=== PATIENT | female | born 1945 | race Caucasian/White ===

== ENCOUNTER 2019-10-05 14:15 | Outpatient (CLI) | payer MEDICARE, SELFPAY ==
[2019-10-05 15:08] LABS: Alanine Aminotransferase 24 U/L (0-33); Albumin Level 4.4 g/dL (3.5-5.2); Alkaline Phosphatase 57 IU/L (35-105); Anion Gap 15.7 (5-19); Aspartate Amino Transferase 29 U/L (0-32); Blood Urea Nitrogen 19 mg/dL (8-23); Calcium 10.3 mg/dL (8.5-10.5); Carbon Dioxide 25 mmol/L (22-29); Chloride 100 mmol/L (98-107); Globulin 3.5 g/dL (1.3-4.6); Glucose 296 mg/dL (65-115); Potassium 4.7 mmol/L (3.5-5.1); Sodium 136 mmol/L (136-145); Total Bilirubin 0.3 mg/dL (0.15-1.2); Total Protein 7.9 g/dL (6.6-8.7)
[2019-10-05 15:31] LABS: Basophils # 0.1 10^3/uL (0.0-0.1); Basophils % 0.7 %; Eosinophils # 0.2 10^3/uL (0.0-0.8); Eosinophils % 1.7 %; Hematocrit 41.9 % (37.0-47.0); Hemoglobin 13.9 g/dL (11.5-15.3); Lymphocytes # 2.5 10^3/uL (0.8-4.8); Lymphocytes % 28.5 %; Mean Corpuscular HGB Conc 33.2 g/dL (30.0-36.0); Mean Corpuscular Volume 96.3 fL (81-99); Mean Platelet Volume 11.2 fL (7.4-10.4); Monocytes # 0.4 10^3/uL (0.2-0.9); Monocytes % 4.9 %; Neutrophils # 5.6 10^3/uL (1.8-7.7); Nucleated Red Blood Cells % 0 %; Platelet Count 204 10^3/cmm (130-400); Red Blood Count 4.35 10^6/uL (4.1-5.3); Red Cell Distribution Width 13.1 % (12.1-15.1); White Blood Count 8.7 10^3/uL (4.0-10.0)
[2019-10-05 18:28] LABS: Estmated Average Glucose 258; Hemoglobin A1C 10.6 % (4.0-6.0)
== END 2019-10-05 14:16 | disposition home or self-care (01) ==
LOC: LAB 14:24
PROVIDERS: Family Provider Internal Medicine; PCP Internal Medicine; Visit Provider Internal Medicine
DX: I10 Essential (primary) hypertension (principal); E11.9 Type 2 diabetes mellitus without complications
CPT/HCPCS: 36415; 80053; 83036; 85025

== ENCOUNTER → 2020-03-18 13:40 | Outpatient (BNVA) | payer MEDICARE, SELFPAY | PROVIDERS: Family Provider Internal Medicine; PCP Internal Medicine; Visit Provider Nurse Practitioner | DX: S99.929A Unspecified injury of unspecified foot, initial encounter (principal); X58.XXXA Exposure to other specified factors, initial encounter | CPT/HCPCS: 73610; 73630 ==

== ENCOUNTER 2020-05-19 13:31 | Outpatient (CLI) | payer MEDICARE, MEDICAID, SELFPAY ==
--- NOTE | 2020-05-19 13:35 | USCV_ITS ---
Dana Bowmannda Age: 75 Gender: F : 1945 Exam Date: 05/19/2020 13:31 Ordering Phys: Belkys Morales MD Technologist: Exam Location: [facility] [place]_ Indication: DECREASED DORSALIS PEDIS PULSE RIGHT LEFT Brachial 143.00 mmHg Brachial 138.00 mmHg Pressure (mmHg) Waveform Pressure (mmHg) Waveform 161.00 Above Knee 159.00 Below Knee 159.00 DONOR SERVICES TEAM LEADER 166.00 DPA 1.16 Ankle/Brachial Index 123.00 Pre-Exercise Toe Pressure 0.86 Pre-Exercise Toe/Brachial Index FINDINGS Normal PEG and TBI on the right side PVR waveforms showing blunting of the dicrotic notch CONCLUSIONS Features of arterial sclerosis with no significant arterial obstruction on the right side Dr Lexie Reyes MD FAC (Electronically Signed) Final Date: 20 May 2020 08:53 S
--- NOTE | 2020-05-19 13:44 | US_ITS ---
WS: [id number] ULTRASOUND RENAL TECHNIQUE: Ultrasound examination of both kidneys. CLINICAL INFORMATION: CKD III COMPARISON: None. FINDINGS: RIGHT: Right kidney is normal in size and appearance. Echogenicity: Normal. Cortical thickness: 1.3 cm; Normal. Hydronephrosis: None. Perinephric fluid: None. Right kidney measures: 10.2 cm x 4.7 cm x 3.9 cm. LEFT: Left kidney is normal in size and appearance. Echogenicity: Normal. Cortical thickness: 1.4 cm; Normal. Hydronephrosis: None. Perinephric fluid: None. Left kidney measures: 9.4 cm x 4.1 cm x 4.5 cm. Normal visualized aorta. US/US renal BI* [id number] IMPRESSION: Normal renal ultrasound
== END 2020-05-19 13:32 | disposition home or self-care (01) ==
LOC: US 13:33
PROVIDERS: PCP Internal Medicine; Visit Provider Internal Medicine
DX: R09.89 Other specified symptoms and signs involving the circulatory and respiratory systems (principal); N18.3 Chronic kidney disease, stage 3 (moderate)
CPT/HCPCS: 76770; 93922

== ENCOUNTER 2020-08-06 12:37 | Emergency (ER) | payer MEDICARE, MEDICAID, SELFPAY ==
[2020-08-06 12:40] VITALS: BP 158/84; PULSE 82; RESP 18; TEMP 36.8; O2SAT 94; BMI 33.9
--- NOTE | 2020-08-06 12:45 | XR_ITS ---
WS: [id number] XR knee LT 3V* [id number] REASON FOR EXAM: fall, pain FINDINGS: Total left knee arthroplasty. Arthroplasty components are in proper position and alignment. No findings of loosening or fracture identified. XR/XR knee LT 3V* [id number] IMPRESSION: Left knee arthroplasty with no acute abnormality identified.
--- NOTE | 2020-08-06 12:47 | XR_ITS ---
WS: [id number] XR tibia fibula LT 2V [id number] REASON FOR EXAM: fall, pain, swelling FINDINGS: The left tibia and fibula are intact. No fracture or focal bony lesion. No soft tissue abnormality. XR/XR tibia fibula LT 2V [id number] IMPRESSION: No fracture of the left tibia or fibula.
--- NOTE | 2020-08-06 12:48 | ED_ITS ---
HPI - Extremity Problem General: Chief complaint: Extremity Injury, Lower Stated complaint: fall, left knee pain Time Seen by Provider: 08/06/20 12:45 History of Present Illness: HPI Narrative: Patient complains about the left knee lower leg pain after falling 2 days ago going up 3 steps. Says she just tripped. Said she is able to walk without difficulty. She said her leg just throbs. Has history of knee replacement. MD Complaint: extremity pain and extremity swelling Onset (ago): day(s) Pain Consistency: constant Location: left and lower extremity Severity scale (1-10): 3 Quality: aching Radiation: none Relieving factors: immobilization Associated symptoms: Reports no associated symptoms; Deny chest pain, fever(s) or rash Review of Systems Const: Denies: fever(s), chills or body aches Eyes: Denies: change in vision or blurry vision ENMT: Denies: throat pain or nasal congestion Card: Denies: chest pain or dyspnea on exertion Resp: Denies: dyspnea, productive cough or non-productive cough GI: Denies: abdominal pain, nausea or vomiting Musc: Reports: extremity pain (Area below left knee) and extremity swelling Skin/Breast: Denies: rash Neuro: Denies: headache(s) Psych: Denies: anxiety or depression Ander/Lymph: Denies: easy bruising PFSH ED PFSH: Social History Smoking and tobacco status: never smoked Physical Exam Const: COMMON NORMALS: no acute distress and patient oriented x3 Extremity: LEFT LOWER EXTREMITY: Yes lower leg (Tenderness to mid upper montes area mild swelling noted knee appears fine no ) Neuro: COMMON NORMALS: patient oriented x3 Psych: COMMON NORMALS: mental status grossly normal Course Vital Signs: Vital signs: Vital Signs Temperature 98.2 F 08/06/20 12:40 Pulse Rate 82 08/06/20 12:40 Respiratory Rate 18 08/06/20 12:40 Blood Pressure 158/84 08/06/20 12:40 Pulse Oximetry 94 08/06/20 12:40 Discharge Plan Discharge Prescriptions: No Action aspirin [Adult Aspirin Regimen] 81 mg tablet,delayed release (DR/EC) 81 mg PO DAILY RF: 0 escitalopram oxalate [Lexapro] 10 mg tablet 10 mg PO DAILY RF: 0 lisinopril 20 mg tablet 20 mg PO DAILY RF: 0 trazodone 150 mg tablet 150 mg PO DAILY RF: 0 simvastatin [Zocor] 80 mg tablet 80 mg PO DAILY RF: 0 Coding Level of Care Code ED Topographical Surveyor for Brody Donovan
[2020-08-06 13:18] VITALS: RESP 18
== END 2020-08-06 13:18 | disposition home or self-care (01) ==
PROVIDERS: Emergency Provider Nurse Practitioner Family; PCP Internal Medicine
DX: M25.562 Pain in left knee (principal); Z79.82 Long term (current) use of aspirin
CPT/HCPCS: 12345; 73562; 73590; 99281; 99282

== ENCOUNTER 2020-10-24 13:05 | Outpatient (CLI) | payer MEDICARE, MEDICAID, SELFPAY ==
--- NOTE | 2020-10-24 13:15 | MM_ITS ---
WS: [id number] BILATERAL DIGITAL SCREENING MAMMOGRAPHY WITH CAD CLINICAL INFORMATION: SCREENING HISTORY: Screening mammogram. No current complaints. COMPARISON: TECHNIQUE: Bilateral CC and MLO views. FINDINGS: Scattered fibroglandular densities bilaterally. No suspicious focal mass, asymmetry, calcifications, or architectural distortion. No evidence of malignancy. A few incidental intramammary lymph nodes. MM/[place] [id number] IMPRESSION: BI-RADS: 2-Benign FOLLOW UP: 1 Year Follow-up Recommend return to annual screening mammography.
== END 2020-10-24 13:06 | disposition home or self-care (01) ==
LOC: RADSHAW 13:08
PROVIDERS: PCP Internal Medicine; Visit Provider Internal Medicine
DX: Z12.31 Encounter for screening mammogram for malignant neoplasm of breast (principal)
CPT/HCPCS: 77067

== ENCOUNTER 2021-01-07 11:54 | Outpatient (CLI) | payer MEDICARE, MEDICAID, SELFPAY ==
--- NOTE | 2021-01-07 12:14 | XR_ITS ---
WS: [id number] Chest 2 views, 01/07/2021 Clinical Data: COUGH Comparison: PA and lateral chest, 09/04/2017. Findings: No nodules, masses or effusions are seen. The heart is normal. The pulmonary vascularity is not increased. No pneumonia or pneumothorax is seen. The aortic arch and descending aorta show tortu osity. XR/XR chest 2V* [id number] Impression: Atherosclerosis.
== END 2021-01-07 11:55 | disposition home or self-care (01) ==
PROVIDERS: PCP Internal Medicine; Visit Provider Internal Medicine
DX: R05 Cough (principal); I70.90 Unspecified atherosclerosis
CPT/HCPCS: 71046

== ENCOUNTER 2021-05-26 09:43 | Outpatient (CLI) | payer MEDICARE, MEDICAID, SELFPAY ==
--- NOTE | 2021-05-26 09:57 | XR_ITS ---
WS: [id number] Exam: XR hip RT 2-3V wo/w pel* [id number] Date/Time of Exam: 05/26/2021 10:03 AM Reason For Exam: R HIP PAIN/DDD, LUMBOSACRAL SPINE W/RADICULOPATHY No fracture or dislocation. Hypertrophic bone formation along the superior lateral acetabular rim jeremy t might predispose the patient to femoral acetabular impingement. Soft tissue calcification along the greater trochanter. XR/XR hip RT 2-3V wo/w pel* [id number] IMPRESSION: 1. No fracture or dislocation. 2. Hypertrophic bone formation along the superior lateral acetabulum that might predispose the patient to femoral acetabular impingement. 3. Soft tissue calcification along the greater trochanter that might indicate c alcific bursitis.
== END 2021-05-26 09:44 | disposition home or self-care (01) ==
LOC: RAD 09:54
PROVIDERS: PCP Internal Medicine; Visit Provider Internal Medicine
DX: M25.551 Pain in right hip (principal); M25.50 Pain in unspecified joint; Z68.33 Body mass index [BMI] 33.0-33.9, adult; M51.17 Intervertebral disc disorders with radiculopathy, lumbosacral region
CPT/HCPCS: 73502

== ENCOUNTER → 2021-06-03 12:41 | Outpatient (BNVA) | payer MEDICARE, MEDICAID, SELFPAY | PROVIDERS: PCP Internal Medicine; Referring Provider Nurse Practitioner Family; Visit Provider Specialist | DX: M25.551 Pain in right hip (principal); M16.11 Unilateral primary osteoarthritis, right hip | CPT/HCPCS: 73502 ==

== ENCOUNTER 2021-06-05 19:50 | Emergency (ER) | payer MEDICARE, MEDICAID, SELFPAY ==
[2021-06-05 20:00] VITALS: BP 185/70; PULSE 78; RESP 18; TEMP 36.7; O2SAT 97
[2021-06-05 20:23] VITALS: BP 148/90; PULSE 78; RESP 20; TEMP 36.7; O2SAT 99
[2021-06-05] MEDS: famotidine 20 mg Tablet PO (20:23)
[2021-06-05] MEDS: lidocaine 2% viscous 15 ML, aluminum-mag hydrox-simethicon 30 ML, sucralfate oral liq 1 GM PO (20:23)
--- NOTE | 2021-06-05 20:24 | ED_ITS ---
HPI - General Adult General: Chief complaint: Allergic Reaction Stated complaint: Swallowed Bee stung her in Throat\Swelling SOB Time Seen by Provider: 06/05/21 19:58 History of Present Illness: HPI narrative: Patient is a 77-year-old female with no significant allergies presents the emergency room after reporting she was stung in her mouth by a bee. Patient was drinking water when this happened and quickly threw up to be since then, patient had a right-sided throat irritation and has not been able to tolerate p.o. Patient denies any drooling, throat swelling, wheezing, difficulty breathing, or any other issues. Patient presents emergency room for evaluation of pain. No visible rashes, diarrhea, abdominal complaints nausea vomiting. Onset: 20 minutes ago Duration:20 minutes Location:home Severity: mild/moderate Review of Systems Narrative: Constitutional: No fever, no chills. HEENT: No vision changes, +stung by a bee in mouth CV: No chest pain, no palpitations PULM: no cough, no dyspnea. GI: No abdominal pain, no N/V/D. : No dysuria MSKEL: No muscle pain SKIN: No new rashes, no lesions. NEURO: No headache, no focal weakness. HEME: No visible bruises PSYCH: Normal mood PFSH ED PFSH: Social History Smoking and tobacco status: never smoked Female Reproductive History: Date of last menstrual period: 11/20/20 Physical Exam Narrative: EXAM NARRATIVE: Head: Atraumatic Eyes: PERRL, conjunctiva without injection ENT: Mucous membrane moist Gen: ?No acute distress ?Breathing comfortably, no respiratory distress, no stridor Voice: ?Normal quality and projection? OC/OP: ?Oral cavity without masses or lesions seen on lips, gingiva, buccal mucosa, floor of mouth, tongue, palate, or base of tongue; Oropharynx clear, no masses, no lesions, uvula midline Neck: ?No lymphadenopathy, no thyromegaly, trachea midline, palpable landmarks LUNGS: LCTAB, no crackles/rhonchi CV: RRR ABDOMEN: Soft, nontender in all quadrants EXTREMITY: Normal ROM SKIN: No rash or erythema NEURO: Awake and alert, no focal motor deficits PSYCH: Normal mood and affect Course Vital Signs: Vital signs: Vital Signs Temperature 98.1 F 06/05/21 20:23 Pulse Rate 78 06/05/21 20:23 Respiratory Rate 20 H 06/05/21 20:23 Blood Pressure 148/90 06/05/21 20:23 Pulse Oximetry 99 06/05/21 20:23 MDM - General Adult MDM Narrative: Medical decision making narrative: 76F presenting to ER for evaluation of throat pain after being stung by the bee. Patient says that she was able to regurgitate the bee. She does not have any allergies to any medicine. On exam, patient has intact oral airway. No signs of airway compromise. Hemodynamically stable. Patient was observed in the emergency room for 1 hour. Patient received Maalox, light viscous lidocaine, and Pepcid. There is no signs of worsening or any airway compromise. Disposition: Discharge. Patient counseled regarding diagnostic impression, treatment plan. Patient given ED strict return precautions to return for continuation, worsening, or development of new symptoms. Instructed to f/u w/ PCP regarding symptoms today. Patient verbalized understanding. Discharge Plan Discharge Patient Disposition: Home Clinical Impression: Accidental bee sting Condition: Stable Prescriptions: New Pepcid 20 mg tablet 20 mg PO BID PRN (Reason: pain) 7 Days Qty: 14 RF: 0 No Action aspirin [Adult Aspirin Regimen] 81 mg tablet,delayed release (DR/EC) 81 mg PO DAILY RF: 0 escitalopram oxalate [Lexapro] 10 mg tablet 10 mg PO DAILY RF: 0 lisinopril 20 mg tablet 20 mg PO DAILY RF: 0 trazodone 150 mg tablet 150 mg PO DAILY RF: 0 simvastatin [Zocor] 80 mg tablet 80 mg PO DAILY RF: 0 Voltaren 1 % gel 4 g topical QID Qty: 100 RF: 0 Discharge Orders: Discharge ED (Routine); Ordered 06/05/21 Ordered By: Mitzi Guy Referrals: Belkys Morales MD [Primary Care Provider] - Discharge Diet: Advance as tolerated Discharge Activity: Resume usual activity Patient Instructions: Insect Bite or Sting (ED) Activity Restrictions/Additional Instructions: Come back to the emergency room you have any difficulty swallowing, drooling, voice change, throat swelling, or any new or concerning complaints. Coding Level of Care Code ED Rope Twisting Machine Operator for Susannag Zion
== END 2021-06-05 21:21 | disposition home or self-care (01) ==
PROVIDERS: Emergency Provider Emergency Medicine; PCP Internal Medicine
DX: T63.441A Toxic effect of venom of bees, accidental (unintentional), initial encounter (principal); Z79.82 Long term (current) use of aspirin
CPT/HCPCS: 99283

== ENCOUNTER → 2021-06-15 09:04 | Outpatient (BNVA) | payer MEDICARE, MEDICAID, SELFPAY | PROVIDERS: PCP Internal Medicine; Referring Provider Specialist; Visit Provider Anesthesiology Pain Medicine | DX: G89.29 Other chronic pain (principal); M25.551 Pain in right hip; M47.816 Spondylosis without myelopathy or radiculopathy, lumbar region; M53.3 Sacrococcygeal disorders, not elsewhere classified; S33.140A Subluxation of L4/L5 lumbar vertebra, initial encounter; X58.XXXA Exposure to other specified factors, initial encounter | CPT/HCPCS: 72110; 99204 ==

== ENCOUNTER 2021-06-15 10:53 | Outpatient (CLI) | payer MEDICARE, MEDICAID, SELFPAY ==
--- NOTE | 2021-06-15 11:02 | XR_ITS ---
WS: [id number] Lumbar spine, 5 views including both obliques, 06/15/2021. Clinical Data: M47.816 - Spondylosis without myelopathy or radiculopathy... Comparison: Lateral lumbar spine, 07/07/2015. Findings: No compression fractures are seen. There is degenerative disc narrowing at L2-L3. There is a 0.7 cm s ubluxation of L4 on L5. The oblique films show no spondylolysis. The transverse processes and SI join ts are normal. There are clips in the right upper quadrant from a cholecystectomy. XR/XR lumbar spine min 4V [id number] Impression: 1. Degenerative disc narrowing at L2-L3. 2. 0.7 cm subluxation of L4 on L5.
== END 2021-06-15 10:54 | disposition home or self-care (01) ==
LOC: RAD 10:59
PROVIDERS: PCP Internal Medicine; Visit Provider Anesthesiology Pain Medicine
DX: M47.816 Spondylosis without myelopathy or radiculopathy, lumbar region (principal); S33.140A Subluxation of L4/L5 lumbar vertebra, initial encounter; X58.XXXA Exposure to other specified factors, initial encounter
CPT/HCPCS: 72110

== ENCOUNTER 2021-07-22 04:24 | Emergency (ER) | payer MEDICARE, MEDICAID, SELFPAY ==
[2021-07-22 04:28] VITALS: BP 173/87; PULSE 71; RESP 20; TEMP 37.2; O2SAT 98; BMI 41.0
--- NOTE | 2021-07-22 04:47 | ED_ITS ---
HPI - Back Pain/Injury General: Chief Complaint: Back Pain/Injury Stated Complaint: back pain Time Seen by Provider: 07/22/21 04:35 Source: patient Mode of arrival: ambulatory Limitations: no limitations History of Present Illness: HPI Narrative: 76-year-old female who states she has chronic back pain takes hydrocodone muscle relaxants for her back pain. She states that over the last day she felt like she has been overdone it she states that she has been up all day cooking preparing turkeys mowed the yard and states that tonight she started having increasing back pain states she took an extra hydrocodone was not concerned she taken too many. States that she is having some difficulty walking due to weakness. She states her pain currently is improved is a 3 out of 10 which is her typical patient was able to ambulate to the bed denies any bowel or bladder incontinence. Associated symptoms: Deny abdominal pain, chills, dysuria, fever(s), nausea or vomiting Review of Systems Const: Denies: fever(s), chills, body aches or change in appetite Eyes: Denies: blurry vision or eye discomfort ENMT: Denies: throat pain or dental pain Card: Denies: chest pain Resp: Denies: dyspnea GI: Denies: abdominal pain, nausea, vomiting or diarrhea : Denies: dysuria Musc: Reports: back pain Skin/Breast: Denies: rash Neuro: Denies: headache(s) Psych: Denies: depression Ander/Lymph: Denies: easy bruising All/Imm: Denies: urticaria PFSH ED PFSH: Family History (Updated 06/15/21 @ 09:33 by Velma Roach LPN) Other Cancer Diabetes Hyperlipidemia Female Reproductive History: Date of last menstrual period: 11/20/20 Physical Exam Const: COMMON NORMALS: no acute distress, patient oriented x3 and healthy appearing HENMT: COMMON NORMALS: normocephalic and atraumatic HEAD & SCALP: normocephalic and atraumatic Eye: COMMON NORMALS: Equal, round and reactive pupils present and EOMs intact bilaterally PUPIL: Yes Equal, round and reactive pupils present Neck/C-Spine: COMMON NORMALS: full ROM and supple Chest: COMMONS NORMALS: normal inspection of the chest and normal palpation of entire chest wall Resp: COMMON NORMALS: normal respiratory effort, No retractions, No use of accessory muscles and clear to auscultation bilaterally AUSCULTATION: clear to auscultation bilaterally Cardio: COMMON NORMALS: regular rate, regular rhythm and No murmurs present (Cardio) RATE: regular rate RHYTHM: regular rhythm GI: COMMON NORMALS: Normal to inspection, nondistended, normoactive bowel sounds present, Soft to palpation, non-tender and no masses PALPATION: Yes Soft to palpation Back/Pelvis: OTHER: Slight paraspinal tenderness to lumbar spine no midline tenderness no saddle anesthesia 5 out of 5 strength bilateral extremities Extremity: COMMON NORMALS: normal to inspection and full ROM Neuro: COMMON NORMALS: patient oriented x3, moves all extremities and no focal motor deficits Psych: COMMON NORMALS: mental status grossly normal, Normal thought process present and cooperative THOUGHT PROCESS: Normal thought process present Skin: COMMON NORMALS: no rashes or lesions noted and no wounds GENERAL SKIN EXAM: no rashes or lesions noted Course Vital Signs: Vital signs: Vital Signs Temperature 99.0 F 07/22/21 04:28 Pulse Rate 61 07/22/21 05:08 Respiratory Rate 18 07/22/21 05:08 Blood Pressure 143/101 07/22/21 05:08 Pulse Oximetry 95 07/22/21 05:08 MDM - Back Pain/Injury MDM Narrative: Medical decision making narrative: Patient presents with back pain is chronic in nature with acute exacerbation due to activity she is improved here she is stable for discharge she is to follow-up PCP and return if worsening. Discharge Plan Discharge Patient Disposition: Home Clinical Impression: Low back pain Qualifiers: Chronicity: chronic Back pain laterality: bilateral Sciatica presence: without sciatica Qualified Code(s): M54.50 - Low back pain, unspecified Condition: Stable Prescriptions: No Action aspirin [Adult Aspirin Regimen] 81 mg tablet,delayed release (DR/EC) 81 mg PO DAILY RF: 0 escitalopram oxalate [Lexapro] 10 mg tablet 10 mg PO DAILY RF: 0 lisinopril 20 mg tablet 20 mg PO DAILY RF: 0 trazodone 150 mg tablet 150 mg PO DAILY RF: 0 simvastatin [Zocor] 80 mg tablet 80 mg PO DAILY RF: 0 methylprednisolone 4 mg tablets,dose pack See Rx Instructions PO PER PKG DIR Qty: 21 RF: 0 Voltaren 1 % gel 4 g topical QID Qty: 100 RF: 0 Discharge Orders: Discharge ED (Routine); Ordered 07/22/21 Ordered By: Alfie Diez Referrals: Belkys Morales MD [Primary Care Provider] - 1-3 days Discharge Diet: Advance as tolerated Discharge Activity: Resume usual activity Patient Instructions: Back Pain (ED) Coding Level of Care Code ED Tool Salvage Worker for Chg Fwd Exam Comprehensive
[2021-07-22 05:08] VITALS: BP 143/101; PULSE 61; RESP 18; O2SAT 95
[2021-07-22] MEDS: ketorolac 30 mg/mL INJ IM (05:10)
[2021-07-22] MEDS: dexamethasone 10 mg/mL INJ IM (05:11)
== END 2021-07-22 05:23 | disposition home or self-care (01) ==
PROVIDERS: Emergency Provider Emergency Medicine; PCP Internal Medicine
DX: M54.50 Low back pain, unspecified (principal); Z79.82 Long term (current) use of aspirin; Z79.891 Long term (current) use of opiate analgesic; I10 Essential (primary) hypertension
CPT/HCPCS: 96372; 99283; J1100; J1885

== ENCOUNTER 2021-11-05 11:48 | Emergency (ER) | payer MEDICARE, MEDICAID, SELFPAY ==
--- NOTE | 2021-11-05 11:56 | XR_ITS ---
WS: [id number] Portable AP upright chest, 11/05/2021 Clinical Data: dyspnea Comparison: PA and lateral chest, 01/07/2021. Findings: No nodules, masses or effusions are seen. The heart is normal. The pulmonary vascularity is not increased. No pneumonia or pneumothorax is seen. The aortic arch and descending thoracic aorta s how mild tortuosity. XR/XR chest 1V portable [id number] Impression: Atherosclerosis.
[2021-11-05 12:37] VITALS: BP 117/69; PULSE 73; RESP 20; TEMP 36.8; O2SAT 91; BMI 30.1
[2021-11-05 12:58] LABS: Basophils % 0.6 %; Eosinophils # 0.1 10^3/uL (0.0-0.8); Eosinophils % 1.7 %; Hematocrit 42.5 % (37.0-47.0); Hemoglobin 13.8 g/dL (11.5-15.3); Lymphocytes % 29.5 %; Mean Corpuscular HGB Conc 32.5 g/dL (30.0-36.0); Mean Corpuscular Hemoglobin 30.3 pg (28.0-34.0); Mean Corpuscular Volume 93.4 fl (81-99); Mean Platelet Volume 11.3 fL (7.4-10.4); Monocytes # 0.4 10^3/uL (0.2-0.9); Neutrophils # 4.26 10^3/uL (1.8-7.7); Neutrophils % 61.9 %; Nucleated Red Blood Cells % 0 %; Platelet Count 161 10^3/cmm (130-400); Red Blood Count 4.55 10^6/uL (4.1-5.3); Red Cell Distribution Width 13.6 % (12.1-15.1); White Blood Count 6.9 10^3/uL (4.0-10.0)
[2021-11-05 13:16] LABS: Anion Gap 18.8 (5-19); Blood Urea Nitrogen 35 mg/dL (8-23); C Reactive Protein 6.4 mg/L (0.0-4.9); Calcium 9.7 mg/dL (8.5-10.5); Carbon Dioxide 24 mmol/L (22-29); Chloride 100 mmol/L (98-107); Glucose 309 mg/dL (65-115); Osmolality Calculated 306 mOsm/kg (285-295); Potassium 4.8 mmol/L (3.5-5.1); Sodium 138 mmol/L (136-145)
[2021-11-05 13:23] LABS: Procalcitonin 0.08 ng/mL (0-0.5)
--- NOTE | 2021-11-05 13:24 | W.ED.WEAKNES ---
HPI - Weakness General: Chief complaint: Weakness Stated complaint: thinks she has pneumonia Time Seen by Provider: 11/05/21 13:07 History of Present Illness: Patient presents with congestion been increased over the last month. Said she has lost overnight back her throat and she is having a cough that up and thought she might have pneumonia. Blood sugars normally staying to the high 200 range for her. Does see primary care provider concerning that. Associated symptoms: Denies chest pain, chills, fever(s), headache(s), nausea or vomiting Review of Systems Narrative: Feels weak at times. Said this all started when she fell and struck her chest a month ago and then she started having what she thought was bronchitis/pneumonia type symptoms. Const: Denies: fever(s), chills or body aches Eyes: Denies: eye discomfort ENMT: Reports: other (Possible sinus drainage); Denies: throat pain Card: Denies: chest pain Resp: Reports: productive cough; Denies: dyspnea GI: Denies: abdominal pain, nausea or vomiting Skin/Breast: Denies: rash Neuro: Denies: headache(s) Psych: Denies: depression or suicidal ideation [facility] ED PFSH: Family History (Updated 06/15/21 @ 09:33 by Velma Roach LPN) Other Cancer Diabetes Hyperlipidemia Female Reproductive History: Date of last menstrual period: 11/20/20 Physical Exam Const: COMMON NORMALS: no acute distress, patient oriented x3 and alert HENMT: COMMON NORMALS: normocephalic and external ears normal HEAD & SCALP: normocephalic FACE & SINUS: sinus tenderness maxillary (Left side) EXTERNAL EAR: Yes external ears normal Eye: COMMON NORMALS: EOMs intact bilaterally Neck/C-Spine: COMMON NORMALS: no JVD Resp: COMMON NORMALS: normal respiratory effort and No use of accessory muscles Cardio: COMMON NORMALS: no JVD GI: INSPECTION: Yes normal to inspection Extremity: COMMON NORMALS: normal to inspection and full ROM Neuro: COMMON NORMALS: patient oriented x3 SENSORIUM/ORIENTATION: Yes alert Psych: COMMON NORMALS: mental status grossly normal Skin: COMMON NORMALS: no rashes or lesions noted GENERAL SKIN EXAM: no rashes or lesions noted Course Vital Signs: Vital signs: Vital Signs Temperature 98.3 F 11/05/21 12:37 Pulse Rate 73 11/05/21 12:37 Respiratory Rate 20 H 11/05/21 12:37 Blood Pressure 117/69 11/05/21 12:37 Pulse Oximetry 91 11/05/21 12:37 MDM - Weakness Medical Decision Making Most likely sinus drainage. Patient said she fell a month ago striking her left chest and started developing symptoms of drainage and cough after that thought she might have pneumonia. Laboratory studies were consistent with past and no signs of acute infection chest x-ray was negative. Left maxillary sinus was tender. Patient instructed take antibiotics follow-up primary care provider. Lab Data : 11/05/21 12:50 11/05/21 12:50 Radiology Impressions Chest X-Ray 11/05/21 11:56 Impression: Atherosclerosis. Laboratory Results WBC 6.9 10^3/uL (4.0-10.0) 11/05/21 12:50 RBC 4.55 10^6/uL (4.1-5.3) 11/05/21 12:50 Hgb 13.8 g/dL (11.5-15.3) 11/05/21 12:50 Hct 42.5 % (37.0-47.0) 11/05/21 12:50 MCV 93.4 fl (81-99) 11/05/21 12:50 MCH 30.3 pg (28.0-34.0) 11/05/21 12:50 MCHC 32.5 g/dL (30.0-36.0) 11/05/21 12:50 RDW 13.6 % (12.1-15.1) 11/05/21 12:50 Plt Count 161 10^3/cmm (130-400) 11/05/21 12:50 MPV 11.3 fL (7.4-10.4) H 11/05/21 12:50 Neut % (Auto) 61.9 % 11/05/21 12:50 Lymph % (Auto) 29.5 % 11/05/21 12:50 [place] % (Auto) 6.0 % 11/05/21 12:50 Eos % (Auto) 1.7 % 11/05/21 12:50 Baso % (Auto) 0.6 % 11/05/21 12:50 Neut # (Auto) 4.26 10^3/uL (1.8-7.7) 11/05/21 12:50 Lymph # (Auto) 2.0 10^3/uL (0.8-4.8) 11/05/21 12:50 [place] # (Auto) 0.4 10^3/uL (0.2-0.9) 11/05/21 12:50 Eos # (Auto) 0.1 10^3/uL (0.0-0.8) 11/05/21 12:50 Baso # (Auto) 0.0 10^3/uL (0.0-0.1) 11/05/21 12:50 Nucleated RBC % (auto) 0 % 11/05/21 12:50 Nucleated RBCs # 0.0 /100WBC 11/05/21 12:50 Sodium 138 mmol/L (136-145) 11/05/21 12:50 Potassium 4.8 mmol/L (3.5-5.1) 11/05/21 12:50 Chloride 100 mmol/L (98-107) 11/05/21 12:50 Carbon Dioxide 24 mmol/L (22-29) 11/05/21 12:50 Anion Gap 18.8 (5-19) 11/05/21 12:50 BUN 35 mg/dL (8-23) H 11/05/21 12:50 Creatinine 1.7 mg/dL (0.5-0.9) H 11/05/21 12:50 GFR Calculation Not Reportable 11/05/21 12:50 Glucose 309 mg/dL (65-115) H 11/05/21 12:50 Calculated Osmolality 306 mOsm/kg (285-295) H 11/05/21 12:50 Calcium 9.7 mg/dL (8.5-10.5) 11/05/21 12:50 C-Reactive Protein 6.4 mg/L (0.0-4.9) H 11/05/21 12:50 Procalcitonin 0.08 ng/mL (0-0.5) 11/05/21 12:50 Discharge Plan Discharge Patient Disposition: Home Clinical Impression: Sinus problem Condition: Stable Prescriptions: New Bactrim DS 800-160 mg tablet 1 tab PO BID 7 Days Qty: 14 0RF No Action aspirin [Adult Aspirin Regimen] 81 mg tablet,delayed release (DR/EC) 81 mg PO DAILY 0RF escitalopram oxalate [Lexapro] 10 mg tablet 10 mg PO DAILY 0RF lisinopril 20 mg tablet 20 mg PO DAILY 0RF trazodone 150 mg tablet 150 mg PO DAILY 0RF simvastatin [Zocor] 80 mg tablet 80 mg PO DAILY 0RF methylprednisolone 4 mg tablets,dose pack See Rx Instructions PO PER PKG DIR Qty: 21 0RF Rx Instructions: PO PER PKG DIR Voltaren 1 % gel 4 g topical QID Qty: 100 0RF Rx Instructions: apply to single knee, ankle, foot; for foot includes sole/toes/top of foot Discharge Orders: Discharge ED (Routine); Ordered 11/05/21 Ordered By: Yakov Fry Referrals: Belkys Morales MD [Primary Care Provider] - Discharge Diet: Usual diet Discharge Activity: Increase activity as tolerated Activity Restrictions/Additional Instructions: Follow-up with medical provider as directed. Take medications as prescribed. Return to the ER or your medical provider if condition worsens. Please read and understand discharge instructions. If any questions ask please. Coding Level of Care Code ED Back Digger Operator for Chg Fwd Exam Comprehensive
== END 2021-11-05 13:42 | disposition home or self-care (01) ==
PROVIDERS: Emergency Medicine; Emergency Provider Nurse Practitioner Family; PCP Internal Medicine
DX: J34.9 Unspecified disorder of nose and nasal sinuses (principal); Z79.82 Long term (current) use of aspirin
CPT/HCPCS: 71045; 80048; 84145; 85025; 86140; 99282

== ENCOUNTER 2022-01-20 16:26 | Emergency (ER) | payer MEDICARE, MEDICAID, SELFPAY ==
[2022-01-20 16:59] VITALS: BP 134/81; PULSE 80; RESP 18; TEMP 36.4; O2SAT 99; BMI 34.2
[2022-01-20 17:02] LABS: Glucose Point of Care 293 mg/dL (70-110)
[2022-01-20 18:04] VITALS: BP 167/71; PULSE 77; RESP 18; O2SAT 94
--- NOTE | 2022-01-20 18:04 | W.ED.FEMALGU ---
HPI - Female Genitourinary General: Chief complaint: Urogenital-Female Stated complaint: Says she has a uti, and blood surgar high Time Seen by Provider: 01/20/22 18:02 History of Present Illness: 76-year-old female comes in today with complaints of dysuria. Patient reports urinary frequency. Patient also reports some diarrhea stools. Patient does have diabetes mellitus when which she takes Tresiba and NovoLog for. Patient reports an increase in her blood glucose with some levels going as high as 500. On arrival to the ER patient's blood glucose was 290. Review of the record for previous labs most blood glucose have been in the upper 200s and lower 300s. Patient appears nontoxic. Patient appears in no pain. Date of Last Menstrual Period: 11/20/20 Review of Systems General: Reports: 10 or more systems reviewed and unremarkable except in HPI and below Const: Denies: fever(s) Eyes: Denies: change in vision Card: Denies: chest pain Resp: Denies: dyspnea GI: Reports: diarrhea : Reports: difficulty voiding and urinary frequency Skin/Breast: Denies: rash PFSH ED PFSH: Family History (Updated 06/15/21 @ 09:33 by Velma Roach LPN) Other Cancer Diabetes Hyperlipidemia Female Reproductive History: Date of last menstrual period: 11/20/20 Physical Exam Const: COMMON NORMALS: alert HENMT: COMMON NORMALS: normocephalic HEAD & SCALP: normocephalic Neck/C-Spine: COMMON NORMALS: full ROM and no lymphadenopathy Resp: COMMON NORMALS: normal respiratory effort and clear to auscultation bilaterally AUSCULTATION: clear to auscultation bilaterally Cardio: COMMON NORMALS: regular rate and regular rhythm RATE: regular rate RHYTHM: regular rhythm GI: COMMON NORMALS: Soft to palpation AUSCULTATION: Yes normoactive bowel sounds PALPATION: Yes Soft to palpation : COMMON NORMALS: Yes no CVA tenderness BLADDER/KIDNEY EXAM: Yes no CVA tenderness Back/Pelvis: COMMON NORMALS: no CVA tenderness Extremity: COMMON NORMALS: no pedal edema Neuro: SENSORIUM/ORIENTATION: Yes alert Skin: COMMON NORMALS: no rashes or lesions noted GENERAL SKIN EXAM: no rashes or lesions noted Course Vital Signs: Vital signs: Vital Signs Temperature 97.5 F L 01/20/22 16:59 Pulse Rate 77 05/25/22 18:04 Respiratory Rate 18 01/20/22 18:04 Blood Pressure 167/71 01/20/22 18:04 Pulse Oximetry 94 01/20/22 18:04 MDM - Female Medical Decision Making Patient comes in today with complaints of discomfort with urination and urinary frequency. Patient also reports some diarrhea and elevation in blood sugar. On exam patient is alert and cooperative. Lungs are clear to auscultation. Abdomen soft nontender. No CVA tenderness. Vital signs are normal. Differential diagnosis includes uncontrolled diabetes, urinary tract infection, gastroenteritis. Laboratory values noted nitrates on the urine with white blood cells, CBC is normal, CMP notes a blood glucose of 276, creatinine 1.3 anion gap 23. No signs of significant acidosis. Patient was given 1 g of Rocephin for a urinary tract infection. Patient be kept on Macrobid for 5 more days. Patient was given some Pyridium 200 for 6 doses for further urinary difficulty. Also discussed with patient need for follow-up with primary care for adjustment of medication for better control of diabetes as this may contribute to her urinary frequency. Patient reported understanding of care plan need for follow-up or return to the ER for worsening symptoms. Lab Data : 01/20/22 18:25 01/20/22 18: Laboratory Results WBC 8.2 10^3/uL (4.0-10.0) 01/20/22 18: RBC 4.38 10^6/uL (4.1-5.3) 01/20/22 18: Hgb 13.9 g/dL (11.5-15.3) 01/20/22 18: Hct 42.5 % (37.0-47.0) 01/20/22 18: MCV 97.0 fl (81-99) 01/20/22 18: MCH 31.7 pg (28.0-34.0) 01/20/22 18: MCHC 32.7 g/dL (30.0-36.0) 01/20/22 18: RDW 13.4 % (12.1-15.1) 01/20/22 18: Plt Count 165 10^3/cmm (130-400) 01/20/22 18: MPV 11.0 fL (7.4-10.4) H 01/20/22 18:25 Neut % (Auto) 56.9 % 01/20/22 18:25 Lymph % (Auto) 36.1 % 01/20/22 18:25 [place] % (Auto) 5.7 % 01/20/22 18:25 Eos % (Auto) 0.7 % 01/20/22 18:25 Baso % (Auto) 0.4 % 01/20/22 18:25 Neut # (Auto) 4.65 10^3/uL (1.8-7.7) 01/20/22 18:25 Lymph # (Auto) 3.0 10^3/uL (0.8-4.8) 01/20/22 18:25 [place] # (Auto) 0.5 10^3/uL (0.2-0.9) 01/20/22 18:25 Eos # (Auto) 0.1 10^3/uL (0.0-0.8) 01/20/22 18:25 Baso # (Auto) 0.0 10^3/uL (0.0-0.1) 01/20/22 18:25 Nucleated RBC % (auto) 0 % 01/20/22 18: Nucleated RBCs # 0.0 /100WBC 01/20/22 18:25 Sodium 137 mmol/L (136-145) 01/20/22 18:25 Potassium 4.3 mmol/L (3.5-5.1) 01/20/22 18:25 Chloride 100 mmol/L (98-107) 01/20/22 18:25 Carbon Dioxide 23 mmol/L (22-29) 01/20/22 18:25 Anion Gap 18.3 (5-19) 01/20/22 18:25 BUN 31 mg/dL (8-23) H 01/20/22 18:25 Creatinine 1.3 mg/dL (0.5-0.9) H 01/20/22 18:25 GFR Calculation Not Reportable 01/20/22 18:25 Glucose 276 mg/dL (65-115) H 01/20/22 18:25 POC Glucose 293 mg/dL (70-110) H 01/20/22 16:59 Calculated Osmolality 300 mOsm/kg (285-295) H 01/20/22 18:25 Calcium 9.6 mg/dL (8.5-10.5) 01/20/22 18: Total Bilirubin 0.3 mg/dL (0.15-1.2) 01/20/22 18:25 AST 17 U/L (0-32) 01/20/22 18:25 ALT 20 U/L (0-33) 01/20/22 18:25 Alkaline Phosphatase 55 IU/L (35-105) 01/20/22 18:25 Total Protein 7.1 g/dL (6.6-8.7) 01/20/22 18: Albumin 4.1 g/dL (3.5-5.2) 01/20/22 18: Globulin 3.0 g/dL (1.3-4.6) 01/20/22 18: Urine Color [place] (Yellow) 01/20/22 Unknown Urine Appearance Clear (CLEAR) 01/20/22 Unknown Urine pH 5 (5-7) 01/20/22 Unknown Ur Specific [place] 1.010 (1.005-1.030) 01/20/22 Unknown Urine Protein Trace (Negative) 01/20/22 Unknown Urine Glucose (UA) 4+ (Normal) H 01/20/22 Unknown Urine Ketones Negative (Negative) 01/20/22 Unknown Urine Blood Neg (Negative) 01/20/22 Unknown Urine Nitrate Positive (Negative) H 01/20/22 Unknown Urine Bilirubin 1+ (Negative) H 01/20/22 Unknown Urine Urobilinogen 4 mg/dL (Negative) H 01/20/22 Unknown Ur Leukocyte Esterase Trace (Negative) H 01/20/22 Unknown Urine RBC 0-4 /hpf (0-2) H 01/20/22 Unknown Urine WBC 5-10 /hpf (0-5) H 01/20/22 Unknown Ur Squamous Epith Cells 0-4 /hpf (0-5) H 01/20/22 Unknown Amorphous Sediment Not Reportable 01/20/22 Unknown Urine Bacteria Trace /hpf (NONE) 01/20/22 Unknown Discharge Plan Discharge Patient Disposition: Home Clinical Impression: Urinary tract infection Qualifiers: Urinary tract infection type: acute cystitis Hematuria presence: without hematuria Qualified Code(s): N30.00 - Acute cystitis without hematuria Condition: Stable Prescriptions: New nitrofurantoin monohyd/m-cryst [Macrobid] 100 mg capsule 100 mg PO BID 5 Days Qty: 10 0RF Rx Instructions: must administer with a meal/food phenazopyridine 200 mg tablet 200 mg PO Q8H Qty: 6 0RF No Action aspirin [Adult Aspirin Regimen] 81 mg tablet,delayed release (DR/EC) 81 mg PO DAILY 0RF escitalopram oxalate [Lexapro] 10 mg tablet 10 mg PO DAILY 0RF lisinopril 20 mg tablet 20 mg PO DAILY 0RF trazodone 150 mg tablet 150 mg PO DAILY 0RF simvastatin [Zocor] 80 mg tablet 80 mg PO DAILY 0RF methylprednisolone 4 mg tablets,dose pack See Rx Instructions PO PER PKG DIR Qty: 21 0RF Rx Instructions: PO PER PKG DIR Voltaren 1 % gel 4 g topical QID Qty: 100 0RF Rx Instructions: apply to single knee, ankle, foot; for foot includes sole/toes/top of foot Discharge Orders: Discharge ED (Routine); Ordered 01/20/22 Ordered By: Elia Noel Referrals: Belkys Morales MD [Primary Care Provider] - Discharge Diet: Usual diet Discharge Activity: Increase activity as tolerated Patient Instructions: Urinary Tract Infection in Older Adults (ED) Activity Restrictions/Additional Instructions: Continue with routine care. Drink plenty of water. Follow-up with primary care in 3 days for recheck. Return to ER for worsening symptoms such as high fever, nausea vomiting, or new concerns. Coding Level of Care Code ED Workers Compensation Legal Secretary for [employer] Fwd Exam Comprehensive
[2022-01-20 18:23] LABS: Add Urine Microscopic? YES; Bilirubin Urine 1+ (Negative); Blood Urine Neg (Negative); Glucose Urine UA 4+ (Normal); Ketones Urine Negative (Negative); Leukocyte Esterase Urine Trace (Negative); Nitrate Urine Positive (Negative); Protein Urine Trace (Negative); Urine Appearance Clear (CLEAR); Urine Color Orange (Yellow); Urobilinogen Urine 4 mg/dL (Negative); pH Urine 5 (5-7)
[2022-01-20 18:24] LABS: Add Urine Culture? No; Bacteria Urine TRACE /hpf; RBC Urine 0-4 /hpf (0-2); Squamous Epithelial Cell Urine 0-4 /hpf (0-5)
[2022-01-20 18:45] LABS: Basophils % 0.4 %; Eosinophils # 0.1 10^3/uL (0.0-0.8); Eosinophils % 0.7 %; Hematocrit 42.5 % (37.0-47.0); Hemoglobin 13.9 g/dL (11.5-15.3); Lymphocytes % 36.1 %; Mean Corpuscular HGB Conc 32.7 g/dL (30.0-36.0); Mean Corpuscular Hemoglobin 31.7 pg (28.0-34.0); Monocytes # 0.5 10^3/uL (0.2-0.9); Monocytes % 5.7 %; Neutrophils # 4.65 10^3/uL (1.8-7.7); Neutrophils % 56.9 %; Nucleated Red Blood Cells % 0 %; Platelet Count 165 10^3/cmm (130-400); Red Blood Count 4.38 10^6/uL (4.1-5.3); Red Cell Distribution Width 13.4 % (12.1-15.1); White Blood Count 8.2 10^3/uL (4.0-10.0)
[2022-01-20 18:56] LABS: Alanine Aminotransferase 20 U/L (0-33); Albumin Level 4.1 g/dL (3.5-5.2); Alkaline Phosphatase 55 IU/L (35-105); Anion Gap 18.3 (5-19); Aspartate Amino Transferase 17 U/L (0-32); Blood Urea Nitrogen 31 mg/dL (8-23); Calcium 9.6 mg/dL (8.5-10.5); Carbon Dioxide 23 mmol/L (22-29); Chloride 100 mmol/L (98-107); Glucose 276 mg/dL (65-115); Osmolality Calculated 300 mOsm/kg (285-295); Potassium 4.3 mmol/L (3.5-5.1); Sodium 137 mmol/L (136-145); Total Bilirubin 0.3 mg/dL (0.15-1.2); Total Protein 7.1 g/dL (6.6-8.7)
[2022-01-20 19:00] VITALS: BP 142/63; PULSE 73; RESP 18; O2SAT 93
[2022-01-20] MEDS: cefTRIAXone 1,000 MG in lidocaine 1% 2.1 ML 2.1 MG IM (19:10)
[2022-01-20 19:30] VITALS: BP 149/77; PULSE 75; RESP 18; O2SAT 95
[2022-01-20 19:45] VITALS: BP 146/75; PULSE 77; RESP 18; O2SAT 95
== END 2022-01-20 19:45 | disposition home or self-care (01) ==
PROVIDERS: Emergency Provider Nurse Practitioner Family; PCP Internal Medicine
DX: N30.00 Acute cystitis without hematuria (principal)
CPT/HCPCS: 36416; 80053; 81001; 82962; 85025; 96372; 99283; J0696

== ENCOUNTER 2022-01-23 13:08 | Emergency (ER) | payer MEDICARE, MEDICAID, SELFPAY ==
[2022-01-23 13:40] VITALS: BP 123/76; PULSE 82; RESP 15; TEMP 37.1; O2SAT 95; BMI 34.5
--- NOTE | 2022-01-23 14:32 | ED_ITS ---
HPI - Extremity Problem General: Chief complaint: Extremity Problem,Nontraumatic Stated complaint: right leg pain/shaking Time Seen by Provider: 01/23/22 14:22 History of Present Illness: Patient is a 76-year-old female comes to the ED with right hip pain. This is a chronic issue and has been going on now for several months. Patient was told she has a bone spur right hip that could cause some worsening symptoms. She denies any recent fall or trauma to cause her hip pain. Today she woke up and was having severe right hip pain whenever she bears weight and that it is hard for her to walk on it. She describes pain is starting in her right lateral hip and then radiates into her right groin. she has not taken anything for pain today. She uses a walker to assist her with ambulation. Denies any other symptoms such as numbness or tingling or weakness to lower extremity. Associated symptoms: Deny chest pain, fever(s) or rash Review of Systems Const: Denies: fever(s), chills or fatigue Eyes: Denies: change in vision or eye discomfort ENMT: Denies: throat pain, odynophagia, nasal discharge or nasal congestion Card: Denies: chest pain, palpitations, edema, swelling of feet/ankles, dyspnea on exertion or orthopnea Resp: Denies: dyspnea, productive cough or non-productive cough GI: Denies: abdominal pain, nausea, vomiting, diarrhea, constipation or hematochezia : Denies: flank pain, dysuria or hematuria Musc: Reports: extremity pain (Right hip pain); Denies: neck pain, back pain or extremity swelling Skin/Breast: Denies: rash or new lesions Neuro: Denies: headache(s), numbness in extremities or weakness in extremities PFS ED PFSH: Medical History Diabetes Sacroiliac joint dysfunction of right side Surgical History History of ankle surgery Family History Other Cancer Diabetes Hyperlipidemia Female Reproductive History: Date of last menstrual period: 11/20/20 Physical Exam Const: COMMON NORMALS: no acute distress, patient oriented x3 and alert GENERAL APPEARANCE: cooperative and comfortable HENMT: COMMON NORMALS: normocephalic HEAD & SCALP: normocephalic MOUTH: Normal oral and palatal mucosa present THROAT: posterior oropharynx normal and uvula midline Neck/C-Spine: COMMON NORMALS: supple GENERAL: Yes normal visual inspection Resp: COMMON NORMALS: normal respiratory effort, No retractions, No use of accessory muscles and clear to auscultation bilaterally AUSCULTATION: clear to auscultation bilaterally Cardio: COMMON NORMALS: regular rate, regular rhythm, S1 normal heart sound present, S2 normal heart sound present, No gallops present (Cardio), No clicks present (Cardio), No murmurs present (Cardio) and Peripheral pulses 2+ throughout RATE: regular rate RHYTHM: regular rhythm HEART SOUNDS: S1 n ormal heart sound present and S2 normal heart sound present PERIPHERAL PULSES: Peripheral pulses 2+ throughout GI: COMMON NORMALS: Normal to inspection, nondistended, normoactive bowel sounds present, Soft to palpation, non-tender and no masses PALPATION: Yes Soft to palpation : COMMON NORMALS: Yes no CVA tenderness BLADDER/KIDNEY EXAM: Yes no CVA tenderness Back/Pelvis: COMMON NORMALS: no CVA tenderness Extremity: COMMON NORMALS: normal to inspection Neuro: COMMON NORMALS: patient oriented x3 and moves all extremities SENSORIUM/ORIENTATION: Yes alert Skin: GENERAL SKIN EXAM: dry skin Course Vital Signs: Vital signs: Vital Signs Temperature 98.7 F 01/23/22 13:40 Pulse Rate 82 01/23/22 13:40 Respiratory Rate 15 01/23/22 13:40 Blood Pressure 123/76 01/23/22 13:40 Pulse Oximetry 95 01/23/22 13:40 MDM - Extremity (Nontraumatic) Medical Decision Making Patient is a 76-year-old female comes to the ED with right hip pain. This is a chronic issue and has been going on now for several months. I was reviewing some of her past right hip x-rays that were done on May 26, 2021 and on June 03, 2021. The report notes the patient has some hypertrophic bone formation along the superior lateral acetabulum that might predispose patient to femoral acetabular impingement. X-ray of right hip showed Hypertrophic bone formation along the superior lateral acetabulum that might predispose the patient to femoral acetabular impingement. Placed an order with case management for patient be referred to Ortho for further evaluation of right hip pain which could likely be from this femoral acetabular impingement. She is stable for discharge home and not having any other symptoms besides the pain. Patient was discharged home with some Celebrex for pain and told to follow-up with her PCP in the next week for reevaluation. I told her that director of casework department will contact her in the next several days to set up an appointment with Ortho. Return ED precautions given. Patient is to agree with plan Medical Records I was reviewing some of her past right hip x-rays that were done on May 26, 2021 and on June 03, 2021. The report notes the patient has some hypertrophic bone formation along the superior lateral acetabulum that might predispose patient to femoral acetabular impingement. [address] [address] XRay Report Signed Patient: Terri Bowman Unit #: [id number] : 1945 Age/Sex: 76 / F ADM Date: 05/26/21 Loc: [facility] Room/Bed: Attending Dr: Belkys Morales MD Ordering Provider/Ordering MD: Belkys Morales MD Date of Service: 05/26/21 Procedure(s): XR hip RT 2-3V wo/w pel* [id number] Accession Number(s): [id number] Report Number: [id number] WS: [id number] Exam: XR hip RT 2-3V wo/w pel* [id number] Date/Time of Exam: 05/26/2021 10:03 AM Reason For Exam: R HIP PAIN/DDD, LUMBOSACRAL SPINE W/RADICULOPATHY No fracture or dislocation. Hypertrophic bone formation along the superior lateral acetabular rim that might predispose the patient to femoral acetabular impingement. Soft tissue calcification along the greater trochanter. XR/XR hip RT 2-3V wo/w pel* [id number] IMPRESSION: 1. No fracture or dislocation. 2. Hypertrophic bone formation along the superior lateral acetabulum that might predispose the patient to femoral acetabular impingement. 3. Soft tissue calcification along the greater trochanter that might indicate c alcific bursitis. ? Dictated By: Eric Singletary DO Signed By: Eric Singletary DO Signed Date/Time: 05/26/21 1034 DD/ 1032 Lab Data Radiology Impressions Hip/Pelvis X-Ray 01/23/22 14:42 IMPRESSION: No acute findings. However please see discussion above. Discharge Plan Discharge Patient Disposition: Home Clinical Impression: Right hip pain Condition: Stable Prescriptions: New Celebrex 100 mg capsule 100 mg PO BID PRN (Reason: pain) Qty: 30 0RF No Action aspirin [Adult Aspirin Regimen] 81 mg tablet,delayed release (DR/EC) 81 mg PO DAILY 0RF escitalopram oxalate [Lexapro] 10 mg tablet 10 mg PO DAILY 0RF lisinopril 20 mg tablet 20 mg PO DAILY 0RF trazodone 150 mg tablet 150 mg PO DAILY 0RF simvastatin [Zocor] 80 mg tablet 80 mg PO DAILY 0RF methylprednisolone 4 mg tablets,dose pack See Rx Instructions PO PER PKG DIR Qty: 21 0RF Rx Instructions: PO PER PKG DIR Voltaren 1 % gel 4 g topical QID Qty: 100 0RF Rx Instructions: apply to single knee, ankle, foot; for foot includes sole/toes/top of foot Macrobid 100 mg capsule 100 mg PO BID 5 Days Qty: 10 0RF Rx Instructions: must administer with a meal/food phenazopyridine 200 mg tablet 200 mg PO Q8H Qty: 6 0RF Discharge Orders: Discharge ED (Routine); Ordered 01/23/22 Ordered By: Nj Morris Referrals: Belkys Morales MD [Primary Care Provider] - Discharge Diet: Regular Discharge Activity: Increase activity as tolerated Patient Instructions: Hip Pain (ED) Activity Restrictions/Additional Instructions: Follow-up with medical provider as directed. Case management should be contacted in the next several days set up an appointment with Ortho for further evaluation of right hip pain. Take medications as prescribed. Use walker to help with ambulation. Return to the ER or your medical provider if condition worsens. Please read and understand discharge instructions. Thank you for choosing [facility] for your healthcare needs today. Please realize this is an emergency room and that we are providing you with a medical screening exam and this may not be complete and all inclusive of all the testing and or work up that you may need to determine your ailment or severity of your illness. It is very important that you follow up as instructed or that you return to the Emergency Department should you have concerns or if your condition changes or worsens in any way. Coding Level of Care Code ED Veneer Puller for Chg Fwd Exam Comprehensive
--- NOTE | 2022-01-23 14:42 | XRR_ITS ---
PROCEDURE INFORMATION: Exam: XR Right Hip Exam date and time: 01/23/2022 2:52 PM Age: 76 years old Clinical indication: Hip pain; Right hip; Additional info: Right hip pain TECHNIQUE: Imaging protocol: XR Right hip. Views: 1 view hip with pelvis when performed. COMPARISON: CR XR hip RT 2-3V wo/w pel* [id number] 06/03/2021 12:48 PM FINDINGS: Bones/joints: No acute fracture dislocation. Well maintained joint spaces on this nonweightbearing exam. Stable mild chronic productive changes at the trochanteric and symphysis pubis regions and mild acetabular spurring. There is benign and chronic appearing cortical thickening of the partially visualized femoral shaft. This appears similar to the contralateral side on the prior exam. If there is a clinical concern for stress/insufficiency fracture related to by biphosphonate therapy or other occult osseous injury, follow-up exam or MRI correlation may also be considered. Soft tissues: Unremarkable. Other findings: Two views submitted. XR/XR hip RT 2-3V wo/w pel* [id number] IMPRESSION: No acute findings. However please see discussion above.
[2022-01-23] MEDS: ketorolac 60 mg/2 mL INJ IM (15:07)
--- NOTE | 2022-01-24 08:44 | DCPLANNER ---
Addendum entered by Bridget Crespo 02/15/22 07:37: Patient had a follow up appointment scheduled with ortho - patient did attend appointment. Addendum entered by Bridget Crespo 02/02/22 15:56: Patient has a follow up appointment scheduled for Tuesday, February 10, 2022 at 2:[address] Jackson at ortho. Clinic will call patient with appointment information. Original Note: healthcare project manager had message to schedule a follow up appointment for patient with ortho. healthcare project manager sent patients information to the front office staff at ortho. Patients information will be printed and reviewed. Clinic will call patient with appointment information.
== END 2022-01-23 15:58 | disposition home or self-care (01) ==
PROVIDERS: Emergency Provider Physician Assistant; PCP Internal Medicine
DX: M25.551 Pain in right hip (principal); M89.38 Hypertrophy of bone, other site
CPT/HCPCS: 73502; 96372; 99283; J1885

== ENCOUNTER → 2022-02-10 14:39 | Outpatient (BNVA) | payer MEDICARE, MEDICAID, SELFPAY | PROVIDERS: PCP Internal Medicine; Referring Provider Physician Assistant; Visit Provider Specialist | DX: M25.552 Pain in left hip (principal); M53.3 Sacrococcygeal disorders, not elsewhere classified | CPT/HCPCS: 73502; 99213 ==

== ENCOUNTER 2022-03-20 11:41 | Emergency (ER) | payer MEDICARE, MEDICAID, SELFPAY ==
[2022-03-20 13:07] VITALS: BP 126/80; PULSE 67; RESP 16; TEMP 36.7; O2SAT 95; BMI 33.9
--- NOTE | 2022-03-20 23:14 | W.ED.GENADLT ---
HPI - General Adult General: Chief complaint: General Medical Stated complaint: mouth pain Time Seen by Provider: 03/20/22 13:20 History of Present Illness: 77 yo female patient presents to ER with dental pain to right lower jaw. Pt states she woke up this am with side of face swollen. Pt states she has a dentist appt this week but feels like she needs antibiotics. Pt denies any difficulty swallowing.. Pt denies any fever or neck pain. Associated symptoms: Deny chest pain, confusion, diaphoresis, dyspnea, headache(s), malaise, nausea, rash, palpitations, syncope or vomiting Review of Systems Const: Denies: fever(s), chills, body aches, change in appetite, change in weight, fatigue, malaise or diaphoresis Eyes: Denies: change in vision, blurry vision, blind spots, photophobia, eye discomfort, eye discharge, eye redness, floaters or seeing flashes ENMT: Denies: throat pain, uvular edema, enlarged tonsils, odynophagia, hoarseness, swelling of lips/tongue, oral sores, bleeding gums, dry mouth, ear or mastoid pain, ear discharge, change in hearing, tinnitus, disequilibrium, nasal discharge, nasal congestion, post nasal drip or sinus pain Card: Denies: chest pain, palpitations, irregular heart rhythm, edema, swelling of feet/ankles, lightheadedness, syncope, pre-syncope, dyspnea on exertion, orthopnea, leg pain with exertion or acrocyanosis Resp: Denies: dyspnea, productive cough, non-productive cough, wheezing, stridor, pain on inspiration, change in phlegm color, hemoptysis or chest congestion GI: Denies: abdominal pain, nausea, vomiting, hematemesis, dysphagia, diarrhea, constipation, GI cramping, change in bowel habits or rectal pain : Denies: flank pain, difficulty voiding, dysuria, urinary frequency, urinary urgency, urinary hesitancy or hematuria Musc: Denies: neck pain, back pain, extremity pain, extremity swelling, joint pain, joint swelling, joint redness, joint warmth or deformity Skin/Breast: Denies: rash, pruritus, erythema, sores, new lesions, changes in skin color or dry skin Neuro: Denies: headache(s), numbness in extremities, weakness in extremities, sensory changes, lack of coordination, difficulty walking, frequent falls, dizziness, vertigo, confusion, behavioral changes, Slurred speech present, difficulty communicating thoughts or seizure-like activity Psych: Denies: anxiety, depression, suicidal ideation or homicidal ideation Endo: Denies: polyuria, polydipsia, tired all the time, cold intolerance, excessive sweating, flushing, hot flashes or heat intolerance Ander/Lymph: Denies: easy bruising, easy bleeding, petechiae, purpura, enlarged lymph nodes or tender lymph nodes All/Imm: Denies: urticaria, throat swelling, tongue swelling, facial swelling, acute wheezing or itchy eyes PFSH ED PFSH: Medical History Diabetes Sacroiliac joint dysfunction of right side Surgical History History of ankle surgery Family History Other Cancer Diabetes Hyperlipidemia Social History Smoking and tobacco status: never smoked Female Reproductive History: Date of last menstrual period: 11/20/20 Physical Exam Const: COMMON NORMALS: no acute distress, average body habitus, patient oriented x3, no limitations, healthy appearing, alert and well nourished HENMT: COMMON NORMALS: normocephalic, atraumatic, Normal nasal mucous membranes and turbinates present, moist oral mucous membranes and oropharynx normal; dentition not normal (Patient with pain to right lower back molar that has ovious dental carries ) HEAD & SCALP: normocephalic and atraumatic NOSE: Normal nasal mucous membranes and turbinates present THROAT: no uvular edema Neck/C-Spine: COMMON NORMALS: no JVD Resp: COMMON NORMALS: normal respiratory effort, No retractions, No use of accessory muscles, clear to auscultation bilaterally and percussion normal AUSCULTATION: clear to auscultation bilaterally PERCUSSION: percussion normal Cardio: COMMON NORMALS: no JVD, regular rate, regular rhythm, S1 normal heart sound present, S2 normal heart sound present, No gallops present (Cardio), No clicks present (Cardio), No murmurs present (Cardio), No rub (Cardio) and Peripheral pulses 2+ throughout RATE: regular rate RHYTHM: regular rhythm HEART SOUNDS: S1 normal heart sound present and S2 normal heart sound present PERIPHERAL PULSES: Peripheral pulses 2+ throughout Neuro: COMMON NORMALS: patient oriented x3 SENSORIUM/ORIENTATION: Yes alert Psych: COMMON NORMALS: mental status grossly normal, Normal thought process present, cooperative, normal affect, speech normal, activity/motor behavior normal, denies hallucinations, denies homicidal ideation and denies suicidal ideation SPEECH: Yes normal speech THOUGHT PROCESS: Normal thought process present Skin: COMMON NORMALS: no rashes or lesions noted, no wounds, turgor normal, no jaundice, no petechiae and no mottling GENERAL SKIN EXAM: no rashes or lesions noted and turgor normal Course Vital Signs: Vital signs: Vital Signs Temperature 98.1 F 03/20/22 13:07 Pulse Rate 67 03/20/22 13:07 Respiratory Rate 16 03/20/22 13:07 Blood Pressure 126/80 03/20/22 13:07 Pulse Oximetry 95 03/20/22 13:07 [facility] - General Adult Medical Decision Making Patient is well appearing non toxic and in no acute distress. 77 yo female patient presents to ER with dental pain to right lower jaw. Pt states she woke up this am with side of face swollen. Pt states she has a dentist appt this week but feels like she needs antibiotics. Pt denies any difficulty swallowing.. Pt denies any fever or neck pain. Patient with obvious dental carries to right back lower molar. There is no evidence of drainable abscess. there is mild swelling to the right lower jaw. I will start patient on antibiotics and have her keep her dentist appt as scheduled. there is no evidence if ludwigs angina there is no difficulty swallowing Discharge Plan Discharge Patient Disposition: Home Clinical Impression: Dental infection Condition: Stable Prescriptions: New Cleocin HCl 300 mg capsule 300 mg PO Q8H 7 Days Qty: 21 0RF No Action aspirin [Adult Aspirin Regimen] 81 mg tablet,delayed release (DR/EC) 81 mg PO DAILY 0RF escitalopram oxalate [Lexapro] 10 mg tablet 10 mg PO DAILY 0RF lisinopril 20 mg tablet 20 mg PO DAILY 0RF trazodone 150 mg tablet 150 mg PO DAILY 0RF simvastatin [Zocor] 80 mg tablet 80 mg PO DAILY 0RF celecoxib [Celebrex] 200 mg capsule 200 mg PO DAILY 0RF methylprednisolone 4 mg tablets,dose pack See Rx Instructions PO PER PKG DIR Qty: 21 0RF Rx Instructions: PO PER PKG DIR Voltaren 1 % gel 4 g topical QID Qty: 100 0RF Rx Instructions: apply to single knee, ankle, foot; for foot includes sole/toes/top of foot phenazopyridine 200 mg tablet 200 mg PO Q8H Qty: 6 0RF Celebrex 100 mg capsule 100 mg PO BID PRN (Reason: pain) Qty: 30 0RF Discharge Orders: Discharge ED (Routine); Ordered 03/20/22 Ordered By: Rosa Hinojosa Referrals: Belkys Morales MD [Primary Care Provider] - Discharge Diet: Advance as tolerated Discharge Activity: Increase activity as tolerated Patient Instructions: Opioid Safety Activity Restrictions/Additional Instructions: Please take medications as prescribed Rinse mouth with listerine Please keep dental appt as scheduled this week Return to ER with any worsening of pain or symptoms Coding Level of Care Code ED [employer] for Brody Donovan
== END 2022-03-20 14:45 | disposition home or self-care (01) ==
PROVIDERS: Emergency Provider Registered Nurse; PCP Internal Medicine
DX: K04.7 Periapical abscess without sinus (principal); Z79.82 Long term (current) use of aspirin; E11.9 Type 2 diabetes mellitus without complications
CPT/HCPCS: 99283

== ENCOUNTER 2022-03-26 13:31 | Outpatient (CLI) | payer MEDICARE, MEDICAID, SELFPAY ==
[2022-03-26 14:47] LABS: Basophils % 0.5 %; Eosinophils # 0.1 10^3/uL (0.0-0.8); Eosinophils % 1.1 %; Hematocrit 39.3 % (37.0-47.0); Hemoglobin 13.3 g/dL (11.5-15.3); Lymphocytes # 2.5 10^3/uL (0.8-4.8); Lymphocytes % 37.8 %; Mean Corpuscular HGB Conc 33.8 g/dL (30.0-36.0); Mean Corpuscular Hemoglobin 31.1 pg (28.0-34.0); Mean Platelet Volume 11.4 fL (7.4-10.4); Monocytes # 0.4 10^3/uL (0.2-0.9); Monocytes % 5.5 %; Neutrophils # 3.61 10^3/uL (1.8-7.7); Neutrophils % 54.6 %; Nucleated Red Blood Cells % 0 %; Platelet Count 177 10^3/cmm (130-400); Red Blood Count 4.27 10^6/uL (4.1-5.3); Red Cell Distribution Width 13.2 % (12.1-15.1); White Blood Count 6.6 10^3/uL (4.0-10.0)
[2022-03-26 15:14] LABS: Calcium 9.2 mg/dL (8.5-10.5)
[2022-03-26 15:19] LABS: Parathyroid Hormone 67.8 pg/mL (15-65)
[2022-03-26 15:26] LABS: Creatinine Urine, Random 58 mg/dL (28-217); Microalbum Creatinine Ratio Ur 17 mg/dL (0-20); Microalbumin Random Urine 1 ug/dL (0-20)
[2022-03-26 15:26] LABS: Albumin Level 3.8 g/dL (3.5-5.2); Anion Gap 15.2 (5-19); Blood Urea Nitrogen 24 mg/dL (8-23); Carbon Dioxide 24 mmol/L (22-29); Chloride 103 mmol/L (98-107); Glucose 215 mg/dL (65-115); Phosphorus 3.8 mg/dL (2.5-4.5); Potassium 4.2 mmol/L (3.5-5.1); Sodium 138 mmol/L (136-145)
== END 2022-03-26 13:32 | disposition home or self-care (01) ==
PROVIDERS: PCP Internal Medicine; Visit Provider Internal Medicine Nephrology
DX: N18.4 Chronic kidney disease, stage 4 (severe) (principal)
CPT/HCPCS: 36415; 80069; 82044; 82310; 83970; 85025

== ENCOUNTER 2022-08-11 17:11 | Emergency (ER) | payer MEDICARE, MEDICAID, SELFPAY ==
[2022-08-11 17:30] VITALS: BP 149/80; PULSE 80; RESP 16; TEMP 36.7; O2SAT 95; BMI 34.2
--- NOTE | 2022-08-11 17:58 | W.ED.FALL ---
HPI - Fall General: Chief Complaint: Fall Stated Complaint: fall, dizzy, right hip pain Time Seen by Provider: 08/11/22 17:58 History of Present Illness: Ms. Bowman is a 77-year-old lady with history of chronic right SI joint dysfunction presenting to the emergency department with fall and dizziness. Onset of dizziness was gradual 3 to 4 days ago, she endorses spinning sensation especially with position changes. This became severe to the point that she fell backwards earlier today. Landed primarily on the back right side exacerbating her hip pain which is now moderate to severe in intensity and worse with ambulation. She tried home pain medications without significant relief. Also endorses upper and lower back pain. No other specific changes in health, exacerbating, or alleviating factors identified. Onset (ago): day(s) Fall from: standing Fall witnessed: no Place fall occurred: home Loss of consciousness: None Prolonged down time: no Symptoms prior to fall: none Context: tripped/slipped Location of injury: back and pelvis Severity: severe Quality: stabbing and aching Associated symptoms-after fall: Reports no associated symptoms Review of Systems General: Reports: 10 or more systems reviewed and unremarkable except in HPI and below PFSH ED PFSH: Medical History Diabetes Sacroiliac joint dysfunction of right side Surgical History History of ankle surgery Family History Other Cancer Diabetes Hyperlipidemia Social History Smoking and tobacco status: never smoked Female Reproductive History: Date of last menstrual period: 11/20/20 Physical Exam Const: COMMON NORMALS: alert GENERAL APPEARANCE: cooperative and well developed HENMT: COMMON NORMALS: normocephalic and atraumatic HEAD & SCALP: normocephalic and atraumatic THROAT: posterior oropharynx normal OTHER: No mena signs or raccoon eyes. No hemotympanum. No otorrhea or rhinorrhea. Jaw alignment normal. Dentition baseline. No obvious bony step-offs. No septal hematoma. No evidence of ocular entrapment. Eye: COMMON NORMALS: conjunctivae normal CONJUNCTIVA: Yes conjunctivae normal SCLERA: sclerae normal Neck/C-Spine: COMMON NORMALS: supple GENERAL: Yes trachea midline Resp: COMMON NORMALS: clear to auscultation bilaterally EFFORT & INSPECTION: Yes able to speak in complete sentences AUSCULTATION: clear to auscultation bilaterally Cardio: COMMON NORMALS: regular rate and regular rhythm RATE: regular rate RHYTHM: regular rhythm GI: COMMON NORMALS: Soft to palpation PALPATION: Yes Soft to palpation, No Tenderness to palpation present (GI), No Guarding due to palpation present (GI) and No Rigid due to palpation PERCUSSION: normal to percussion Back/Pelvis: THORACIC SPINE/UPPER BACK: Yes thoracic spinal tenderness and Yes paraspinal muscle tenderness LUMBAR SPINE/LOWER BACK: Yes lumbar spinal tenderness and Yes paraspinal muscle tenderness Extremity: GENERAL: Yes normal exam except as noted and No edema Neuro: COMMON NORMALS: moves all extremities SENSORIUM/ORIENTATION: Yes alert and No Orientation impaired Psych: COMMON NORMALS: mental status grossly normal and Normal thought process present THOUGHT PROCESS: Normal thought process present Course Vital Signs: Vital signs: Vital Signs Temperature 98.1 F 08/11/22 17:30 Pulse Rate 70 08/11/22 19:14 Respiratory Rate 14 08/11/22 19:14 Blood Pressure 131/76 08/11/22 19:14 Pulse Oximetry 93 08/11/22 19:14 Oxygen Delivery Me thod 08/11/22 19:14 MDM - Fall Medical Decision Making 77-year-old lady with history of back pain presenting with exacerbation of back pain after fall and generalized symptoms. Exam as above, no focal neurologic deficits. EKG shows sinus rhythm, no STEMI. Labs with no significant hematologic or metabolic abnormalities, baseline CKD. Head and cervical spine negative for acute traumatic injury. CT T and L-spine with no acute fracture. Hip x-ray negative for acute fracture. Incidental findings including degenerative disc changes discussed with patient. Patient proved with steroids, analgesia, antivertigo medication and able to ambulate. Most likely etiology of patient symptoms is exacerbation of underlying degenerative changes secondary to fall with soft tissue injury. The results of ED evaluation were discussed with the patient including prescriptions and/or symptomatic cares (if applicable) including appropriate and responsible use, followup plan, and return precautions. The patient verbalized understanding and felt safe for discharge. Medical Records I reviewed the patient's medical records. Lab Data I reviewed the patient's lab results. 08/11/22 19:11 08/11/22 19:11 Radiology Impressions Cervical Spine CT 08/11/22 18:05 IMPRESSION: No acute findings. Head CT 08/11/22 18:05 IMPRESSION: 1. Negative for intracranial hemorrhage or mass effect. 2. Mild diffuse white matter disease likely reflecting chronic microvascular ischemic changes. 3. Paranasal sinus opacifications. Hip/Pelvis X-Ray 08/11/22 18:05 IMPRESSION: 1. Negative for fracture or dislocation. 2. Mild osteoarthritis of the hips bilaterally. 3. Moderate sacroiliac joint osteoarthritis bilaterally. Lumbar Spine CT 08/11/22 18:05 IMPRESSION: 1. Negative for fracture or dislocation. 2. L2-L3 broad-based disc bulge with mild bilateral foraminal narrowing. 3. L3-L4 broad-based disc bulge with mild spinal canal and bilateral foraminal narrowing. 4. L4-L5 broad-based disc bulge with grade 1 anterolisthesis of L4 relative to L5 of 4.9 mm resulting in moderate spinal canal and bilateral foraminal narrowing. Thoracic Spine CT 08/11/22 18:05 IMPRESSION: Negative for fracture or dislocation. Laboratory Results WBC 6.4 10^3/uL (4.0-10.0) 08/11/22 19:11 RBC 4.29 10^6/uL (4.1-5.3) 08/11/22 19:11 Hgb 13.3 g/dL (11.5-15.3) 08/11/22 19:11 Hct 41.5 % (37.0-47.0) 08/11/22 19:11 MCV 96.7 fl (81-99) 08/11/22 19:11 MCH 31.0 pg (28.0-34.0) 08/11/22 19:11 MCHC 32.0 g/dL (30.0-36.0) 08/11/22 19:11 RDW 13.2 % (12.1-15.1) 08/11/22 19:11 Plt Count 155 10^3/cmm (130-400) 08/11/22 19:11 MPV 11.7 fL (7.4-10.4) H 08/11/22 19:11 Neut % (Auto) 59.0 % 08/11/22 19:11 Lymph % (Auto) 32.4 % 08/11/22 19:11 [place] % (Auto) 4.7 % 08/11/22 19:11 Eos % (Auto) 3.1 % 08/11/22 19:11 Baso % (Auto) 0.6 % 08/11/22 19:11 Neut # (Auto) 3.77 10^3/uL (1.8-7.7) 08/11/22 19:11 Lymph # (Auto) 2.1 10^3/uL (0.8-4.8) 08/11/22 19:11 [place] # (Auto) 0.3 10^3/uL (0.2-0.9) 08/11/22 19:11 Eos # (Auto) 0.2 10^3/uL (0.0-0.8) 08/11/22 19:11 Baso # (Auto) 0.0 10^3/uL (0.0-0.1) 08/11/22 19:11 Nucleated RBC % (auto) 0 % 08/11/22 19:11 Nucleated RBCs # 0.0 /100WBC 08/11/22 19:11 Sodium 137 mmol/L (136-145) 08/11/22 19:11 Potassium 4.0 mmol/L (3.5-5.1) 08/11/22 19:11 Chloride 101 mmol/L (98-107) 08/11/22 19:11 Carbon Dioxide 27 mmol/L (22-29) 08/11/22 19:11 Anion Gap 13.0 (5-19) 08/11/22 19:11 BUN 24 mg/dL (8-23) H 08/11/22 19:11 Creatinine 1.7 mg/dL (0.5-0.9) H 08/11/22 19:11 GFR Calculation Not Reportable 08/11/22 19:11 Glucose 289 mg/dL (65-115) H 08/11/22 19:11 Calculated Osmolality 299 mOsm/kg (285-295) H 08/11/22 19:11 Calcium 9.0 mg/dL (8.5-10.5) 08/11/22 19:11 Total Bilirubin 0.2 mg/dL (0.15-1.2) 08/11/22 19:11 AST 22 U/L (0-32) 08/11/22 19:11 ALT 21 U/L (0-33) 08/11/22 19:11 Alkaline Phosphatase 62 U/L (35-105) 08/11/22 19:11 Total Protein 7.0 g/dL (6.6-8.7) 08/11/22 19:11 Albumin 3.7 g/dL (3.5-5.2) 08/11/22 19:11 Globulin 3.3 g/dL (1.3-4.6) 08/11/22 19:11 Discharge Plan Discharge Patient Disposition: Home Clinical Impression: Fall, Hip pain, Degenerative disc disease Condition: Stable Prescriptions: New hydrocodone-acetaminophen 7.5-325 mg tablet 1 tab PO Q4H PRN (Reason: pain) Qty: 14 0RF No Action aspirin [Adult Aspirin Regimen] 81 mg tablet,delayed release (DR/EC) 81 mg PO DAILY escitalopram oxalate [Lexapro] 10 mg tablet 10 mg PO DAILY lisinopril 20 mg tablet 20 mg PO DAILY trazodone 150 mg tablet 150 mg PO DAILY simvastatin [Zocor] 80 mg tablet 80 mg PO DAILY celecoxib [Celebrex] 200 mg capsule 200 mg PO DAILY methylprednisolone 4 mg tablets,dose pack See Rx Instructions PO PER PKG DIR Qty: 21 0RF Rx Instructions: PO PER PKG DIR Voltaren 1 % gel 4 g topical QID Qty: 100 0RF Rx Instructions: apply to single knee, ankle, foot; for foot includes sole/toes/top of foot phenazopyridine 200 mg tablet 200 mg PO Q8H Qty: 6 0RF Celebrex 100 mg capsule 100 mg PO BID PRN (Reason: pain) Qty: 30 0RF Discharge Orders: Discharge ED (Routine); Ordered 08/11/22 Ordered By: Chris Schrader Referrals: Belkys Morales MD [Primary Care Provider] - Discharge Diet: Usual diet Discharge Activity: Increase activity as tolerated Patient Instructions: Fall Prevention for Older Adults (ED), Contusion in Adults (ED), Dizziness (ED), Opioid Safety, Pain Management Activity Restrictions/Additional Instructions: Thank you for visiting the emergency department. You were seen and evaluated for dizziness with fall and hip pain. The exact cause of your symptoms is unclear. As discussed you do have multiple degenerative changes in your spine however no acute injury was identified on imaging. Please follow-up with your primary care provider. I will message case management for follow-up with orthopedics. Return to the emergency department for anything that you are concerned about and feel needs emergency department evaluation. Coding Level of Care Code ED [employer] Service Analyst for Brody Donovan
--- NOTE | 2022-08-11 18:05 | CTR_ITS ---
PROCEDURE INFORMATION: Exam: CT Lumbar Spine Without Contrast Exam date and time: 08/11/2022 6:38 PM Age: 77 years old Clinical indication: Injury or trauma; Fall; Blunt trauma (contusions or hematomas); Additional info: Fall, back pain TECHNIQUE: Imaging protocol: Computed tomography of the lumbar spine without contrast. Radiation optimization: All CT scans at this facility use at least one of these dose optimization techniques: automated exposure control; mA and/or kV adjustment per patient size (includes targeted exams where dose is matched to clinical indication); or iterative reconstruction. COMPARISON: MR lumbar spine wo con* [id number] 07/05/2018 12:13 PM RADIATION DOSE METRICS: Total DLP (mGy-cm): 1191.52 FINDINGS: Bones/joints: Negative for fracture or dislocation. L1-L2: No significant disc protrusion. No severe spinal canal stenosis. No significant neural foraminal narrowing. L2-L3: L2-L3 broad-based disc bulge with mild bilateral foraminal narrowing. L3-L4: L3-L4 broad-based disc bulge with mild spinal canal and bilateral foraminal narrowing. L4-L5: L4-L5 broad-based disc bulge with grade 1 anterolisthesis of L4 relative to L5 of 4.9 mm resulting in moderate spinal canal and bilateral foraminal narrowing. L5-S1: No significant disc protrusion. No severe spinal canal stenosis. No significant neural foraminal narrowing. Soft tissues: Unremarkable. CT/CT lumbar spine wo con* [id number] IMPRESSION: 1. Negative for fracture or dislocation. 2. L2-L3 broad-based disc bulge with mild bilateral foraminal narrowing. 3. L3-L4 broad-based disc bulge with mild spinal canal and bilateral foraminal narrowing. 4. L4-L5 broad-based disc bulge with grade 1 anterolisthesis of L4 relative to L5 of 4.9 mm resulting in moderate spinal canal and bilateral foraminal narrowing.
--- NOTE | 2022-08-11 18:05 | XRR_ITS ---
PROCEDURE INFORMATION: Exam: XR Right Hip Exam date and time: 08/11/2022 6:16 PM Age: 77 years old Clinical indication: Hip pain; Right hip; Additional info: Fall, pain TECHNIQUE: Imaging protocol: Radiologic exam of the Right hip. Views: 1 view hip with pelvis when performed. 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 Soft tissues: Unremarkable. XR/XR hip RT 2-3V wo/w pel* [id number] IMPRESSION: 1. Negative for fracture or dislocation. 2. Mild osteoarthritis of the hips bilaterally. 3. Moderate sacroiliac joint osteoarthritis bilaterally.
--- NOTE | 2022-08-11 18:05 | CTR_ITS ---
PROCEDURE INFORMATION: Exam: CT Head Without Contrast Exam date and time: 08/11/2022 6:26 PM Age: 77 years old Clinical indication: Dizziness and weakness, extremity; Additional info: Dizzy, fall TECHNIQUE: Imaging protocol: Computed tomography of the head without contrast. Radiation optimization: All CT scans at this facility use at least one of these dose optimization techniques: automated exposure control; mA and/or kV adjustment per patient size (includes targeted exams where dose is matched to clinical indication); or iterative reconstruction. COMPARISON: CT head wo con* [id number] 10/11/2015 1:00 PM RADIATION DOSE METRICS: Total DLP (mGy-cm): 1102.48 FINDINGS: Brain: Mild diffuse white matter disease likely reflecting chronic microvascular ischemic changes. Cerebral ventricles: No ventriculomegaly. Paranasal sinuses: Paranasal sinus opacifications. Mastoid air cells: Visualized mastoid air cells are well aerated. Bones/joints: Unremarkable. No acute fracture. Soft tissues: Unremarkable. CT/CT head wo con* [id number] IMPRESSION: 1. Negative for intracranial hemorrhage or mass effect. 2. Mild diffuse white matter disease likely reflecting chronic microvascular ischemic changes. 3. Paranasal sinus opacifications.
--- NOTE | 2022-08-11 18:05 | CTR_ITS ---
PROCEDURE INFORMATION: Exam: CT Thoracic Spine Without Contrast Exam date and time: 08/11/2022 6:34 PM Age: 77 years old Clinical indication: Injury or trauma; Fall; Blunt trauma (contusions or hematomas); Additional info: Fall, back pain TECHNIQUE: Imaging protocol: Computed tomography of the thoracic spine without contrast. Radiation optimization: All CT scans at this facility use at least one of these dose optimization techniques: automated exposure control; mA and/or kV adjustment per patient size (includes targeted exams where dose is matched to clinical indication); or iterative reconstruction. COMPARISON: CT cervical spin wo con* [id number] 08/11/2022 6:29 PM RADIATION DOSE METRICS: Total DLP (mGy-cm): 1402.91 FINDINGS: Bones/joints: No acute fracture. Normal alignment. T1-T2: No significant disc protrusion. No severe spinal canal stenosis. No significant neural foraminal narrowing. T2-T3: No significant disc protrusion. No severe spinal canal stenosis. No significant neural foraminal narrowing. T3-T4: No significant disc protrusion. No severe spinal canal stenosis. No significant neural foraminal narrowing. T4-T5: No significant disc protrusion. No severe spinal canal stenosis. No significant neural foraminal narrowing. T5-T6: No significant disc protrusion. No severe spinal canal stenosis. No significant neural foraminal narrowing. T6-T7: No significant disc protrusion. No severe spinal canal stenosis. No significant neural foraminal narrowing. T7-T8: No significant disc protrusion. No severe spinal canal stenosis. No significant neural foraminal narrowing. T8-T9: No significant disc protrusion. No severe spinal canal stenosis. No significant neural foraminal narrowing. T9-T10: No significant disc protrusion. No severe spinal canal stenosis. No significant neural foraminal narrowing. T10-T11: No significant disc protrusion. No severe spinal canal stenosis. No significant neural foraminal narrowing. T11-T12: No significant disc protrusion. No severe spinal canal stenosis. No significant neural foraminal narrowing. T12-L1: No significant disc protrusion. No severe spinal canal stenosis. No significant neural foraminal narrowing. Lungs: Minimal patchy atelectasis. CT/CT thoracic spin wo con* [id number] IMPRESSION: Negative for fracture or dislocation.
--- NOTE | 2022-08-11 18:05 | CTR_ITS ---
PROCEDURE INFORMATION: Exam: CT Cervical Spine Without Contrast Exam date and time: 08/11/2022 6:29 PM Age: 77 years old Clinical indication: Injury or trauma; Fall; Blunt trauma; Additional info: Dizzy, fall TECHNIQUE: Imaging protocol: Computed tomography of the cervical spine without contrast. Radiation optimization: All CT scans at this facility use at least one of these dose optimization techniques: automated exposure control; mA and/or kV adjustment per patient size (includes targeted exams where dose is matched to clinical indication); or iterative reconstruction. COMPARISON: CT head wo con* [id number] 08/11/2022 6:26 PM RADIATION DOSE METRICS: Total DLP (mGy-cm): 325.37 FINDINGS: Bones/joints: No acute fracture. Normal alignment. C2-C3: No significant disc protrusion. No severe spinal canal stenosis. No significant neural foraminal narrowing. C3-C4: No significant disc protrusion. No severe spinal canal stenosis. No significant neural foraminal narrowing. C4-C5: No significant disc protrusion. No severe spinal canal stenosis. No significant neural foraminal narrowing. C5-C6: No significant disc protrusion. No severe spinal canal stenosis. No significant neural foraminal narrowing. C6-C7: No significant disc protrusion. No severe spinal canal stenosis. No significant neural foraminal narrowing. C7-T1: No significant disc protrusion. No severe spinal canal stenosis. No significant neural foraminal narrowing. Lungs: Lung apices are normal. Soft tissues: Unremarkable. CT/CT cervical spin wo con* [id number] IMPRESSION: No acute findings.
--- NOTE | 2022-08-11 18:07 | ECG_ITS ---
[facility] Test Date: 2022-08-11 Pat Name: Terri Bowman Department: Room: Gender: Female [employer] Mechanic: : 1945 Requested By: Chris Schrader Order Number: [id number] Maureen MD: Brian Shepherd M.D. Measurements Intervals [place] Rate: 70 P: 75 HI: 204 QRS: 86 QRSD: 90 T: 42 QT: 394 QTc: 428 Interpretive Statements SINUS RHYTHM No previous ECG available for comparison Electronically Signed On 08-13-2022 13:55:42 LIDDER by Brian Shepherd M.D. [id number]
[2022-08-11 18:53] VITALS: RESP 14
[2022-08-11] MEDS: morphine 4 mg/mL SDV 1 mL IM (18:53)
[2022-08-11 19:14] VITALS: BP 131/76; PULSE 70; RESP 14; O2SAT 93
[2022-08-11] MEDS: meclizine 25 mg tablet PO (19:30)
[2022-08-11 19:38] LABS: Basophils % 0.6 %; Eosinophils # 0.2 10^3/uL (0.0-0.8); Eosinophils % 3.1 %; Hematocrit 41.5 % (37.0-47.0); Hemoglobin 13.3 g/dL (11.5-15.3); Lymphocytes # 2.1 10^3/uL (0.8-4.8); Lymphocytes % 32.4 %; Mean Corpuscular Volume 96.7 fl (81-99); Mean Platelet Volume 11.7 fL (7.4-10.4); Monocytes # 0.3 10^3/uL (0.2-0.9); Monocytes % 4.7 %; Neutrophils # 3.77 10^3/uL (1.8-7.7); Nucleated Red Blood Cells % 0 %; Platelet Count 155 10^3/cmm (130-400); Red Blood Count 4.29 10^6/uL (4.1-5.3); Red Cell Distribution Width 13.2 % (12.1-15.1); White Blood Count 6.4 10^3/uL (4.0-10.0)
[2022-08-11 19:56] LABS: Alanine Aminotransferase 21 U/L (0-33); Albumin Level 3.7 g/dL (3.5-5.2); Alkaline Phosphatase 62 U/L (35-105); Aspartate Amino Transferase 22 U/L (0-32); Blood Urea Nitrogen 24 mg/dL (8-23); Carbon Dioxide 27 mmol/L (22-29); Chloride 101 mmol/L (98-107); Globulin 3.3 g/dL (1.3-4.6); Glucose 289 mg/dL (65-115); Osmolality Calculated 299 mOsm/kg (285-295); Sodium 137 mmol/L (136-145); Total Bilirubin 0.2 mg/dL (0.15-1.2)
[2022-08-11] MEDS: dexamethasone 10 mg/mL INJ IM (20:03)
== END 2022-08-11 20:21 | disposition home or self-care (01) ==
PROVIDERS: Emergency Provider Emergency Medicine; PCP Internal Medicine
DX: M51.36 Other intervertebral disc degeneration, lumbar region (principal); M25.552 Pain in left hip; M25.551 Pain in right hip; Z79.82 Long term (current) use of aspirin; E11.9 Type 2 diabetes mellitus without complications
CPT/HCPCS: 70450; 72125; 72128; 72131; 73502; 80053; 85025; 93005; 96372; 99285; J1100; J2270; J8597

== ENCOUNTER 2023-02-22 00:18 | Observation (INO) | payer MEDICARE, MEDICAID, SELFPAY ==
[2023-02-22] VITALS (18 sets, daily range): BP systolic 110–157; BP diastolic 66–95; PULSE 62–82; RESP 15–18; TEMP 36.3–36.8; O2SAT 90–96; BMI 33.9
--- NOTE | 2023-02-22 00:26 | W.ED.NAVMDI ---
HPI - Nausea/Vomiting/Diarrhea General: Chief complaint: Nausea/Vomiting/Diarrhea Stated complaint: n/v Time Seen by Provider: 02/22/23 00:26 History of Present Illness: Ms. Bowman is a 78-year-old lady with history of diabetes presenting to the emergency department for nausea, vomiting, generalized illness. She notes some diarrhea and intermittent abdominal pain yesterday however today started this morning had multiple episodes of nonbilious nonbloody emesis associated with headache, subjective fevers and chills, shortness of breath, aches, abdominal pain, generalized malaise. She has noted her blood sugar to be elevated. Intensity symptoms moderate. Course has persisted. No other specific changes in health, exacerbating, or alleviating factors identified. Onset (ago): day(s) Description of vomiting: watery Description of diarrhea: watery Associated nausea: Yes Associated abdominal pain: Yes Location of pain: Periumbilical Severity: moderate Exacerbating factors: vomiting and movement Associated symtoms: Reports fatigue, fevers/chills, headache(s), malaise, myalgias, nausea and short of breath Review of Systems General: Reports: 10 or more systems reviewed and unremarkable except in HPI and below Const: Reports: fatigue and malaise GI: Reports: nausea Neuro: Reports: headache(s) PFSH ED PFSH: Medical History Diabetes Sacroiliac joint dysfunction of right side Surgical History History of ankle surgery Family History Other Cancer Diabetes Hyperlipidemia Social History Smoking and tobacco status: never smoked Physical Exam Const: COMMON NORMALS: alert GENERAL APPEARANCE: cooperative, well developed and ill appearing HENMT: COMMON NORMALS: normocephalic and atraumatic HEAD & SCALP: normocephalic and atraumatic THROAT: posterior oropharynx normal Eye: COMMON NORMALS: conjunctivae normal CONJUNCTIVA: Yes conjunctivae normal SCLERA: sclerae normal Neck/C-Spine: COMMON NORMALS: supple and no meningeal signs GENERAL: Yes trachea midline Resp: COMMON NORMALS: clear to auscultation bilaterally EFFORT & INSPECTION: Yes able to speak in complete sentences AUSCULTATION: clear to auscultation bilaterally Cardio: COMMON NORMALS: regular rate and regular rhythm RATE: regular rate RHYTHM: regular rhythm GI: COMMON NORMALS: Soft to palpation PALPATION: Yes Soft to palpation, Yes Tenderness to palpation present (GI), No Guarding due to palpation present (GI) and No Rigid due to palpation Extremity: GENERAL: Yes normal exam except as noted and No edema Neuro: COMMON NORMALS: moves all extremities SENSORIUM/ORIENTATION: Yes alert and No Orientation impaired MENINGEAL SIGNS: Yes no meningeal signs Psych: COMMON NORMALS: mental status grossly normal and Normal thought process present THOUGHT PROCESS: Normal thought process present Course Vital Signs: Vital signs: Vital Signs Temperature 97.9 F 02/22/23 12:29 Pulse Rate 67 02/22/23 12:29 Respiratory Rate 16 02/22/23 12:29 Blood Pressure 110/67 02/22/23 12:29 Pulse Oximetry 90 02/22/23 12:29 Oxygen Delivery Me thod Room Air 02/22/23 11:07 Oxygen Flow Rate 1 02/22/23 08:19 MDM - Nausea/Vomiting/Diarrhea Medical Decision Making 78-year-old lady presenting with generalized illness that began on 02/15 6 in the morning. She has nausea, vomiting, abdominal pain, diarrhea as well as headache. Patient is somewhat ill-appearing though nontoxic. No meningismus or focal neurologic deficits. EKG demonstrates sinus rhythm with first-degree AV block, normal axis and other intervals, no STEMI Labs notable for no leukocytosis, normal hemoglobin and platelet count. Metabolic panel with normal electrolytes, mildly elevated BUN and creatinine. Glucose is elevated without evidence of DKA. Urinalysis without UTI. Viral panel pending. Chest x-ray with minimal lower lobe opacities, nonspecific, no lobar consolidation or pneumothorax. CT head negative for acute intracranial pathology. CT abdomen pelvis with possible gastritis though no other clear etiology of symptoms. Patient treated with multiple rounds of medication including analgesia and antiemetic as well as IV fluids. Mild transient improvement in symptoms and able to tolerate p.o. fluids however subsequently requiring oxygen which is new for her. Need for oxygen redemonstrated on ambulation trial. Etiology is unclear. I feel patient is not likely to have had cardiac event or pulmonary embolism. She will be admitted for observation. The results of ED evaluation were discussed with the patient including plan for admission due to requirement for level of care not available if discharged to prevent significant worsening/deterioration. Patient agreeable with plan. Discussed with hospitalist service who was agreeable to admit patient. Medical Records I reviewed the patient's medical records. Lab Data I reviewed the patient's lab results. 02/22/23 00:35 02/22/23 05:55 Radiology Impressions Chest X-Ray 02/22/23 00:35 IMPRESSION: Minimal left basilar atelectasis/interstitial opacities. Early pneumonia cannot be excluded. Recommend follow-up. Abdomen/Pelvis CT 02/22/23 01:23 IMPRESSION: 1. No acute abnormality seen on the abdomen and pelvis CT. 2. Stomach not well distended with relative gastric fold prominence. Assessment is limited. Underlying mild gastritis cannot be excluded. Small hiatal hernia. Head CT 02/22/23 01:33 IMPRESSION: No acute intracranial abnormality. Laboratory Results WBC 7.6 10^3/uL (4.0-10.0) 02/22/23 00:35 RBC 4.71 10^6/uL (4.1-5.3) 02/22/23 00:35 Hgb 14.6 g/dL (11.5-15.3) 02/22/23 00:35 Hct 44.8 % (37.0-47.0) 02/22/23 00:35 MCV 95.1 fl (81-99) 02/22/23 00:35 MCH 31.0 pg (28.0-34.0) 02/22/23 00:35 MCHC 32.6 g/dL (30.0-36.0) 02/22/23 00:35 RDW 13.0 % (12.1-15.1) 02/22/23 00:35 Plt Count 183 10^3/cmm (130-400) 02/22/23 00:35 MPV 11.3 fL (7.4-10.4) H 02/22/23 00:35 Neut % (Auto) 77.3 % 02/22/23 00:35 Lymph % (Auto) 17.4 % 02/22/23 00:35 [place] % (Auto) 4.1 % 02/22/23 00:35 Eos % (Auto) 0.5 % 02/22/23 00:35 Baso % (Auto) 0.4 % 02/22/23 00:35 Neut # (Auto) 5.86 10^3/uL (1.8-7.7) 02/22/23 00:35 Lymph # (Auto) 1.3 10^3/uL (0.8-4.8) 02/22/23 00:35 [place] # (Auto) 0.3 10^3/uL (0.2-0.9) 02/22/23 00:35 Eos # (Auto) 0.0 10^3/uL (0.0-0.8) 02/22/23 00:35 Baso # (Auto) 0.0 10^3/uL (0.0-0.1) 02/22/23 00:35 Nucleated RBC % (auto) 0 % 02/22/23 00:35 Nucleated RBCs # 0.0 /100WBC 02/22/23 00:35 Sodium 141 mmol/L (136-145) 02/22/23 00:35 Potassium 4.2 mmol/L (3.5-5.1) 02/22/23 00:35 Chloride 101 mmol/L (98-107) 02/22/23 00:35 Carbon Dioxide 27 mmol/L (22-29) 02/22/23 00:35 Anion Gap 17.2 (5-19) 02/22/23 00:35 BUN 27 mg/dL (8-23) H 02/22/23 00:35 Creatinine 1.3 mg/dL (0.5-0.9) H 02/22/23 00:35 GFR Calculation Not Reportable 02/22/23 00:35 Glucose 230 mg/dL (65-115) H 02/22/23 00:35 POC Glucose 253 mg/dL (70-110) H 02/22/23 00:30 Calculated Osmolality 304 mOsm/kg (285-295) H 02/22/23 00:35 Lactic Acid 1.4 mmol/L (0.5-2.2) 02/22/23 00:35 Calcium 9.5 mg/dL (8.5-10.5) 02/22/23 00:35 Total Bilirubin 0.2 mg/dL (0.15-1.2) 02/22/23 00:35 AST 19 U/L (0-32) 02/22/23 00:35 ALT 18 U/L (0-33) 02/22/23 00:35 Alkaline Phosphatase 59 U/L (35-105) 02/22/23 00:35 C-Reactive Protein 8.5 mg/L (0.0-4.9) H 02/22/23 00:35 NT-Pro-B Natriuret Pep 176 pg/mL (0-450) 02/22/23 00:35 Total Protein 7.5 g/dL (6.6-8.7) 02/22/23 00:35 Albumin 4.1 g/dL (3.5-5.2) 02/22/23 00:35 Globulin 3.4 g/dL (1.3-4.6) 02/22/23 00:35 Procalcitonin 0.08 ng/mL (0-0.5) 02/22/23 00:35 Urine Color Light yellow (Yellow) 02/22/23 01:01 Urine Appearance Clear (CLEAR) 02/22/23 01:01 Urine pH 6 (5-7) 02/22/23 01:01 Ur Specific [place] 1.015 (1.005-1.030) 02/22/23 01:01 Urine Protein Neg (Negative) 02/22/23 01:01 Urine Glucose (UA) 4+ (Normal) H 02/22/23 01:01 Urine Ketones Negative (Negative) 02/22/23 01:01 Urine Blood Neg (Negative) 02/22/23 01:01 Urine Nitrate Negative (Negative) 02/22/23 01:01 Urine Bilirubin Neg (Negative) 02/22/23 01:01 Urine Urobilinogen Neg mg/dL (Negative) 02/22/23 01:01 Ur Leukocyte Esterase Negative (Negative) 02/22/23 01:01 Serum Ketones Negative (Negative) 02/22/23 00:35 Lyme Ab (Western Blot) <0.90 index 02/22/23 00:35 E. chaffeensis IgG Ab <1:64 02/22/23 00:35 E. chaffeensis IgM Ab <1:20 02/22/23 00:35 E. chaffeensis Interp See note 02/22/23 00:35 E. chaffeensis Comment Not Reportable 02/22/23 00:35 Rickettsia IgG Ab Not detected 02/22/23 00:35 Rickettsia IgM Ab Not detected 02/22/23 00:35 SARS-CoV-2 Ag (Rapid) negative (Negative) 02/22/23 00:45 Discharge Plan Discharge Patient Disposition: Placed in Observation Admit Provider: Tommie Gore Clinical Impression: Nausea, vomiting, and diarrhea, Headache, Malaise and fatigue, Abdominal pain, Hypoxia Discharge Diet: Cardiac Discharge Activity: Increase activity as tolerated Coding Level of Care Code ED Service Establishment Attendant for Brody Donovan
--- NOTE | 2023-02-22 00:35 | XRR_ITS ---
PROCEDURE INFORMATION: Exam: XR Chest Exam date and time: 02/22/2023 1:00 AM Age: 78 years old Clinical indication: Fever and shortness of breath; Additional info: SOB, fever TECHNIQUE: Imaging protocol: Radiologic exam of the chest. Views: 1 view. COMPARISON: CR XR chest 1V portable [id number] 11/05/2021 12:24 PM FINDINGS: Lungs: Normal lung volumes. Minimal left basilar atelectasis/interstitial opacities are seen. Early pneumonia cannot be excluded. Recommend follow-up. Unchanged minimal linear scarring in the lung bases. Pleural spaces: No pleural effusion. No pneumothorax. Heart/Mediastinum: Normal heart size. There is a mildly tortuous thoracic aorta. Midline trachea. Bones/joints: No acute osseous abnormalities seen. Soft tissues: Multiple external leads are seen overlying the chest, limiting assessment. XR/XR chest 1V portable [id number] IMPRESSION: Minimal left basilar atelectasis/interstitial opacities. Early pneumonia cannot be excluded. Recommend follow-up.
[2023-02-22 00:36] LABS: Glucose Point of Care 253 mg/dL (70-110)
--- NOTE | 2023-02-22 00:37 | ECG_ITS ---
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 Measurements Intervals [place] Rate: 76 P: 61 [place]: 213 QRS: 59 QRSD: 94 T: 44 QT: 403 QTc: 454 Interpretive Statements SINUS RHYTHM WITH FIRST DEGREE AV BLOCK Compared to ECG 08/11/2022 18:59:57 First degree AV block now present Electronically Signed On 02-24-2023 9:53:26 CDT by Lexie Reyes M.D. [email or web address] [email or web address] anderson [email or web address]/store/[id number]
[2023-02-22 00:42] LABS: Basophils % 0.4 %; Eosinophils % 0.5 %; Hematocrit 44.8 % (37.0-47.0); Hemoglobin 14.6 g/dL (11.5-15.3); Lymphocytes # 1.3 10^3/uL (0.8-4.8); Lymphocytes % 17.4 %; Mean Corpuscular HGB Conc 32.6 g/dL (30.0-36.0); Mean Corpuscular Volume 95.1 fl (81-99); Mean Platelet Volume 11.3 fL (7.4-10.4); Monocytes # 0.3 10^3/uL (0.2-0.9); Monocytes % 4.1 %; Neutrophils # 5.86 10^3/uL (1.8-7.7); Neutrophils % 77.3 %; Nucleated Red Blood Cells % 0 %; Platelet Count 183 10^3/cmm (130-400); Red Blood Count 4.71 10^6/uL (4.1-5.3); White Blood Count 7.6 10^3/uL (4.0-10.0)
[2023-02-22] MEDS: sodium chloride 0.9% 1,000 ML 999 ML IV (00:43)
[2023-02-22] MEDS: morphine 4 mg/mL SDV 1 mL IVP ×2 (00:43→04:19)
[2023-02-22] MEDS: ondansetron 2 mg/ML SDV 2 mL 4 MG IVP (00:44)
[2023-02-22 00:49] LABS: Ketone (Acetest) Serum Negative (Negative)
[2023-02-22 00:57] LABS: Lactic Sepsis W/Reflex 1.4 mmol/L (0.5-2.2)
[2023-02-22 01:05] LABS: Add Urine Microscopic? NO; Charge for UA Resulting for Rev
[2023-02-22 01:06] LABS: Bilirubin Urine Neg (Negative); Blood Urine Neg (Negative); Glucose Urine UA 4+ (Normal); Ketones Urine Negative (Negative); Leukocyte Esterase Urine Negative (Negative); Nitrate Urine Negative (Negative); Protein Urine Neg (Negative); Specific Gravity, Urine 1.015 (1.005-1.030); Urine Appearance Clear (CLEAR); Urine Color Light yellow (Yellow); Urobilinogen Urine Neg (Negative); pH Urine 6 (5-7)
[2023-02-22 01:07] LABS: NT Pro B Type Natriuretic Pept 176 pg/mL (0-450); Procalcitonin 0.08 ng/mL (0-0.5)
[2023-02-22 01:12] LABS: SARS Covid-2 Antigen negative (Negative)
[2023-02-22 01:19] LABS: Alanine Aminotransferase 18 U/L (0-33); Albumin Level 4.1 g/dL (3.5-5.2); Alkaline Phosphatase 59 U/L (35-105); Anion Gap 17.2 (5-19); Aspartate Amino Transferase 19 U/L (0-32); Blood Urea Nitrogen 27 mg/dL (8-23); C Reactive Protein 8.5 mg/L (0.0-4.9); Calcium 9.5 mg/dL (8.5-10.5); Carbon Dioxide 27 mmol/L (22-29); Chloride 101 mmol/L (98-107); Globulin 3.4 g/dL (1.3-4.6); Glucose 230 mg/dL (65-115); Osmolality Calculated 304 mOsm/kg (285-295); Potassium 4.2 mmol/L (3.5-5.1); Sodium 141 mmol/L (136-145); Total Bilirubin 0.2 mg/dL (0.15-1.2); Total Protein 7.5 g/dL (6.6-8.7)
--- NOTE | 2023-02-22 01:23 | CTR_ITS ---
PROCEDURE INFORMATION: Exam: CT Abdomen And Pelvis With Contrast Exam date and time: 02/22/2023 2:08 AM Age: 78 years old Clinical indication: Nausea and vomiting; Abdominal pain; Periumbilical; Additional info: Periumbilical abdominal pain, nausea, vomiting, diarrhea TECHNIQUE: Imaging protocol: Computed tomography of the abdomen and pelvis with contrast. Radiation optimization: All CT scans at this facility use at least one of these dose optimization techniques: automated exposure control; mA and/or kV adjustment per patient size (includes targeted exams where dose is matched to clinical indication); or iterative reconstruction. Contrast material: OMNI 350; Contrast volume: 80 ml; Contrast route: INTRAVENOUS (IV); REPORTING DATA: Count of CT and Cardiac NM exams in prior 12 months: This patient has received 4 known CTs and 0 known cardiac nuclear medicine studies in the 12 months prior to the current study. COMPARISON: CR XR hip RT 2-3V wo/w pel* [id number] 08/11/2022 6:16 PM RADIATION DOSE METRICS: Total DLP (mGy-cm): 958.3 FINDINGS: Lungs: Minimal dependent atelectasis is seen. Inferior right middle lobe and left lower lobe 0.3-0.4 cm calcified granulomas are seen. Some left hilar calcified lymph nodes are seen. This represents old granulomatous disease. Liver: Hiim-dc-mootxjul fatty infiltration of the liver. No mass. Gallbladder and bile ducts: Status post prior cholecystectomy. No biliary ductal dilatation. Pancreas: Some atrophic changes of the pancreas are seen. No ductal dilatation. Spleen: Normal splenic parenchymal attenuation. No splenomegaly. Some punctate calcified granulomas are seen. Adrenal glands: Normal CT appearance of the adrenals. No mass. Kidneys and ureters: The corticomedullary phase enhancing kidneys show no contour deforming renal masses. No hydronephrosis or ureterectasis. Stomach and bowel: The non-contrast opacified stomach is not well distended with relative gastric fold prominence. Assessment is limited. Underlying gastritis cannot be excluded. Small hiatal hernia. The noncontrast opacified small bowel loops appear unremarkable. The noncontrast opacified loops of colon show mild constipation. Mild sigmoid colonic diverticulosis is seen, without CT evidence of diverticulitis. The cecum is noted to be in the lower pelvis region. The ileocecal junction appears unremarkable.The lack of orally administered contrast material limits assessment. Appendix: No appendix is specifically identified. No CT evidence of fluid collections or inflammatory stranding adjacent to the cecum. Intraperitoneal space: No free air. No significant fluid collection. Vasculature: No abdominal aortic aneurysm. Inferior vena cava and portal vein appear unremarkable. Lymph nodes: No enlarged lymph nodes. Urinary bladder: No bladder debris. No wall thickening. Reproductive: The patient is status post hysterectomy. Bones/joints: No acute osseous abnormality seen. Accentuated lordotic curvature of the lumbar spine is seen. 0.2 cm anterolisthesis of L4 on L5. Vacuum phenomenon and disc space narrowing is seen at the L2-L3 and L4-L5 levels, related to degenerative disc disease change. Degenerative facet disease changes are seen throughout the lumbar spine, severe in the lower lumbar region. [id number] bilateral hip, moderate symphysis pubis and moderate sacroiliac joint degenerative changes. Soft tissues: Unremarkable. CT/CT abdomen pelvis w con* [id number] IMPRESSION: 1. No acute abnormality seen on the abdomen and pelvis CT. 2. Stomach not well distended with relative gastric fold prominence. Assessment is limited. Underlying mild gastritis cannot be excluded. Small hiatal hernia.
--- NOTE | 2023-02-22 01:33 | CTR_ITS ---
PROCEDURE INFORMATION: Exam: CT Head Without Contrast Exam date and time: 02/22/2023 2:05 AM Age: 78 years old Clinical indication: Pain; Headache not specified TECHNIQUE: Imaging protocol: Computed tomography of the head without contrast. Total images: 396 Radiation optimization: All CT scans at this facility use at least one of these dose optimization techniques: automated exposure control; mA and/or kV adjustment per patient size (includes targeted exams where dose is matched to clinical indication); or iterative reconstruction. REPORTING DATA: Count of CT and Cardiac NM exams in prior 12 months: This patient has received 4 known CTs and 0 known cardiac nuclear medicine studies in the 12 months prior to the current study. COMPARISON: CT head wo con* [id number] 08/11/2022 6:26 PM RADIATION DOSE METRICS: Total DLP (mGy-cm): 1112.54 FINDINGS: Brain: Global brain atrophy and chronic white matter ischemic changes are present. Cerebral ventricles: Ventricles are appropriate in size for degree of atrophy. Paranasal sinuses: Visualized sinuses are unremarkable. No fluid levels. Mastoid air cells: Visualized mastoid air cells are well aerated. Bones/joints: Unremarkable. No acute fracture. Soft tissues: Unremarkable. CT/CT head wo con* [id number] IMPRESSION: No acute intracranial abnormality.
[2023-02-22] MEDS: acetaminophen 500 mg Tablet 1000 MG PO (01:42)
[2023-02-22] MEDS: ketorolac 30 mg/mL INJ 15 MG IVP (01:43)
[2023-02-22] MEDS: iohexol 350 mg/mL 500 mL Btl (per mL) IV (02:12)
--- NOTE | 2023-02-22 03:18 | PC.NURSE ---
Assumed care of patient from YUMIKO Langston at this time.
[2023-02-22] MEDS: metoclopramide 5 mg/mL SDV 2 mL IVP (04:20)
--- NOTE | 2023-02-22 04:49 | PC.NURSE ---
Pt ambulated on room air to restroom. When back in pt room, O2 saturations were in the mid 80s. Pt denied shortness of breath. Dr Schrader was notified, no new orders received at this time.
--- NOTE | 2023-02-22 05:22 | PC.NURSE ---
Report called to YUMIKO Izaguirre on Med-Surg. All questions answered at time of report.
--- NOTE | 2023-02-22 05:51 | P.HP_ITS ---
Providers/Chief Complaint Admitting Physician: Tommie Gore DO Primary Care Provider: Luis Antonio Urbina DO Chief Complaint: n/v History of Present Illness Terri Bowman is a 78 year old female with a past medical history of chronic back pain hip pain and arthritis. Ms. Bowman presents with a 2-day history of viral illness type symptoms. Her her first symptom was sore throat and congestion. She followed that with diarrhea. Last night after dinner nausea and vomiting started. She had chills throughout these first 2 days felt like she had a fever and she had a was able to cough that yellow phlegm up. She states that she came in tonight due to the severe headache nausea vomiting weakness and she could not walk. 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 She denies being around anyone with similar illness. Review of Systems Const: Reports: fever(s), chills, body aches and malaise Eyes: Denies: change in vision ENMT: Reports: throat pain and nasal congestion Card: Denies: chest pain or palpitations Resp: Denies: productive cough GI: Reports: nausea, vomiting and diarrhea; Denies: abdominal pain : Denies: dysuria Musc: Denies: back pain Skin/Breast: Denies: rash or lesions Neuro: Reports: headache(s); Denies: dizziness Psych: Denies: anxiety Ander/Lymph: Denies: easy bruising or easy bleeding Medications/Allergies Home Medications Medication Instructions Recorded Confirmed Last Taken Type aspirin 81 mg tablet,delayed 81 mg PO DAILY 03/18/20 02/22/23 1 Day Ago History release (Adult Aspirin Regimen) ~02/21/23 escitalopram oxalate 10 mg tablet 20 mg PO DAILY 03/18/20 02/22/23 1 Day Ago History (Lexapro) ~02/21/23 lisinopril 20 mg tablet 20 mg PO DAILY 03/18/20 02/10/22 Unknown History simvastatin 80 mg tablet (Zocor) 80 mg PO BEDTIME 03/18/20 02/22/23 2 Days Ago History ~02/20/23 trazodone 150 mg tablet 150 mg PO BEDTIME 03/18/20 02/10/22 2 Days Ago History ~02/20/23 phenazopyridine 200 mg tablet 200 mg PO Q8H 6 doses #6 tabs 01/20/22 02/10/22 Unknown Rx celecoxib 100 mg capsule (Celebrex) 100 mg PO BID PRN pain #30 caps 01/23/22 02/10/22 Unknown Rx celecoxib 200 mg capsule (Celebrex) 200 mg PO DAILY 02/10/22 02/10/22 Unknown History empagliflozin 25 mg tablet 25 mg PO DAILY 02/22/23 02/22/23 1 Day Ago History (Jardiance) ~02/21/23 hydrocodone 7.5 mg-acetaminophen 1 tab PO Q6H PRN Pain 02/22/23 02/22/23 Unknown History 325 mg tablet omeprazole 20 mg capsule,delayed 20 mg PO DAILY 02/22/23 02/22/23 1 Day Ago History release ~02/21/23 Allergies Allergy/AdvReac Type Severity Reaction Status Date / Time No Known Allergies Allergy Verified 02/22/23 00:29 PFSH Acute PFSH: Medical History Diabetes Sacroiliac joint dysfunction of right side Surgical History History of ankle surgery Family History Other Cancer Diabetes Hyperlipidemia Social History Smoking and tobacco status: never smoked Vitals/I&O/Wt Last Vital Signs Temp 97.4 F L 02/22/23 05:19 Pulse 66 02/22/23 05:20 Resp 15 02/22/23 05:20 BP 136/66 02/22/23 05:20 Pulse Ox 94 02/22/23 05:20 O2 Del Method Nasal Cannula 02/22/23 05:20 O2 Flow Rate 2 02/22/23 02:00 02/21/23 02/21/23 02/22/23 14:59 22:59 06:59 Intake Total 1000 / 1000 Balance 1000 / 1000 Weight last 48 hrs Weight 95.3 kg Weight 95.254 kg Physical Exam Narrative: Mrs. Bowman is a pleasant 78 old female who appears tired and worn out. Neurologic: Alert and oriented to person place time and situation no focal deficits HEENT: Head is normocephalic atraumatic pupils equal round and reactive to light and accommodation extraocular muscles are intact nasopharyngeal mucosa moist and pink no exudates neck is supple no JVD carotid bruits or lymphadenopathy Heart: Normal S1-S2 without murmurs clicks gallops or rubs Lungs: Overall diminished aeration there is some mild wheezing and rhonchi in the right lower base Abdomen: Abdominal obesity. Mild tenderness in the epigastrium, no rebound rigidity or guarding. Bowel sounds are sluggish Extremities: No clubbing cyanosis or edema in the lower extremities Skin: No rashes or lesions noted Back: No CVA tenderness no spinal tenderness Data 02/22/23 00:35 02/22/23 00:35 CXR: My impression: Left lower lobe infiltrate Radiologist's impression: Left lower lobe infiltrate versus atelectasis cannot rule out pneumonia CT Head: Radiologist's impression: FINDINGS: Brain: Global brain atrophy and chronic white matter ischemic changes are present. Cerebral ventricles: Ventricles are appropriate in size for degree of atrophy. Paranasal sinuses: Visualized sinuses are unremarkable. No fluid levels. Mastoid air cells: Visualized mastoid air cells are well aerated. Bones/joints: Unremarkable. No acute fracture. Soft tissues: Unremarkable. CT Abd/Pel: Radiologist's impression: 1. ? No acute abnormality seen on the abdomen and pelvis CT. 2. ? Stomach not well distended with relative gastric fold prominence. Assessment is limited. Underlying mild gastritis cannot be excluded. Small hiatal hernia. EKG 1: My Interpretation: Sinus rhythm with first-degree AV block Interactive Project Manager Interpretation: Same A&P Assessment and plan (1) Hypoxia: Per ED physician when patient ambulated her pulse ox dropped to the 80s Placed on O2 per protocol Respiratory assess and treat albuterol nebs (2) Nausea, vomiting, and diarrhea: Treat with fluids and antiemetics (3) Headache: Ordered her home pain medications along with morphine that she received in the ED (4) Malaise and fatigue: (5) Viral syndrome: Supportive care I suspect that her symptoms represent a viral syndrome with possible viral pneumonia/pneumonitis. So consistent with COVID, however her rapid test was negative. PCR is pending Plan Note the CT of abdomen and pelvis caught the lower lobes and however did not comment on a pneumonia Due to severity of illness and incapacitation I will start her on Levaquin. Attestations Medical Necessity Statement*: Patient severely hypoxic with an unidentified source. Patient needs aggressive treatment further diagnostic studies. Anticipate greater than 2 midnights. Coding Level of Care Code 41114 Diagnoses Hypoxia R09.02 Nausea, vomiting, and diarrhea R11.2; R19.7 Headache R51.9 Malaise and fatigue R53.81; R53.83 Viral syndrome B34.9
[2023-02-22] MEDS: dextrose 5%-sod chloride 0.45% 1,000 ML 100 ML IV (05:56)
[2023-02-22] MEDS: famotidine 20 mg/2 mL INJ IVP (05:57)
[2023-02-22] MEDS: heparin 5,000 unit/mL INJ 1 mL 5000 UNIT SUBCUT (06:00)
--- NOTE | 2023-02-22 06:05 | PC.NURSE ---
Patient has home medication bottles with her. Patient states that's everything that I take at home. Patient asks if she takes Lisinopril and she states yes. Unable to verify this. Patient does not have Lisinopril bottle. Patient asks if she takes Celebrex and she states I think I used to. Patient then states I don't know. Able to verify all home medications except for: Lisinopril, Pyridium, and Celebrex.
[2023-02-22] MEDS: levofloxacin-dextrose 5 % 500 MG/100 ML PREMIX 100 MG IV (06:23)
[2023-02-22 06:26] LABS: Anion Gap 13.9 (5-19); Blood Urea Nitrogen 28 mg/dL (8-23); Calcium 8.6 mg/dL (8.5-10.5); Carbon Dioxide 28 mmol/L (22-29); Chloride 104 mmol/L (98-107); Glucose 261 mg/dL (65-115); Osmolality Calculated 307 mOsm/kg (285-295); Potassium 4.9 mmol/L (3.5-5.1); Sodium 141 mmol/L (136-145)
[2023-02-22 06:55] LABS: Adenovirus Not Detected (NOT DETECT); Chlamydia Pneumoniae Not Detected (NOT DETECT); Coronavirus 229E,HKU1,NL63,OC4 Not Detected (NOT DETECT); Human Metapneumovirus Not Detected (NOT DETECT); Human Rhinovirus/Enterovirus Detected (NOT DETECT); Influenza A Not Detected (NOT DETECT); Influenza A H1 Not Detected (NOT DETECT); Influenza A H1-2009 Not Detected (NOT DETECT); Influenza A H3 Not Detected (NOT DETECT); Influenza B Not Detected (NOT DETECT); Mycoplasma Pneumoniae Not Detected (NOT DETECT); Parainfluenza Virus Type 1 Not Detected (NOT DETECT); Parainfluenza Virus Type 2 Not Detected (NOT DETECT); Parainfluenza Virus Type 3 Not Detected (NOT DETECT); Parainfluenza Virus Type 4 Not Detected (NOT DETECT); Respiratory Syncytial Virus A Not Detected (NOT DETECT); Respiratory Syncytial Virus B Not Detected (NOT DETECT); SARS-COV-2 Not Detected (NOT DETECT)
[2023-02-22] MEDS: albuterol 2.5 mg/3 mL Neb INHALATION (08:16)
[2023-02-22] MEDS: docusate sodium 100 mg Capsule PO (08:39)
[2023-02-22] MEDS: aspirin 81 mg EC Tablet PO (08:39)
[2023-02-22] MEDS: lisinopril 20 mg Tablet PO (08:39)
[2023-02-22] MEDS: trazodone 150 mg Tablet PO (08:39)
[2023-02-22] MEDS: escitalopram 10 mg Tablet PO (08:39)
--- NOTE | 2023-02-22 09:46 | PM.DCS ---
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, presented with chief complaint of recurrent chills, patient is not requiring oxygen during my evaluation she is afebrile, CBC BMP unremarkable no signs of UTI her viral panel is positive for rhinovirus, chronic kidney disease at baseline, patient endorsing multiple tick bites in last few days, I will change her antibiotics to doxycycline at the time of discharge and request tick panel for she leaves, patient is endorsing feeling better, she walked on her own without any neurology physician assistant to the bathroom Physical Exam Narrative: No signs of meningitis Brudzinski Kernig sign negative Awake and alert GCS 15 Currently on room air Euvolemic Pleasant and cooperative Discharge Data Studies Completed and Pending Completed Studies During Hospitalization Category Date Time Status CT abdomen pelvis w con* [id number] Stat Cat Scan 02/22/23 01:[address] head wo con* [id number] Stat Cat Scan 02/22/23 01:33 Completed XR chest 1V portable [id number] Stat Exams 02/22/23 00:35 Completed Radiology Impressions Chest X-Ray 02/22/23 00:35 IMPRESSION: Minimal left basilar atelectasis/interstitial opacities. Early pneumonia cannot be excluded. Recommend follow-up. Abdomen/Pelvis CT 02/22/23 01:23 IMPRESSION: 1. No acute abnormality seen on the abdomen and pelvis CT. 2. Stomach not well distended with relative gastric fold prominence. Assessment is limited. Underlying mild gastritis cannot be excluded. Small hiatal hernia. Head CT 02/22/23 01:33 IMPRESSION: No acute intracranial abnormality. Laboratory Results WBC 7.6 10^3/uL (4.0-10.0) 02/22/23 00:35 RBC 4.71 10^6/uL (4.1-5.3) 02/22/23 00:35 Hgb 14.6 g/dL (11.5-15.3) 02/22/23 00:35 Hct 44.8 % (37.0-47.0) 02/22/23 00:35 MCV 95.1 fl (81-99) 02/22/23 00:35 MCH 31.0 pg (28.0-34.0) 02/22/23 00:35 MCHC 32.6 g/dL (30.0-36.0) 02/22/23 00:35 RDW 13.0 % (12.1-15.1) 02/22/23 00:35 Plt Count 183 10^3/cmm (130-400) 02/22/23 00:35 MPV 11.3 fL (7.4-10.4) H 02/22/23 00:35 Neut % (Auto) 77.3 % 02/22/23 00:35 Lymph % (Auto) 17.4 % 02/22/23 00:35 [place] % (Auto) 4.1 % 02/22/23 00:35 Eos % (Auto) 0.5 % 02/22/23 00:35 Baso % (Auto) 0.4 % 02/22/23 00:35 Neut # (Auto) 5.86 10^3/uL (1.8-7.7) 02/22/23 00:35 Lymph # (Auto) 1.3 10^3/uL (0.8-4.8) 02/22/23 00:35 [place] # (Auto) 0.3 10^3/uL (0.2-0.9) 02/22/23 00:35 Eos # (Auto) 0.0 10^3/uL (0.0-0.8) 02/22/23 00:35 Baso # (Auto) 0.0 10^3/uL (0.0-0.1) 02/22/23 00:35 Nucleated RBC % (auto) 0 % 02/22/23 00:35 Nucleated RBCs # 0.0 /100WBC 02/22/23 00:35 Sodium 141 mmol/L (136-145) 02/22/23 05:55 Potassium 4.9 mmol/L (3.5-5.1) 02/22/23 05:55 Chloride 104 mmol/L (98-107) 02/22/23 05:55 Carbon Dioxide 28 mmol/L (22-29) 02/22/23 05:55 Anion Gap 13.9 (5-19) 02/22/23 05:55 BUN 28 mg/dL (8-23) H 02/22/23 05:55 Creatinine 1.5 mg/dL (0.5-0.9) H 02/22/23 05:55 GFR Calculation Not Reportable 02/22/23 05:55 Glucose 261 mg/dL (65-115) H 02/22/23 05:55 POC Glucose 253 mg/dL (70-110) H 02/22/23 00:30 Calculated Osmolality 307 mOsm/kg (285-295) H 02/22/23 05:55 Lactic Acid 1.4 mmol/L (0.5-2.2) 02/22/23 00:35 Calcium 8.6 mg/dL (8.5-10.5) 02/22/23 05:55 Total Bilirubin 0.2 mg/dL (0.15-1.2) 02/22/23 00:35 AST 19 U/L (0-32) 02/22/23 00:35 ALT 18 U/L (0-33) 02/22/23 00:35 Alkaline Phosphatase 59 U/L (35-105) 02/22/23 00:35 C-Reactive Protein 8.5 mg/L (0.0-4.9) H 02/22/23 00:35 NT-Pro-B Natriuret Pep 176 pg/mL (0-450) 02/22/23 00:35 Total Protein 7.5 g/dL (6.6-8.7) 02/22/23 00:35 Albumin 4.1 g/dL (3.5-5.2) 02/22/23 00:35 Globulin 3.4 g/dL (1.3-4.6) 02/22/23 00:35 Procalcitonin 0.08 ng/mL (0-0.5) 02/22/23 00:35 Urine Color Light yellow (Yellow) 02/22/23 01:01 Urine Appearance Clear (CLEAR) 02/22/23 01:01 Urine pH 6 (5-7) 02/22/23 01:01 Ur Specific [place] 1.015 (1.005-1.030) 02/22/23 01:01 Urine Protein Neg (Negative) 02/22/23 01:01 Urine Glucose (UA) 4+ (Normal) H 02/22/23 01:01 Urine Ketones Negative (Negative) 02/22/23 01:01 Urine Blood Neg (Negative) 02/22/23 01:01 Urine Nitrate Negative (Negative) 02/22/23 01:01 Urine Bilirubin Neg (Negative) 02/22/23 01:01 Urine Urobilinogen Neg mg/dL (Negative) 02/22/23 01:01 Ur Leukocyte Esterase Negative (Negative) 02/22/23 01:01 Nasal Influ A H1 2009 PCR Not detected (NOT DETECT) 02/22/23 05:09 Serum Ketones Negative (Negative) 02/22/23 00:35 Adenovirus (PCR) Not detected (NOT DETECT) 02/22/23 05:09 C. pneumoniae DNA (PCR) Not detected (NOT DETECT) 02/22/23 05:09 Coronavirus 229E (PCR) Not detected (NOT DETECT) 02/22/23 05:09 Human Metapneumovir PCR Not detected (NOT DETECT) 02/22/23 05:09 Influenza A (H1) PCR Not detected (NOT DETECT) 02/22/23 05:09 Influenza A (H3) PCR Not detected (NOT DETECT) 02/22/23 05:09 Influenza Type A (PCR) Not detected (NOT DETECT) 02/22/23 05:09 Influenza Type B (PCR) Not detected (NOT DETECT) 02/22/23 05:09 M. pneumoniae (PCR) Not detected (NOT DETECT) 02/22/23 05:09 Parainfluenza 1 (PCR) Not detected (NOT DETECT) 02/22/23 05:09 Parainfluenza 2 (PCR) Not detected (NOT DETECT) 02/22/23 05:09 Parainfluenza 3 (PCR) Not detected (NOT DETECT) 02/22/23 05:09 Parainfluenza 4 (PCR) Not detected (NOT DETECT) 02/22/23 05:09 RSV Type A (PCR) Not detected (NOT DETECT) 02/22/23 05:09 RSV Type B (PCR) Not detected (NOT DETECT) 02/22/23 05:09 Entero/Rhino (PCR) Detected (NOT DETECT) A 02/22/23 05:09 SARS-CoV-2 (PCR) Not detected (NOT DETECT) 02/22/23 05:09 SARS-CoV-2 Ag (Rapid) negative (Negative) 02/22/23 00:45 Vitals Last Vital Signs Temp 98.0 F 02/22/23 07:34 Pulse 65 02/22/23 08:22 Resp 16 02/22/23 08:19 BP 121/77 02/22/23 07:34 Pulse Ox 96 02/22/23 08:19 O2 Del Method Nasal Cannula 02/22/23 08:19 O2 Flow Rate 1 02/22/23 08:19 Discharge Plan Discharge Patient Disposition: Home Condition: Stable Prescriptions: New ondansetron 4 mg tablet,disintegrating 4 mg PO Q8H PRN (Reason: nausea and vomiting) Qty: 15 0RF doxycycline hyclate 100 mg tablet 100 mg PO BID 7 Days Qty: 14 0RF Continued aspirin [Adult Aspirin Regimen] 81 mg tablet,delayed release (DR/EC) 81 mg PO DAILY escitalopram oxalate [Lexapro] 10 mg tablet 20 mg PO DAILY lisinopril 20 mg tablet 20 mg PO DAILY trazodone 150 mg tablet 150 mg PO BEDTIME hydrocodone-acetaminophen 7.5-325 mg Tablet 1 tab PO Q6H PRN (Reason: Pain) Rx Instructions: patiet's bottle empty omeprazole 20 mg Capsule,Delayed Release(Dr/Ec) 20 mg PO DAILY Jardiance 25 mg Tablet 25 mg PO DAILY simvastatin 80 mg tablet 80 mg PO BEDTIME Discharge Orders: Discharge Order (Routine); Ordered 02/22/23 Ordered By: Moise Duval Referrals: Belkys Morales MD [Referring] - Discharge Diet: Cardiac Discharge Activity: Increase activity as tolerated Patient Instructions: Acute Headache (ED), Viral Syndrome (ED), Abdominal Pain (ED), Opioid Safety Activity Restrictions/Additional Instructions: Thank you for visiting the emergency department. You were seen and evaluated for generalized illness. The exact cause of your symptoms is unclear however likely related to viral syndrome and does not appear to need hospitalization at this time. I will prescribe antinausea medication. You may use [id number] medications such as acetaminophen and ibuprofen for pain however please do not exceed the daily recommended dosage as listed on the packaging and please keep in mind that many namebrand medications contain the same active ingredients. Please avoid these medications if previously instructed to do so by another physician due to other underlying medical condition. Please ensure that you are staying hydrated. Please follow-up with your primary care provider. Return to the emergency department for uncontrolled symptoms or anything else that you are concerned about and feel needs emergency department evaluation. Discharge Attestations Time Spent in Discharge Care*: greater than 30 min Quality Metrics Clinical Quality Measures [ No reported AMI, CVA or VTE this stay] Coding Level of Care Code Acute Code for Chg Fwd Diagnoses Hypoxia R09.02 Nausea, vomiting, and diarrhea R11.2; R19.7 Headache R51.9 Malaise and fatigue R53.81; R53.83 Viral syndrome B34.9
[2023-02-22 10:22] LABS: Thyroid Stimulating Hormone 1.78 uIU/mL (0.27-4.20)
[2023-02-23 13:55] LABS: Lyme AB Screen <0.90 index
[2023-03-02 16:19] LABS: RMSF IGG NOT DETECTED; RMSF IGM NOT DETECTED
[2023-03-02 17:35] LABS: E. Chaffeensis AB IGG <1:64; E. Chaffeensis AB IGM <1:20
== END 2023-02-22 12:25 | disposition home or self-care (01) ==
LOC: ER 04:52 → MEDSURG 06:38
PROVIDERS: Admitting Provider Internal Medicine; Emergency Provider Emergency Medicine; PCP Family Medicine; Visit Provider Internal Medicine
DX: B34.8 Other viral infections of unspecified site (principal); R09.02 Hypoxemia; R51.9 Headache, unspecified; I44.0 Atrioventricular block, first degree; E11.22 Type 2 diabetes mellitus with diabetic chronic kidney disease; N18.9 Chronic kidney disease, unspecified; Z79.84 Long term (current) use of oral hypoglycemic drugs; Z79.82 Long term (current) use of aspirin
CPT/HCPCS: 36415; 36416; 70450; 71045; 74177; 80048; 80053; 81003; 82009; 82962; 83605; 83880; 84145; 84443; 85025; 86140; 86618; 86666; 86757; 87426; 87486; 87581; 87633; 93005; 94640; 94664; 96365; 96372; 96375; 96376; 99285; G0378; J1644; J1885; J1956; J2270; J2405; J2765; J3490; J7030; J7613; J7799; Q9967

== ENCOUNTER 2023-02-22 19:23 | Emergency (ER) | payer MEDICARE, MEDICAID, SELFPAY ==
[2023-02-22 19:27] VITALS: BP 165/87; PULSE 96; RESP 18; TEMP 37.1; O2SAT 94; BMI 33.9
--- NOTE | 2023-02-22 20:02 | ED_ITS ---
HPI - Nausea/Vomiting/Diarrhea General: Chief complaint: Nausea/Vomiting/Diarrhea Stated complaint: N\V Dizzy Time Seen by Provider: 02/22/23 20:02 History of Present Illness: Ms. Bowman is a 78-year-old lady presenting to the emergency department for nausea and vomiting and generalized malaise. She was seen last night with abdominal pain with nausea, vomiting, headache, diarrhea and found to have a viral syndrome. She was admitted for observation overnight as she was requiring oxygen however discharged earlier today. She was discharged with antinausea medication however has been throwing it up. Continues to have headache and generalized malaise. Intensity symptoms is moderate. Course has resumed. No other specific changes in health, exacerbating, or alleviating factors identified. Onset (ago): day(s) Description of vomiting: watery Associated nausea: Yes Severity: moderate Exacerbating factors: eating Associated symtoms: Reports fatigue, headache(s), anorexia, malaise and nausea Review of Systems General: Reports: 10 or more systems reviewed and unremarkable except in HPI and below Const: Reports: fatigue and malaise GI: Reports: nausea Neuro: Reports: headache(s) PFSH ED PFSH: Medical History Diabetes Sacroiliac joint dysfunction of right side Surgical History History of ankle surgery Family History Other Cancer Diabetes Hyperlipidemia Social History Smoking and tobacco status: never smoked Physical Exam Const: COMMON NORMALS: alert GENERAL APPEARANCE: cooperative and well developed HENMT: COMMON NORMALS: normocephalic and atraumatic HEAD & SCALP: normocephalic and atraumatic Eye: COMMON NORMALS: conjunctivae normal CONJUNCTIVA: Yes conjunctivae normal SCLERA: sclerae normal Neck/C-Spine: COMMON NORMALS: supple GENERAL: Yes trachea midline Resp: COMMON NORMALS: clear to auscultation bilaterally EFFORT & INSPECTION: Yes able to speak in complete sentences AUSCULTATION: clear to auscultation bilaterally Cardio: COMMON NORMALS: regular rate and regular rhythm RATE: regular rate RHYTHM: regular rhythm GI: COMMON NORMALS: Soft to palpation PALPATION: Yes Soft to palpation and No Tenderness to palpation present (GI) Extremity: GENERAL: Yes normal exam except as noted and No edema Neuro: COMMON NORMALS: moves all extremities SENSORIUM/ORIENTATION: Yes alert and No Orientation impaired Psych: COMMON NORMALS: mental status grossly normal and Normal thought process present THOUGHT PROCESS: Normal thought process present Procedures Lumbar Puncture Time Out Performed: Yes Patient Position: upright Skin Prep: Povidone-Iodine 1% Local Anesthetic: lidocaine 1% and with epi Amount of anesthesia used (mL): 10 Spinal Needle Gauge: 20G Interspace Used: L3-L4 Fluid Initially Obtained: clear Complications: none Course Vital Signs: Vital signs: Vital Signs Temperature 98.7 F 02/22/23 19:27 Pulse Rate 96 02/22/23 19:27 Respiratory Rate 18 02/22/23 19:27 Blood Pressure 165/87 02/22/23 19:27 Pulse Oximetry 94 02/22/23 19:27 Oxygen Delivery Me thod Room Air 02/22/23 19:27 MDM - Nausea/Vomiting/Diarrhea Medical Decision Making 78-year-old lady returning to the emergency department for nausea, vomiting, headache and generalized illness. Patient is ill on appearance though nontoxic. No meningismus or focal neurologic deficits appreciated. Repeat labs reveal no leukocytosis, normal hemoglobin and platelet count. Metabolic panel actually mildly improved from baseline recent. Electrolytes are not significantly abnormal. Recent imaging is reviewed as well as recent labs. I do not feel that repeat imaging is needed at this time. Patient does not report new symptoms ne cessarily only worsening of previous/recurrence of previous despite treatment. Prior enterovirus/rhinovirus was positive. Symptoms are likely related to significant viral syndrome. Patient treated with multiple rounds of medication for both nausea and pain. She only has transient improvement. Given significant headache I discussed risks and benefits of lumbar puncture for evaluation of meningitis as enterovirus is within the group of common viral meningitic causes. Lumbar puncture was performed without complication and there is no evidence of viral or bacterial meningitis. Patient able to tolerate p.o. intake. Patient and daughter understandably frustrated regarding symptoms. Patient feels quite ill however I believe that this is still related to the viral illness. We have not maximized outpatient treatment options and I will add additional antinausea options including rectal option and pain medication. As the patient was deemed appropriate for discharge and just discharged from the hospital after a very short observation admission I believe that she is unlikely to benefit from readmission. The results of ED evaluation were discussed with the patient and family includin g prescriptions and/or symptomatic cares (if applicable) including appropriate and responsible use, followup plan, and return precautions. They were frustrated with the care however verbalized understanding. Medical Records I reviewed the patient's medical records. Lab Data I reviewed the patient's lab results. 02/22/23 20:37 02/22/23 20:37 Laboratory Results WBC 7.4 10^3/uL (4.0-10.0) 02/22/23 20: RBC 4.31 10^6/uL (4.1-5.3) 02/22/23 20: Hgb 13.2 g/dL (11.5-15.3) 02/22/23 20: Hct 41.7 % (37.0-47.0) 02/22/23 20: MCV 96.8 fl (81-99) 02/22/23 20: MCH 30.6 pg (28.0-34.0) 02/22/23 20:37 MCHC 31.7 g/dL (30.0-36.0) 02/22/23 20:37 RDW 13.4 % (12.1-15.1) 02/22/23 20: Plt Count 170 10^3/cmm (130-400) 02/22/23 20:37 MPV 11.1 fL (7.4-10.4) H 02/22/23 20:37 Neut % (Auto) 81.0 % 02/22/23 20:37 Lymph % (Auto) 13.9 % 02/22/23 20:37 [place] % (Auto) 4.0 % 02/22/23 20:37 Eos % (Auto) 0.5 % 02/22/23 20:37 Baso % (Auto) 0.1 % 02/22/23 20:37 Neut # (Auto) 6.01 10^3/uL (1.8-7.7) 02/22/23 20:37 Lymph # (Auto) 1.0 10^3/uL (0.8-4.8) 02/22/23 20:37 [place] # (Auto) 0.3 10^3/uL (0.2-0.9) 02/22/23 20:37 Eos # (Auto) 0.0 10^3/uL (0.0-0.8) 02/22/23 20:37 Baso # (Auto) 0.0 10^3/uL (0.0-0.1) 02/22/23 20:37 Nucleated RBC % (auto) 0 % 02/22/23 20:37 Nucleated RBCs # 0.0 /100WBC 02/22/23 20:37 Sodium 136 mmol/L (136-145) 02/22/23 20:37 Potassium 4.4 mmol/L (3.5-5.1) 02/22/23 20:37 Chloride 99 mmol/L (98-107) 02/22/23 20:37 Carbon Dioxide 26 mmol/L (22-29) 02/22/23 20:37 Anion Gap 15.4 (5-19) 02/22/23 20:37 BUN 28 mg/dL (8-23) H 02/22/23 20:37 Creatinine 1.4 mg/dL (0.5-0.9) H 02/22/23 20:37 GFR Calculation Not Reportable 02/22/23 20:37 Glucose 244 mg/dL (65-115) H 02/22/23 20:37 Calculated Osmolality 296 mOsm/kg (285-295) H 02/22/23 20:37 Calcium 9.0 mg/dL (8.5-10.5) 02/22/23 20:37 CSF Appearance Clear (CLEAR) 02/22/23 23:25 CSF Color Colorless (COLORLESS) 02/22/23 23:25 CSF WBC 2 /uL (0-5) 02/22/23 23:25 CSF RBC 0 10^3/uL (0-0) 02/22/23 23:25 CSF Mononuclear # Auto 0.002 10^3/uL (50-90) L 02/22/23 23:25 CSF Mononuclear WBCs % 100 % (50-90) H 02/22/23 23:25 CSF Polynuclear WBCs # 0.000 10^3/uL (0-10) 02/22/23 23:25 CSF Polynuclear WBCs % 0 % (0-10) 02/22/23 23:25 CSF Glucose 128 mg/dL (40-70) H 02/22/23 23:25 CSF Total Protein 38 mg/dL (15-45) 02/22/23 23:25 Discharge Plan Discharge Patient Disposition: Home Clinical Impression: Enteroviral infection, Nausea and vomiting, Headache Condition: Stable Prescriptions: New ondansetron 4 mg tablet,disintegrating 4 mg PO Q8H PRN (Reason: nausea and vomiting) Qty: 15 0RF oxycodone 5 mg tablet 5 mg PO Q4H PRN (Reason: pain) Qty: 10 0RF prochlorperazine 25 mg suppository 25 mg [place] BID PRN (Reason: nausea and vomiting) Qty: 12 0RF No Action aspirin [Adult Aspirin Regimen] 81 mg tablet,delayed release (DR/EC) 81 mg PO DAILY escitalopram oxalate [Lexapro] 10 mg tablet 20 mg PO DAILY lisinopril 20 mg tablet 20 mg PO DAILY trazodone 150 mg tablet 150 mg PO BEDTIME ondansetron 4 mg tablet,disintegrating 4 mg PO Q8H PRN (Reason: nausea and vomiting) Qty: 15 0RF hydrocodone-acetaminophen 7.5-325 mg Tablet 1 tab PO Q6H PRN (Reason: Pain) Rx Instructions: patiet's bottle empty omeprazole 20 mg Capsule,Delayed Release(Dr/Ec) 20 mg PO DAILY Jardiance 25 mg Tablet 25 mg PO DAILY simvastatin 80 mg tablet 80 mg PO BEDTIME Discharge Orders: Discharge ED (Routine); Ordered 02/23/23 Ordered By: Chris Schrader Referrals: Luis Antonio Urbina DO [Primary Care Provider] - Discharge Diet: Advance as tolerated and Clear Liquid Discharge Activity: Increase activity as tolerated Patient Instructions: Acute Headache (ED), Acute Nausea and Vomiting (ED), Viral Syndrome (ED), Opioid Safety Activity Restrictions/Additional Instructions: Thank you for visiting the ED. you were seen and evaluated for generalized illness. The most likely cause your symptoms continues to be viral in nature. Please continue supportive care. Ensure that you are staying hydrated. You may use [id number] medications such as acetaminophen and ibuprofen for pain however please do not exceed the daily recommended dosage as listed on the packaging and please keep in mind that many namebrand medications contain the same active ingredients. Please avoid these medications if previously instructed to do so by another physician due to other underlying medical condition. I will prescribe dissolvable Zofran as well as rectal suppository antinausea medication. Use these separately as the combination can cause adverse effects. Do not combine them with other sedating medications. Do not combine oxycodone and other opioids or sedating medication. Watch for signs of oversedation. Please follow-up with your primary care provider. Return for inability to tolerate oral intake or anything else that you are baltazar rned about and feel needs emergency department evaluation. Coding Level of Care Code ED Logistics Intern for Brody Donovan
[2023-02-22] MEDS: sodium chloride 0.9% 1,000 ML 999 ML IV (20:34)
[2023-02-22] MEDS: ondansetron 2 mg/ML SDV 2 mL 4 MG IVP ×2 (20:35→22:32)
[2023-02-22] MEDS: ketorolac 30 mg/mL INJ 15 MG IVP (20:35)
[2023-02-22 20:42] LABS: Basophils % 0.1 %; Eosinophils % 0.5 %; Hematocrit 41.7 % (37.0-47.0); Hemoglobin 13.2 g/dL (11.5-15.3); Lymphocytes % 13.9 %; Mean Corpuscular HGB Conc 31.7 g/dL (30.0-36.0); Mean Corpuscular Hemoglobin 30.6 pg (28.0-34.0); Mean Corpuscular Volume 96.8 fl (81-99); Mean Platelet Volume 11.1 fL (7.4-10.4); Monocytes # 0.3 10^3/uL (0.2-0.9); Neutrophils # 6.01 10^3/uL (1.8-7.7); Nucleated Red Blood Cells % 0 %; Platelet Count 170 10^3/cmm (130-400); Red Blood Count 4.31 10^6/uL (4.1-5.3); Red Cell Distribution Width 13.4 % (12.1-15.1); White Blood Count 7.4 10^3/uL (4.0-10.0)
--- NOTE | 2023-02-22 20:50 | PC.NURSE ---
PT IS 89% ON RA PLACED ON 2L VIA NC.
[2023-02-22 20:59] LABS: Blood Urea Nitrogen 28 mg/dL (8-23); Carbon Dioxide 26 mmol/L (22-29); Chloride 99 mmol/L (98-107); Glucose 244 mg/dL (65-115); Osmolality Calculated 296 mOsm/kg (285-295); Sodium 136 mmol/L (136-145)
[2023-02-22 21:02] LABS: Anion Gap 15.4 (5-19); Potassium 4.4 mmol/L (3.5-5.1)
--- NOTE | 2023-02-22 21:16 | PC.NURSE ---
REPORT GIVEN TO FREDDIE CALDERON ASSUMED CARE.
[2023-02-22] MEDS: metoclopramide 5 mg/mL SDV 2 mL IVP (21:36)
[2023-02-22] MEDS: dexamethasone 10 mg/mL INJ IVP (21:37)
[2023-02-22] MEDS: ipratropium-albuterol 3 mL Neb INHALATION (21:40)
--- NOTE | 2023-02-22 21:43 | PC.RESP ---
Med placed in neb and patient very nauseous. BBS are clear, oxygen saturation 96 on 2lpm. Treatment not given at this time.
[2023-02-22] MEDS: lidocaine 2% viscous 15 ML, aluminum-mag hydrox-simethicon 30 ML, sucralfate oral liq 1 GM PO (22:31)
[2023-02-22] MEDS: sucralfate 1 gm/10 mL Oral Liq UDC PO (22:32)
[2023-02-22] MEDS: meclizine 25 mg tablet PO (22:32)
[2023-02-22 23:57] LABS: Appearance CSF CLEAR (CLEAR); Color CSF COLORLESS (COLORLESS)
[2023-02-23 00:03] LABS: CSF Mononuclear # 0.002 10^3/uL (50-90); Mononuclear WBC CSF % 100 % (50-90); Polynuclear WBC CSF % 0 % (0-10); Red Blood Cell CSF 0 10^3/uL (0-0); White Blood Cell CSF 2 /uL (0-5)
[2023-02-23 00:09] LABS: Glucose CSF 128 mg/dL (40-70); Total Protein CSF 38 mg/dL (15-45)
== END 2023-02-23 02:02 | disposition home or self-care (01) ==
PROVIDERS: Emergency Provider Emergency Medicine; PCP Family Medicine
DX: B34.1 Enterovirus infection, unspecified (principal); Z79.82 Long term (current) use of aspirin; E11.9 Type 2 diabetes mellitus without complications; B34.9 Viral infection, unspecified; R19.7 Diarrhea, unspecified
CPT/HCPCS: 36415; 36416; 62270; 70450; 71045; 74177; 80048; 80053; 80503; 81003; 82009; 82945; 82962; 83605; 83880; 84145; 84157; 84443; 85025; 86140; 86618; 86666; 86757; 87070; 87075; 87205; 87426; 87486; 87581; 87633; 89050; 93005; 94640; 94664; 96365; 96372; 96375; 96376; 99285; G0378; J1100; J1644; J1885; J1956; J2270; J2405; J2765; J3475; J3490; J7030; J7613; J7799; J8597; Q9967

== ENCOUNTER → 2023-03-15 08:25 | Outpatient (BNVA) | payer MEDICARE, MEDICAID, SELFPAY | PROVIDERS: PCP Family Medicine; Referring Provider Family Medicine; Visit Provider Anesthesiology Pain Medicine | DX: G89.29 Other chronic pain (principal); M54.50 Low back pain, unspecified; M16.0 Bilateral primary osteoarthritis of hip; M53.3 Sacrococcygeal disorders, not elsewhere classified | CPT/HCPCS: 99205 ==

== ENCOUNTER 2023-03-16 22:57 | Emergency (ER) | payer MEDICARE, MEDICAID, SELFPAY ==
[2023-03-16 23:13] VITALS: BP 136/83; PULSE 81; RESP 16; TEMP 36.8; O2SAT 96; BMI 32.3
[2023-03-16 23:35] LABS: Basophils % 0.3 %; Eosinophils % 0.1 %; Hematocrit 45.1 % (37.0-47.0); Hemoglobin 14.7 g/dL (11.5-15.3); Lymphocytes # 1.3 10^3/uL (0.8-4.8); Lymphocytes % 19.5 %; Mean Corpuscular HGB Conc 32.6 g/dL (30.0-36.0); Mean Corpuscular Hemoglobin 30.8 pg (28.0-34.0); Mean Corpuscular Volume 94.4 fl (81-99); Mean Platelet Volume 10.9 fL (7.4-10.4); Monocytes # 0.3 10^3/uL (0.2-0.9); Monocytes % 4.3 %; Neutrophils # 5.15 10^3/uL (1.8-7.7); Neutrophils % 75.5 %; Nucleated Red Blood Cells % 0 %; Platelet Count 184 10^3/cmm (130-400); Red Blood Count 4.78 10^6/uL (4.1-5.3); Red Cell Distribution Width 13.3 % (12.1-15.1); White Blood Count 6.8 10^3/uL (4.0-10.0)
[2023-03-16 23:53] LABS: Alanine Aminotransferase 22 U/L (0-33); Albumin Level 4.1 g/dL (3.5-5.2); Alkaline Phosphatase 56 U/L (35-105); Anion Gap 19.4 (5-19); Aspartate Amino Transferase 22 U/L (0-32); Blood Urea Nitrogen 15 mg/dL (8-23); Calcium 9.5 mg/dL (8.5-10.5); Carbon Dioxide 23 mmol/L (22-29); Chloride 99 mmol/L (98-107); Globulin 3.3 g/dL (1.3-4.6); Glucose 245 mg/dL (65-115); Lipase 18 U/L (13-60); Osmolality Calculated 293 mOsm/kg (285-295); Potassium 4.4 mmol/L (3.5-5.1); Sodium 137 mmol/L (136-145); Total Bilirubin 0.5 mg/dL (0.15-1.2); Total Protein 7.4 g/dL (6.6-8.7)
[2023-03-17] MEDS: ondansetron 2 mg/ML SDV 2 mL 4 MG IVP (00:40)
[2023-03-17] MEDS: metoclopramide 5 mg/mL SDV 2 mL IVP (00:40)
[2023-03-17] MEDS: diphenhydrAMINE 50 mg/mL SDV 1mL 25 MG IVP (00:40)
[2023-03-17] MEDS: sodium chloride 0.9% 1,000 ML 999 ML IV (00:41)
[2023-03-17 00:47] LABS: C Reactive Protein 3.9 mg/L (0.0-4.9)
[2023-03-17 01:15] VITALS: PULSE 82; RESP 16; O2SAT 92
[2023-03-17 01:17] LABS: Add Urine Microscopic? YES; Bilirubin Urine Neg (Negative); Blood Urine Neg (Negative); Glucose Urine UA 4+ (Normal); Ketones Urine 1+ (Negative); Leukocyte Esterase Urine 1+ (Negative); Nitrate Urine Negative (Negative); Protein Urine Neg (Negative); Urine Appearance Clear (CLEAR); Urine Color Yellow (Yellow); Urobilinogen Urine Neg (Negative); pH Urine 6 (5-7)
[2023-03-17 01:18] LABS: Add Urine Culture? No; Bacteria Urine TRACE /hpf; Squamous Epithelial Cell Urine 0-4 /hpf (0-5); WBC Urine 0-4 /hpf (0-5)
--- NOTE | 2023-03-17 01:22 | ED_ITS ---
HPI - General Adult General: Chief complaint: General Medical Stated complaint: vomitng Time Seen by Provider: 03/16/23 23:20 Source: patient Mode of arrival: ambulatory Limitations: no limitations History of Present Illness: 78-year-old female states that she has been having headache along with nausea vomiting diarrhea over the last few days states she has been feeling ill for 2 weeks she was diagnosed Enterra virus 2 weeks ago. States headaches mildly she does have a history of migraines denies any severe pains denies any fevers denies any worsening proving factors Associated symptoms: Reports headache(s), nausea and vomiting; Deny chest pain, dyspnea or rash Review of Systems Const: Denies: fever(s) or chills ENMT: Denies: throat pain or dental pain Card: Denies: chest pain Resp: Denies: dyspnea GI: Reports: abdominal pain, nausea and vomiting; Denies: diarrhea : Denies: dysuria Musc: Denies: neck pain or back pain Skin/Breast: Denies: rash Neuro: Reports: headache(s) PFSH ED PFSH: Medical History Abdominal pain Diabetes Headache Hypoxia Malaise and fatigue Nausea, vomiting, and diarrhea Sacroiliac joint dysfunction of right side Viral syndrome Surgical History History of ankle surgery Family History Other Cancer Diabetes Hyperlipidemia Social History Smoking and tobacco status: never smoked Physical Exam Const: COMMON NORMALS: no acute distress, patient oriented x3 and healthy appearing HENMT: COMMON NORMALS: normocephalic and atraumatic HEAD & SCALP: normocephalic and atraumatic Eye: COMMON NORMALS: Equal, round and reactive pupils present and EOMs intact bilaterally PUPIL: Yes Equal, round and reactive pupils present Neck/C-Spine: COMMON NORMALS: full ROM and supple Chest: COMMONS NORMALS: normal inspection of the chest and normal palpation of entire chest wall Resp: COMMON NORMALS: normal respiratory effort, No retractions, No use of accessory muscles and clear to auscultation bilaterally AUSCULTATION: clear to auscultation bilaterally Cardio: COMMON NORMALS: regular rate, regular rhythm and No murmurs present (Cardio) RATE: regular rate RHYTHM: regular rhythm GI: COMMON NORMALS: Normal to inspection, nondistended, normoactive bowel sounds present, Soft to palpation, non-tender and no masses PALPATION: Yes Soft to palpation Extremity: COMMON NORMALS: normal to inspection and full ROM Neuro: COMMON NORMALS: patient oriented x3, moves all extremities and no focal motor deficits Psych: COMMON NORMALS: mental status grossly normal, Normal thought process present and cooperative THOUGHT PROCESS: Normal thought process present Skin: COMMON NORMALS: no rashes or lesions noted and no wounds GENERAL SKIN EXAM: no rashes or lesions noted Course Vital Signs: Vital signs: Vital Signs Temperature 98.3 F 03/17/23 01:45 Pulse Rate 82 03/17/23 01:45 Respiratory Rate 16 03/17/23 01:45 Blood Pressure 136/83 03/17/23 01:45 Pulse Oximetry 92 03/17/23 01:45 [facility] - General Adult Medical Decision Making Patient presents here with headache along with vomiting she feels much improved here after Reglan she had a recent CT head and abdomen is normal no signs of subarachnoid hemorrhage does not need repeat head CT blood work here is normal we will prescribe her Reglan for home. Medical Records I reviewed the patient's medical records. Lab Data I reviewed the patient's lab results. 03/16/23 23:30 03/16/23 23:30 Laboratory Results WBC 6.8 10^3/uL (4.0-10.0) 03/16/23 23:30 RBC 4.78 10^6/uL (4.1-5.3) 03/16/23 23:30 Hgb 14.7 g/dL (11.5-15.3) 03/16/23 23:30 Hct 45.1 % (37.0-47.0) 03/16/23 23:30 MCV 94.4 fl (81-99) 03/16/23 23:30 MCH 30.8 pg (28.0-34.0) 03/16/23 23:30 MCHC 32.6 g/dL (30.0-36.0) 03/16/23 23:30 RDW 13.3 % (12.1-15.1) 03/16/23 23:30 Plt Count 184 10^3/cmm (130-400) 03/16/23 23:30 MPV 10.9 fL (7.4-10.4) H 03/16/23 23:30 Neut % (Auto) 75.5 % 03/16/23 23:30 Lymph % (Auto) 19.5 % 03/16/23 23:30 [place] % (Auto) 4.3 % 03/16/23 23:30 Eos % (Auto) 0.1 % 03/16/23 23:30 Baso % (Auto) 0.3 % 03/16/23 23:30 Neut # (Auto) 5.15 10^3/uL (1.8-7.7) 03/16/23 23:30 Lymph # (Auto) 1.3 10^3/uL (0.8-4.8) 03/16/23 23:30 [place] # (Auto) 0.3 10^3/uL (0.2-0.9) 03/16/23 23:30 Eos # (Auto) 0.0 10^3/uL (0.0-0.8) 03/16/23 23:30 Baso # (Auto) 0.0 10^3/uL (0.0-0.1) 03/16/23 23:30 Nucleated RBC % (auto) 0 % 03/16/23 23: Nucleated RBCs # 0.0 /100WBC 03/16/23 23:30 Sodium 137 mmol/L (136-145) 03/16/23 23:30 Potassium 4.4 mmol/L (3.5-5.1) 03/16/23 23:30 Chloride 99 mmol/L (98-107) 03/16/23 23:30 Carbon Dioxide 23 mmol/L (22-29) 03/16/23 23:30 Anion Gap 19.4 (5-19) H 03/16/23 23:30 BUN 15 mg/dL (8-23) 03/16/23 23:30 Creatinine 1.3 mg/dL (0.5-0.9) H 03/16/23 23:30 GFR Calculation Not Reportable 03/16/23 23: Glucose 245 mg/dL (65-115) H 03/16/23 23:30 Calculated Osmolality 293 mOsm/kg (285-295) 03/16/23 23:30 Calcium 9.5 mg/dL (8.5-10.5) 03/16/23 23:30 Total Bilirubin 0.5 mg/dL (0.15-1.2) 03/16/23 23:30 AST 22 U/L (0-32) 03/16/23 23:30 ALT 22 U/L (0-33) 03/16/23: Alkaline Phosphatase 56 U/L (35-105) 03/16/23 23:30 C-Reactive Protein 3.9 mg/L (0.0-4.9) 03/17/23 00:26 Total Protein 7.4 g/dL (6.6-8.7) 03/16/23: Albumin 4.1 g/dL (3.5-5.2) 03/16/23: Globulin 3.3 g/dL (1.3-4.6) 03/16/23: Lipase 18 U/L (13-60) 03/16/23 23:30 Urine Color Yellow (Yellow) 03/17/23 00:55 Urine Appearance Clear (CLEAR) 03/17/23 00:55 Urine pH 6 (5-7) 03/17/23 00:55 Ur Specific [place] 1.020 (1.005-1.030) 03/17/23 00:55 Urine Protein Neg (Negative) 03/17/23 00:55 Urine Glucose (UA) 4+ (Normal) H 03/17/23 00:55 Urine Ketones 1+ (Negative) H 03/17/23 00:55 Urine Blood Neg (Negative) 03/17/23 00:55 Urine Nitrate Negative (Negative) 03/17/23 00:55 Urine Bilirubin Neg (Negative) 03/17/23 00:55 Urine Urobilinogen Neg mg/dL (Negative) 03/17/23 00:55 Ur Leukocyte Esterase 1+ (Negative) H 03/17/23 00:55 Urine RBC None /hpf (0-2) 03/17/23 00:55 Urine WBC 0-4 /hpf (0-5) H 03/17/23 00:55 Ur Squamous Epith Cells 0-4 /hpf (0-5) H 03/17/23 00:55 Amorphous Sediment Not Reportable 03/17/23 00:55 Urine Bacteria Trace /hpf (NONE) 03/17/23 00:55 Discharge Plan Discharge Patient Disposition: Home Clinical Impression: Headache, Vomiting Condition: Stable Prescriptions: New Reglan 10 mg tablet 10 mg PO Q6H PRN (Reason: nausea and vomiting) Qty: 20 0RF No Action aspirin [Adult Aspirin Regimen] 81 mg tablet,delayed release (DR/EC) 81 mg PO DAILY escitalopram oxalate [Lexapro] 10 mg tablet 20 mg PO DAILY lisinopril 20 mg tablet 20 mg PO DAILY trazodone 150 mg tablet 150 mg PO BEDTIME ondansetron 4 mg tablet,disintegrating 4 mg PO Q8H PRN (Reason: nausea and vomiting) Qty: 15 0RF hydrocodone-acetaminophen 7.5-325 mg Tablet 1 tab PO Q6H PRN (Reason: Pain) Rx Instructions: patiet's bottle empty omeprazole 20 mg Capsule,Delayed Release(Dr/Ec) 20 mg PO DAILY Jardiance 25 mg Tablet 25 mg PO DAILY simvastatin 80 mg tablet 80 mg PO BEDTIME ondansetron 4 mg tablet,disintegrating 4 mg PO Q8H PRN (Reason: nausea and vomiting) Qty: 15 0RF oxycodone 5 mg tablet 5 mg PO Q4H PRN (Reason: pain) Qty: 10 0RF prochlorperazine 25 mg suppository 25 mg [place] BID PRN (Reason: nausea and vomiting) Qty: 12 0RF Discharge Orders: Discharge ED (Routine); Ordered 03/17/23 Ordered By: Alfie Diez Referrals: Luis Antonio Urbina DO [Primary Care Provider] - 1-3 days Discharge Diet: Advance as tolerated Discharge Activity: Resume usual activity Patient Instructions: Acute Nausea and Vomiting (ED), General Headache (ED) Coding Level of Care Code ED Milk Tanker Driver for Brody Donovan
[2023-03-17 01:45] VITALS: BP 136/83; PULSE 82; RESP 16; TEMP 36.8; O2SAT 92
== END 2023-03-17 01:46 | disposition home or self-care (01) ==
PROVIDERS: Emergency Provider Emergency Medicine; PCP Family Medicine
DX: R51.9 Headache, unspecified (principal); R11.11 Vomiting without nausea; Z79.82 Long term (current) use of aspirin; E11.9 Type 2 diabetes mellitus without complications
CPT/HCPCS: 36415; 80053; 81001; 83690; 85025; 86140; 96361; 96374; 96375; 99284; J1200; J2405; J2765; J7030

== ENCOUNTER 2023-09-14 12:16 | Emergency (ER) | payer MEDICARE, MEDICAID, SELFPAY ==
[2023-09-14 12:22] VITALS: BP 154/70; PULSE 70; RESP 18; TEMP 36.8; O2SAT 97; BMI 32.3
--- NOTE | 2023-09-14 12:25 | ECG_ITS ---
[facility] Test Date: 2023-09-14 Pat Name: Terri Bowman Department: Room: Gender: Female Ict Business Analyst: : 1945 Requested By: Tj Nunn Order Number: [id number] Reading MD: Braxton Hodge M.D. Measurements Intervals [place] Rate: 69 P: 76 KS: 199 QRS: 90 QRSD: 90 T: 64 QT: 384 QTc: 414 Interpretive Statements SINUS RHYTHM Compared to ECG 02/22/2023 01:06:20 First degree AV block no longer present Electronically Signed On 09-14-2023 14:21:19 ENGINE LATHE TENDER by Braxton Hodge M.D. [email or web address]
--- NOTE | 2023-09-14 12:29 | XR_ITS ---
WS: [id number] Exam: XR chest 1V portable [id number] Date/Time of Exam: 09/14/2023 12:29 PM Reason For Exam: dyspnea/cough Comparison 02/22/2023. The lungs are clear and fully expanded. Normal cardiomediastinal silhouette. No pleural effusions. Un remarkable bony elements. IMPRESSION: 1. No acute cardiopulmonary finding.
[2023-09-14 12:37] VITALS: BP 154/70; PULSE 75; RESP 18; O2SAT 97
[2023-09-14 12:48] LABS: Basophils % 0.4 %; Eosinophils # 0.1 10^3/uL (0.0-0.8); Eosinophils % 0.7 %; Hematocrit 37.3 % (36-47); Lymphocytes % 27.1 %; Mean Corpuscular HGB Conc 33.5 g/dL (30-55); Mean Corpuscular Hemoglobin 31.8 pg (27-33); Mean Corpuscular Volume 94.9 fl (85-98); Mean Platelet Volume 10.8 fL (7.4-10.4); Monocytes # 0.6 10^3/uL (0.2-0.9); Monocytes % 7.5 %; Neutrophils # 4.69 10^3/uL (1.8-7.7); Neutrophils % 63.9 %; Nucleated Red Blood Cells % 0 %; Platelet Count 165 10^3/cmm (157-399); Red Blood Count 3.93 10^6/uL (3.85-5.65); Red Cell Distribution Width 13.3 % (12.1-15.1); White Blood Count 7.34 10^3/uL (3.29-11.43)
[2023-09-14 13:04] VITALS: RESP 18; O2SAT 98
[2023-09-14 13:07] LABS: Troponin(5th) Baseline 20 ng/L (0-10)
[2023-09-14 13:11] LABS: Alanine Aminotransferase 10 U/L (0-33); Albumin Level 3.9 g/dL (3.5-5.2); Alkaline Phosphatase 53 U/L (35-105); Anion Gap 17.3 (5-19); Aspartate Amino Transferase 14 U/L (0-32); Blood Urea Nitrogen 19 mg/dL (8-23); Calcium 9.6 mg/dL (8.5-10.5); Carbon Dioxide 25 mmol/L (22-29); Chloride 99 mmol/L (98-107); Globulin 2.7 g/dL (1.3-4.6); Glucose 168 mg/dL (65-115); Osmolality Calculated 290 mOsm/kg (285-295); Potassium 4.3 mmol/L (3.5-5.1); Sodium 137 mmol/L (136-145); Total Bilirubin 0.5 mg/dL (0.15-1.2); Total Protein 6.6 g/dL (6.6-8.7)
--- NOTE | 2023-09-14 13:18 | ED_ITS ---
HPI - Chest Pain 2 General: Chief Complaint: Chest Pain Stated Complaint: right side chest pains down to hip Time Seen by Provider: 09/14/23 12:29 Source: patient Mode of arrival: ambulatory History of Present Illness: 38-year-old female presents emergency ro om complaining of right-sided abdominal pain she said it stands all the way up from her abdomen into her chest she is and it radiates into her right shoulder. She has had a lot of nausea but no vomiting says it does not feel like anything to throw up there. She states she has had this for last 4 days has been able to eat or drink denies dysuria urgency or frequency no fever sweats or chills no hematochezia melena hematemesis emesis. MD complaint: chest pain Onset (ago): day(s) (4) Timing of current episode: constant Pain location: right chest Pain radiation: right shoulder Severity: moderate Quality: sharp Relieving factors: nothing Exacerbating factors: nothing Associated symptoms: Reports abdominal pain, nausea and vomiting; Deny diaphoresis, dyspnea, fever(s), leg edema, palpitations, sense of impending doom or syncope Treatment prior to arrival: none Review of Systems 2 Const: Denies: fever(s), chills or diaphoresis Card: Denies: chest pain, palpitations or syncope Resp: Denies: dyspnea GI: Reports: abdominal pain, nausea and vomiting : Denies: flank pain, dysuria, urinary frequency or urinary urgency Musc: Denies: neck pain or back pain Skin/Breast: Denies: rash PFSH ED 2 PFSH: Medical History Viral syndrome Hypoxia Abdominal pain Malaise and fatigue Headache Nausea, vomiting, and diarrhea Diabetes Sacroiliac joint dysfunction of right side Surgical History History of ankle surgery Family History Other Cancer Diabetes Hyperlipidemia Social History Smoking and tobacco/nicotine status: never used tobacco/nicotine Physical Exam 2 Const: COMMON NORMALS: no acute distress GENERAL APPEARANCE: cooperative and comfortable ORIENTATION/CONSCIOUSNESS: Yes awake, Yes oriented to person, Yes oriented to place and Yes oriented to time HENMT: COMMON NORMALS: normocephalic, atraumatic and hearing grossly normal bilaterally HEAD & SCALP: normocephalic and atraumatic Resp: COMMON NORMALS: normal respiratory effort, No retractions, No use of accessory muscles and clear to auscultation bilaterally AUSCULTATION: clear to auscultation bilaterally Cardio: COMMON NORMALS: regular rate, regular rhythm and No murmurs present (Cardio) RATE: regular rate RHYTHM: regular rhythm GI: COMMON NORMALS: No hepatosplenomegaly present AUSCULTATION: Yes normoactive bowel sounds PALPATION: Yes Tenderness to palpation present (GI) Details: RUQ, No Guarding due to palpation present (GI) and Yes No hepatosplenomegaly present Extremity: COMMON NORMALS: normal to inspection, capillary refill normal, no clubbing, cyanosis or edema, no calf tenderness and no pedal edema Neuro: SENSORIUM/ORIENTATION: Yes oriented to person, Yes oriented to place and Yes oriented to time Skin: COMMON NORMALS: no rashes or lesions noted GENERAL SKIN EXAM: no rashes or lesions noted Course 2 Vital Signs: Vital signs: Vital Signs Temperature 98.3 F 09/14/23 12:22 Pulse Rate 75 09/14/23 12:37 Respiratory Rate 18 09/14/23 14:31 Blood Pressure 148/62 09/14/23 15:40 Pulse Oximetry 99 09/14/23 14:31 Oxygen Delivery Me thod Room Air 09/14/23 14:31 MDM - Chest Pain Medical Decision Making Patient presented abdominal pain which had resolved by the time workup was completed. She is feeling much better now. We did notice however that while she was here whenever she fell asleep her oxygen would desaturate into the low 80s whenever you woke her up it would instantly resolve rebounded into the mid 90s. She not having any chest pain or symptoms of this. Will discharge the patient home she can use some [id number] omeprazole as needed follow-up with primary care return to the emergency room if worsens. Encouraged her strongly to follow-up with her primary care regarding sleep apnea. Her desaturations occurred while she was sitting fully upright several times rebounded back to normal afterward with Medical Records I reviewed the patient's medical records. Lab Data I reviewed the patient's lab results. 09/14/23 12:38 09/14/23 12:38 Laboratory Results WBC 7.34 10^3/uL (3.29-11.43) 09/14/23 12:38 RBC 3.93 10^6/uL (3.85-5.65) 09/14/23 12:38 Hgb 12.50 g/dL (11.27-16.99) 09/14/23 12:38 Hct 37.3 % (36-47) 09/14/23 12:38 MCV 94.9 fl (85-98) 09/14/23 12:38 MCH 31.8 pg (27-33) 09/14/23 12:38 MCHC 33.5 g/dL (30-55) 09/14/23 12:38 RDW 13.3 % (12.1-15.1) 09/14/23 12:38 Plt Count 165 10^3/cmm (157-399) 09/14/23 12:38 MPV 10.8 fL (7.4-10.4) H 09/14/23 12:38 Neut % (Auto) 63.9 % 09/14/23 12:38 Lymph % (Auto) 27.1 % 09/14/23 12:38 [place] % (Auto) 7.5 % 09/14/23 12:38 Eos % (Auto) 0.7 % 09/14/23 12:38 Baso % (Auto) 0.4 % 09/14/23 12:38 Neut # (Auto) 4.69 10^3/uL (1.8-7.7) 09/14/23 12:38 Lymph # (Auto) 2.0 10^3/uL (0.8-4.8) 09/14/23 12:38 [place] # (Auto) 0.6 10^3/uL (0.2-0.9) 09/14/23 12:38 Eos # (Auto) 0.1 10^3/uL (0.0-0.8) 09/14/23 12:38 Baso # (Auto) 0.0 10^3/uL (0.0-0.1) 09/14/23 12:38 Nucleated RBC % (auto) 0 % 09/14/23 12:38 Nucleated RBCs # 0.0 /100WBC 09/14/23 12:38 Sodium 137 mmol/L (136-145) 09/14/23 12:38 Potassium 4.3 mmol/L (3.5-5.1) 09/14/23 12:38 Chloride 99 mmol/L (98-107) 09/14/23 12:38 Carbon Dioxide 25 mmol/L (22-29) 09/14/23 12:38 Anion Gap 17.3 (5-19) 09/14/23 12:38 BUN 19 mg/dL (8-23) 09/14/23 12:38 Creatinine 1.2 mg/dL (0.5-0.9) H 09/14/23 12:38 GFR Calculation Not Reportable 09/14/23 12:38 Glucose 168 mg/dL (65-115) H 09/14/23 12:38 Calculated Osmolality 290 mOsm/kg (285-295) 09/14/23 12:38 Calcium 9.6 mg/dL (8.5-10.5) 09/14/23 12:38 Magnesium 2.0 mg/dL (1.7-2.3) 09/14/23 12:38 Total Bilirubin 0.5 mg/dL (0.15-1.2) 09/14/23 12:38 AST 14 U/L (0-32) 09/14/23 12:38 ALT 10 U/L (0-33) 09/14/23 12:38 Alkaline Phosphatase 53 U/L (35-105) 09/14/23 12:38 Troponin T Baseline 20 ng/L (0-10) H 09/14/23 12:38 Troponin T 120 Minute 18.73 ng/L (0-10) H 09/14/23 14:35 Delta Troponin T -1.27 ABS# (0-10) L 09/14/23 14:35 Total Protein 6.6 g/dL (6.6-8.7) 09/14/23 12:38 Albumin 3.9 g/dL (3.5-5.2) 09/14/23 12:38 Globulin 2.7 g/dL (1.3-4.6) 09/14/23 12:38 Lipase 13 U/L (13-60) 09/14/23 12:38 Urine Color Yellow (Yellow) 09/14/23 14:35 Urine Appearance Hazy (CLEAR) A 09/14/23 14:35 Urine pH 8 (5-7) H 09/14/23 14:35 Ur Specific [place] 1.015 (1.005-1.030) 09/14/23 14:35 Urine Protein Trace (Negative) 09/14/23 14:35 Urine Glucose (UA) 4+ (Normal) H 09/14/23 14:35 Urine Ketones 1+ (Negative) H 09/14/23 14:35 Urine Blood Neg (Negative) 09/14/23 14:35 Urine Nitrate Negative (Negative) 09/14/23 14:35 Urine Bilirubin Neg (Negative) 09/14/23 14:35 Prot Sulfosalicylic Acd Positive (Negative) 09/14/23 14:35 Urine Urobilinogen Norm mg/dL (Negative) 09/14/23 14:35 Ur Leukocyte Esterase 2+ (Negative) H 09/14/23 14:35 Urine RBC 0-4 /hpf (0-2) H 09/14/23 14:35 Urine WBC 0-4 /hpf (0-5) H 09/14/23 14:35 Ur Squamous Epith Cells 0-4 /hpf (0-5) H 09/14/23 14:35 Ur Transition Epith Cell 0-4 /hpf 09/14/23 14:35 Other Crystals Starch 15-25 /hpf 09/14/23 14:35 Amorphous Sediment Not Reportable 09/14/23 14:35 Urine Bacteria Trace /hpf (NONE) 09/14/23 14:35 Urine Mucus None /hpf 09/14/23 14:35 All radiology interpretation(s) finalized by discharge Discharge Plan Discharge Patient Disposition: Home Clinical Impression: Abdominal pain, Apnea, sleep Condition: Stable Prescriptions: No Action aspirin [Adult Aspirin Regimen] 81 mg tablet,delayed release (DR/EC) 81 mg PO QAM trazodone 150 mg tablet 150 mg PO BEDTIME hydrocodone-acetaminophen 7.5-325 mg Tablet 1 tab PO Q6H PRN (Reason: Pain) Jardiance 25 mg Tablet 25 mg PO QAM simvastatin 80 mg tablet 80 mg PO BEDTIME methocarbamol 500 mg tablet 500 mg PO QID triamcinolone acetonide 0.5 % cream 1 applic TOPICAL DAILY PRN (Reason: Rash) omeprazole 20 mg capsule,delayed release(DR/EC) 20 mg PO DAILY fluticasone propionate 50 mcg/actuation spray,suspension 2 spray INTRANASAL DAILY Humalog KwikPen Insulin 100 unit/mL insulin pen 7 unit SUBCUT TID escitalopram oxalate 20 mg tablet 20 mg PO QAM Tresiba FlexTouch U-100 100 unit/mL (3 mL) insulin pen 80 unit SUBCUT DAILY Discharge Orders: Discharge ED (Routine); Ordered 09/14/23 Ordered By: Tj Kumar Referrals: Luis Antonio Urbina DO [Primary Care Provider] - Discharge Diet: Usual diet Discharge Activity: Increase activity as tolerated Patient Instructions: Abdominal Pain (ED), Opioid Safety, Pain Management Activity Restrictions/Additional Instructions: Thank you for choosing [facility] for your healthcare needs today. Please realize this is an emergency room and that we are providing you with a medical screening exam and this may not be complete and all inclusive of all the testing and or work up that you may need to determine your ailment or severity of your illness. It is very important that you follow up as instructed or that you return to the Emergency Department should you have concerns or if your condition changes or worsens in any way. You were seen today for abdominal pain CT of your abdomen was negative urine was normal laboratory test did not show any significant abnormalities pain and resolved at the time the workup was completed. We did notice that while you are in the emergency room when you fell asleep your oxygen saturation dropped precipitously into the low 80s whenever we woke you up your oxygen would immediately rebounded to the mid 90s without any difficulty. This likely reflects sleep apnea you should follow-up with your doctor about this for treatment Coding Level of Care Code ED Telegraphic Service Dispatcher for Brody Donovan
--- NOTE | 2023-09-14 13:23 | CT_ITS ---
WS: [id number] CT ABDOMEN AND PELVIS WITH CONTRAST HISTORY: abd pain, right-sided TECHNIQUE: Imaging performed of the abdomen and pelvis with IV contrast. Single phase imaging of the abdomen. Coronal and sagittal reformats are submitted. All CT scans at [facility] use at [address] one of these dose optimization techniques: automated exposure control; mA and/or kV adjustment per patient size (includes targeted exams where dose is matched to clinical indication); or iterative re construction. IV CONTRAST: Omnipaque 350; 100 mL IV. Oral contrast: No DLP: 868.09 mGy.cm COMPARISON: 02/22/2023 Lower thorax: Benign granuloma LEFT lung base. Heart is normal size. No hiatal hernia. Liver/biliary system: Normal size liver. Small cluster of hypodensities in the inferior RIGHT lobe of the liver which are probably cysts but really too small to characterize. These were not definitely p resent on the prior study. No bile duct dilatation. Gallbladder: Prior cholecystectomy. Pancreas: Normal size pancreas and pancreatic duct. No adjacent inflammation. Spleen: Normal size spleen. No mass or infarct. Adrenal glands: Normal. Right kidney: Normal. Left kidney: Normal. Aorta: Mild atherosclerosis with no aneurysm. Lymphadenopathy: None. Free fluid: None. GI tract: No GI tract obstruction. I do believe I can identify the appendix. No findings of appendici tis. Abdominal wall: Unremarkable abdominal wall. No hernia. Pelvis: No free fluid or adenopathy within the pelvis. Bones: RIGHT curvature lumbar spine with increase in the lumbar lordosis. L4 anterolisthesis by 3 mm. IMPRESSION: 1. No acute abdominal or pelvic abnormality. 2. Prior cholecystectomy. 3. Negative appendix. No evidence for appendicitis. 4. No free fluid or adenopathy or free air. 5. Too small to characterize small cluster of hypodensities in the RIGHT lobe of the liver. These ma y be a small cluster cysts.
[2023-09-14] MEDS: iohexol 350 mg/mL 500 mL Btl (per mL) IV (14:08)
[2023-09-14 14:23] LABS: Lipase 13 U/L (13-60)
[2023-09-14] MEDS: ondansetron 2 mg/ML SDV 2 mL 4 MG IVP (14:28)
[2023-09-14] MEDS: sodium chloride 0.9% 1,000 ML 999 ML IV (14:28)
[2023-09-14 14:31] VITALS: BP 156/75; RESP 18; O2SAT 99
[2023-09-14 15:04] LABS: Add Urine Microscopic? YES; Bilirubin Urine Neg (Negative); Blood Urine Neg (Negative); Glucose Urine UA 4+ (Normal); Ketones Urine 1+ (Negative); Leukocyte Esterase Urine 2+ (Negative); Nitrate Urine Negative (Negative); Protein Urine Trace (Negative); Specific Gravity, Urine 1.015 (1.005-1.030); Sulfosalicylic Acid Urine Positive (Negative); Urine Appearance Hazy (CLEAR); Urine Color Yellow (Yellow); Urobilinogen Urine Norm (Negative); pH Urine 8 (5-7)
[2023-09-14 15:07] LABS: Add Urine Culture? No; Bacteria Urine TRACE /hpf; RBC Urine 0-4 /hpf (0-2); Squamous Epithelial Cell Urine 0-4 /hpf (0-5); Transitional Epi Cells Urine 0-4 /hpf; WBC Urine 0-4 /hpf (0-5)
[2023-09-14 15:29] LABS: Troponin 5 2HR 18.73 ng/L (0-10)
[2023-09-14 15:32] LABS: Troponin 5 2HR Delta -1.27 ABS# (0-10)
--- NOTE | 2023-09-14 15:36 | ECG_ITS ---
[facility] Test Date: 2023-09-14 Pat Name: Terri Bowman Department: Room: Gender: Female Claims Assistant: : 1945 Requested By: Tj Nunn Order Number: [id number] Maureen MD: Brian Shepherd M.D. Measurements Intervals [place] Rate: 72 P: 72 [place]: 188 QRS: 94 QRSD: 95 T: 56 QT: 418 QTc: 458 Interpretive Statements SINUS RHYTHM BORDERLINE RIGHT AXIS DEVIATION [QRS AXIS > 90] Compared to ECG 09/14/2023 12:25:05 No significant changes Electronically Signed On 09-15-2023 11:08:22 WIRE SETTER by Brian Shepherd M.D. [id number]
[2023-09-14] MEDS: lidocaine 2% viscous 15 ML, aluminum-mag hydrox-simethicon 30 ML, sucralfate oral liq 1 GM PO (15:37)
[2023-09-14 15:40] VITALS: BP 148/62
== END 2023-09-14 16:27 | disposition home or self-care (01) ==
PROVIDERS: Emergency Provider Family Medicine; PCP Family Medicine
DX: R10.11 Right upper quadrant pain (principal); G47.30 Sleep apnea, unspecified
CPT/HCPCS: 36415; 71045; 74177; 80053; 81001; 83690; 83735; 84484; 85025; 93005; 96361; 96374; 99285; J2405; J7030; Q9967

== ENCOUNTER 2023-09-17 02:50 | Emergency (ER) | payer MEDICARE, MEDICAID, SELFPAY ==
[2023-09-17 02:52] VITALS: BP 156/85; PULSE 61; RESP 18; TEMP 36.6; O2SAT 99; BMI 27.4
--- NOTE | 2023-09-17 02:56 | ED_ITS ---
HPI - Abdominal Pain 2 General: Chief Complaint: Abdominal Pain Stated Complaint: ABD PAIN Time Seen by Provider: 09/17/23 02:57 Source: patient Mode of arrival: ambulatory Limitations: no limitations History of Present Illness: 78-year-old female states she been havin g abdominal cramping along with nausea and vomiting for the last 4 days patient was seen here on the had workup with CT that were normal she states that she still had nausea since then she has not been taking any thing for nausea at home. She denies any fevers denies any dysuria. Associated Symptoms: Reports nausea; Denies chills, diarrhea, dysuria, fever(s) and vomiting Review of Systems 2 Const: Denies: fever(s), chills, body aches or change in appetite ENMT: Denies: throat pain or dental pain Card: Denies: chest pain Resp: Denies: dyspnea GI: Reports: abdominal pain and nausea; Denies: vomiting or diarrhea : Denies: dysuria Musc: Denies: neck pain or back pain Skin/Breast: Denies: rash Neuro: Denies: headache(s) PFSH ED 2 PFSH: Medical History Viral syndrome Hypoxia Abdominal pain Malaise and fatigue Headache Nausea, vomiting, and diarrhea Diabetes Sacroiliac joint dysfunction of right side Surgical History History of ankle surgery Family History Other Cancer Diabetes Hyperlipidemia Social History Smoking and tobacco/nicotine status: never used tobacco/nicotine Physical Exam 2 Const: COMMON NORMALS: no acute distress, patient oriented x3 and healthy appearing HENMT: COMMON NORMALS: normocephalic and atraumatic HEAD & SCALP: n ormocephalic and atraumatic Eye: COMMON NORMALS: Equal, round and reactive pupils present and EOMs intact bilaterally PUPIL: Yes Equal, round and reactive pupils present Neck/C-Spine: COMMON NORMALS: full ROM and supple Chest: COMMONS NORMALS: normal inspection of the chest Resp: COMMON NORMALS: normal respiratory effort, No retractions, No use of accessory muscles and clear to auscultation bilaterally AUSCULTATION: clear to auscultation bilaterally Cardio: COMMON NORMALS: regular rate, regular rhythm and No murmurs present (Cardio) RATE: regular rate RHYTHM: regular rhythm GI: COMMON NORMALS: Normal to inspection, nondistended, normoactive bowel sounds present, Soft to palpation, non-tender and no masses PALPATION: Yes Soft to palpation Extremity: COMMON NORMALS: normal to inspection and full ROM Neuro: COMMON NORMALS: patient oriented x3, moves all extremities and no focal motor deficits Psych: COMMON NORMALS: mental status grossly normal, Normal thought process present and cooperative THOUGHT PROCESS: Normal thought process present Skin: COMMON NORMALS: no rashes or lesions noted and no wounds GENERAL SKIN EXAM: no rashes or lesions noted Course 2 Vital Signs: Vital signs: Vital Signs Temperature 98 F 09/17/23 02:52 Pulse Rate 61 09/17/23 04:19 Respiratory Rate 18 09/17/23 04:19 Blood Pressure 139/74 09/17/23 04:19 Pulse Oximetry 91 09/17/23 04:19 Oxygen Delivery Me thod Room Air 09/17/23 03:05 MDM - Abdominal Pain Medical Decision Making Patient presents with abdominal pain along with nausea patient's blood work here is all normal she had a CT scan 3 days ago was normal as well. She is well- appearing here and stable for discharge we will get her follow-up with surgery we will prescribe her Zofran for home she is return if worsening. Medical Records I reviewed the patient's medical records. Lab Data I reviewed the patient's lab results. 09/17/23 03:20 09/17/23 03:20 Labs/Radiology: Laboratory Results WBC 6.73 10^3/uL (3.29-11.43) 09/17/23 03:20 RBC 4.16 10^6/uL (3.85-5.65) 09/17/23 03:20 Hgb 13.00 g/dL (11.27-16.99) 09/17/23 03:20 Hct 38.2 % (36-47) 09/17/23 03:20 MCV 91.8 fl (85-98) 09/17/23 03:20 MCH 31.3 pg (27-33) 09/17/23 03:20 MCHC 34.0 g/dL (30-55) 09/17/23 03:20 RDW 13.5 % (12.1-15.1) 09/17/23 03:20 Plt Count 208 10^3/cmm (157-399) 09/17/23 03:20 MPV 10.1 fL (7.4-10.4) 09/17/23 03:20 Neut % (Auto) 54.3 % 09/17/23 03:20 Lymph % (Auto) 36.0 % 09/17/23 03:20 [place] % (Auto) 7.3 % 09/17/23 03:20 Eos % (Auto) 1.5 % 09/17/23 03:20 Baso % (Auto) 0.6 % 09/17/23 03:20 Neut # (Auto) 3.66 10^3/uL (1.8-7.7) 09/17/23 03:20 Lymph # (Auto) 2.4 10^3/uL (0.8-4.8) 09/17/23 03:20 [place] # (Auto) 0.5 10^3/uL (0.2-0.9) 09/17/23 03:20 Eos # (Auto) 0.1 10^3/uL (0.0-0.8) 09/17/23 03:20 Baso # (Auto) 0.0 10^3/uL (0.0-0.1) 09/17/23 03:20 Nucleated RBC % (auto) 0 % 09/17/23 03:20 Nucleated RBCs # 0.0 /100WBC 09/17/23 03:20 Sodium 137 mmol/L (136-145) 09/17/23 03:20 Potassium 3.8 mmol/L (3.5-5.1) 09/17/23 03:20 Chloride 100 mmol/L (98-107) 09/17/23 03:20 Carbon Dioxide 26 mmol/L (22-29) 09/17/23 03:20 Anion Gap 14.8 (5-19) 09/17/23 03:20 BUN 13 mg/dL (8-23) 09/17/23 03:20 Creatinine 1.2 mg/dL (0.5-0.9) H 09/17/23 03:20 GFR Calculation Not Reportable 09/17/23 03:20 Glucose 217 mg/dL (65-115) H 09/17/23 03:20 Calculated Osmolality 291 mOsm/kg (285-295) 09/17/23 03:20 Lactic Acid 1.7 mmol/L (0.5-2.2) 09/17/23 03:20 Calcium 9.7 mg/dL (8.5-10.5) 09/17/23 03:20 Total Bilirubin 0.4 mg/dL (0.15-1.2) 09/17/23 03:20 AST 15 U/L (0-32) 09/17/23 03:20 ALT 10 U/L (0-33) 09/17/23 03:20 Alkaline Phosphatase 51 U/L (35-105) 09/17/23 03:20 Total Protein 7.0 g/dL (6.6-8.7) 09/17/23 03:20 Albumin 3.7 g/dL (3.5-5.2) 09/17/23 03:20 Globulin 3.3 g/dL (1.3-4.6) 09/17/23 03:20 Lipase 22 U/L (13-60) 09/17/23 03:20 No radiology studies performed this visit Discharge Plan Discharge Patient Disposition: Home Clinical Impression: Vomiting Qualifiers: Vomiting type: unspecified Nausea presence: with nausea Qualified Code(s): R 11.2 - Nausea with vomiting, unspecified Condition: Stable Prescriptions: New ondansetron 4 mg tablet,disintegrating 4 mg PO Q6H PRN (Reason: nausea and vomiting) Qty: 14 0RF No Action aspirin [Adult Aspirin Regimen] 81 mg tablet,delayed release (DR/EC) 81 mg PO QAM trazodone 150 mg tablet 150 mg PO BEDTIME hydrocodone-acetaminophen 7.5-325 mg Tablet 1 tab PO Q6H PRN (Reason: Pain) Jardiance 25 mg Tablet 25 mg PO QAM simvastatin 80 mg tablet 80 mg PO BEDTIME methocarbamol 500 mg tablet 500 mg PO QID triamcinolone acetonide 0.5 % cream 1 applic TOPICAL DAILY PRN (Reason: Rash) omeprazole 20 mg capsule,delayed release(DR/EC) 20 mg PO DAILY fluticasone propionate 50 mcg/actuation spray,suspension 2 spray INTRANASAL DAILY Humalog KwikPen Insulin 100 unit/mL insulin pen 7 unit SUBCUT TID escitalopram oxalate 20 mg tablet 20 mg PO QAM Tresiba FlexTouch U-100 100 unit/mL (3 mL) insulin pen 80 unit SUBCUT DAILY Discharge Orders: Discharge ED (Routine); Ordered 09/17/23 Ordered By: Alfie Diez Referrals: Jaime Lakhani MD [Physician] - 1-3 days Luis Antonio Urbina DO [Primary Care Provider] - 1-3 days Discharge Diet: Advance as tolerated Discharge Activity: Resume usual activity Patient Instructions: Acute Nausea and Vomiting (ED) Coding Level of Care Code ED Civil Engineering Draftsperson for Brody Donovan
[2023-09-17 03:05] VITALS: BP 156/85; PULSE 62; RESP 18; O2SAT 97
[2023-09-17 03:24] LABS: Basophils % 0.6 %; Eosinophils # 0.1 10^3/uL (0.0-0.8); Eosinophils % 1.5 %; Hematocrit 38.2 % (36-47); Lymphocytes # 2.4 10^3/uL (0.8-4.8); Mean Corpuscular Hemoglobin 31.3 pg (27-33); Mean Corpuscular Volume 91.8 fl (85-98); Mean Platelet Volume 10.1 fL (7.4-10.4); Monocytes # 0.5 10^3/uL (0.2-0.9); Monocytes % 7.3 %; Neutrophils # 3.66 10^3/uL (1.8-7.7); Neutrophils % 54.3 %; Nucleated Red Blood Cells % 0 %; Platelet Count 208 10^3/cmm (157-399); Red Blood Count 4.16 10^6/uL (3.85-5.65); Red Cell Distribution Width 13.5 % (12.1-15.1); White Blood Count 6.73 10^3/uL (3.29-11.43)
[2023-09-17] MEDS: ondansetron 2 mg/ML SDV 2 mL 4 MG IVP (03:28)
[2023-09-17] MEDS: morphine 4 mg/mL SDV 1 mL IVP (03:30)
[2023-09-17 03:41] LABS: Lactic Sepsis W/Reflex 1.7 mmol/L (0.5-2.2)
[2023-09-17 03:42] LABS: Alanine Aminotransferase 10 U/L (0-33); Albumin Level 3.7 g/dL (3.5-5.2); Alkaline Phosphatase 51 U/L (35-105); Anion Gap 14.8 (5-19); Aspartate Amino Transferase 15 U/L (0-32); Blood Urea Nitrogen 13 mg/dL (8-23); Calcium 9.7 mg/dL (8.5-10.5); Carbon Dioxide 26 mmol/L (22-29); Chloride 100 mmol/L (98-107); Creatinine Clr Calc Pharmacy 41.1693; Globulin 3.3 g/dL (1.3-4.6); Glucose 217 mg/dL (65-115); Lipase 22 U/L (13-60); Osmolality Calculated 291 mOsm/kg (285-295); Potassium 3.8 mmol/L (3.5-5.1); Sodium 137 mmol/L (136-145); Total Bilirubin 0.4 mg/dL (0.15-1.2)
[2023-09-17 04:19] VITALS: BP 139/74; PULSE 61; RESP 18; O2SAT 91
--- NOTE | 2023-09-21 11:06 | DCPLANNER ---
Message sent to General surgery for a follow on ABD pain
== END 2023-09-17 04:19 | disposition home or self-care (01) ==
PROVIDERS: Emergency Provider Emergency Medicine; PCP Family Medicine
DX: R11.2 Nausea with vomiting, unspecified (principal); Z79.82 Long term (current) use of aspirin; Z79.4 Long term (current) use of insulin; E11.9 Type 2 diabetes mellitus without complications
CPT/HCPCS: 80053; 83605; 83690; 85025; 96374; 96375; 99284; J2270; J2405

== ENCOUNTER → 2023-10-12 10:18 | Outpatient (BNVA) | payer MEDICARE, MEDICAID, SELFPAY | PROVIDERS: PCP Family Medicine; Visit Provider Surgery | DX: Z09 Encounter for follow-up examination after completed treatment for conditions other than malignant neoplasm (principal) | CPT/HCPCS: 99203 ==

== ENCOUNTER 2023-10-27 06:24 | Day surgery (SDC) | payer MEDICARE, MEDICAID, SELFPAY ==
--- NOTE | 2023-10-27 06:42 | P.HPUD_ITS ---
Surgery/Procedure H&P Update DATE OF PROCEDURE: October 27, 2023 DATE H&P PERFORMED: 10/12/23 H&P UPDATE INFORMATION: I have reviewed H&P completed within last 30 days, I have examined patient prior to procedure, No changes to prior documentation and H&P is in [facility] [place] on date indicated PLANNED PROCEDURE: Operation Date: 10/27/23 08:20 Proposed Procedures p 00470 egd K21.9(Not Applicable) - Jaime Lakhani MD
--- NOTE | 2023-10-27 06:42 | W.PM.OPSUD ---
Surgery/Procedure H&P Update DATE OF PROCEDURE: October 27, 2023 DATE H&P PERFORMED: 10/12/23 H&P UPDATE INFORMATION: I have reviewed H&P completed within last 30 days, I have examined patient prior to procedure, No changes to prior documentation and H&P is in [facility] [place] [place] EMR on date indicated PLANNED PROCEDURE: Operation Date: 10/27/23 08:20 Proposed Procedures p 51221 egd K21.9(Not Applicable) - Jaime Lakhani MD
[2023-10-27 06:51] VITALS: BP 158/86; PULSE 74; RESP 18; TEMP 36.1; O2SAT 94; BMI 32.3
[2023-10-27 07:04] LABS: Glucose Point of Care 156 mg/dL (70-110)
[2023-10-27] MEDS: sodium chloride 0.9% 1,000 ML 30 ML IV (07:18)
--- NOTE | 2023-10-27 07:40 | ANES.PREANE2 ---
Pre-Anesthetic Assessment Height/Weight: Height 1.68 m Weight 90.718 kg Temp Pulse Resp BP Pulse Ox O2 Del Method 97.0 F L 74 18 158/86 94 Room Air 10/27/23 06:51 10/27/23 06:51 10/27/23 06:51 10/27/23 06:51 10/27/23 06:51 10/27/23 06:51 Preop Diagnosis: GERD Operation Date: 10/27/23 08:20 Proposed Procedures p [id number] egd K21.9(Not Applicable) - Jaime Lakhani MD Familial anesthetic complications: None Was Beta Charlene taken within 24 hours: N/A Was Clonidine taken within 24 hours: N/A Last intake: Intake Last Liquid Date 10/26/23 Last Liquid Time 22:00 Last Solid Date 10/26/23 Last Solid Time 22:00 Social No alcohol and No tobacco Exam alert, oriented x 3, clear to auscultation bilaterally and regular rate & rhythm Airway Submandibular: within normal limits Cervical ROM: within normal limits Mallampati: Class II Comments: Comments: Poor dentition History/ROS No significant history except as noted and No significant complaints Pulmonary None reported CV/HEM Hypertension None reported Hepatic None reported GI Gastroesophageal Reflux Disease (Controlled with meds) Metabolic Diabetes Mellitus, Hyperlipidemia and Morbid Obesity Musc/skel Lower Back Pain and Osteoarthritis/DJD Neuropsych Depression and Headache Anesthetic Plan ASA status: 3 Anesthesia: Anesthesia Evaluation, General and MAC Risk of > 500 ml blood loss (7ml/kg in children): No Medications/Allergies Home Medications Medication Instructions Recorded Confirmed Last Taken Type aspirin 81 mg tablet,delayed 81 mg PO QAM 03/18/20 10/27/23 10/27/23 History release (Adult Aspirin Regimen) trazodone 150 mg tablet 150 mg PO BEDTIME 03/18/20 10/27/23 09/13/23 History empagliflozin 25 mg tablet 25 mg PO QAM 02/22/23 10/27/23 10/26/23 History (Jardiance) hydrocodone 7.5 mg-acetaminophen 1 tab PO Q6H PRN Pain 02/22/23 10/27/23 10/26/23 History 325 mg tablet simvastatin 80 mg tablet 80 mg PO BEDTIME 02/22/23 10/27/23 10/26/23 History escitalopram oxalate 20 mg tablet 20 mg PO QAM 09/14/23 10/27/23 10/26/23 History (Lexapro) fluticasone propionate 50 2 spray intranasal DAILY 09/14/23 10/27/23 10/26/23 History mcg/actuation nasal spray,suspension insulin degludec 100 unit/mL (3 80 unit SUBCUT DAILY 09/14/23 10/27/23 10/26/23 History mL) subcutaneous pen (Tresiba FlexTouch U-100 insulin) insulin lispro 100 unit/mL 7 unit SUBCUT TID 09/14/23 10/27/23 10/26/23 History subcutaneous pen (Humalog KwikPen (U-100) Insulin) omeprazole 20 mg capsule,delayed 20 mg PO DAILY 09/14/23 10/27/23 10/26/23 History release triamcinolone acetonide 0.5 % 1 applic topical DAILY PRN Rash 09/14/23 10/27/23 10/26/23 History topical cream ondansetron 4 mg disintegrating 4 mg PO Q6H PRN nausea and 09/17/23 10/27/23 Unknown Rx tablet vomiting #14 tabs pantoprazole 40 mg tablet,delayed 40 mg PO BID 6 weeks #84 tabs 10/12/23 10/27/23 10/26/23 Rx release (Protonix) sucralfate 100 mg/mL oral 10 ml PO BID 4 weeks #560 mL 10/12/23 10/27/23 10/26/23 Rx suspension Allergies Allergy/AdvReac Type Severity Reaction Status Date / Time No Known Allergies Allergy Verified 10/27/23 06:46 Current Medications Generic Name Dose Route Start Last Admin Trade Name Freq PRN Reason Stop Dose Admin Sodium Chloride 1,000 mls @ 30 mls/hr 10/27/23 07:00 10/27/23 07:18 Sodium Chloride 0.9% IV 10/28/23 06:59 30 mls/hr .Q24H VERONIKA Administration PFSH Anesthesia Medical History (Updated 09/25/23 @ 00:01 by GAMA Hayden) Viral syndrome Hypoxia Abdominal pain Malaise and fatigue Headache Nausea, vomiting, and diarrhea Diabetes Sacroiliac joint dysfunction of right side Surgical History (Updated 10/12/23 @ 12:18 by MARC Morris) History of ankle surgery Family History Other Cancer Diabetes Hyperlipidemia Social History Smoking and tobacco/nicotine status: never used tobacco/nicotine Data Anesthesia Cardiac Studies: No Data to Display
[2023-10-27 08:38] VITALS: BP 129/71; PULSE 72; RESP 18; TEMP 36.6; O2SAT 93
[2023-10-27 09:08] VITALS: BP 136/92; PULSE 69; RESP 18; O2SAT 96
--- NOTE | 2023-10-27 14:22 | ANE.PACU2 ---
Inpatient post-anesthesia follow up: Airway intact: Yes Vital signs: Temperature 97.9 F Pulse Rate 69 Respiratory Rate 18 Blood Pressure 136/92 Pulse Oximetry 96 Oxygen Delivery Me thod Room Air Oxygen Flow Rate Fraction of Inspir ed Oxygen Hydration adequate: Yes Nausea and vomiting: No Pain level: 2 Mental status: Baseline
== END 2023-10-27 09:34 | disposition home or self-care (01) ==
PROVIDERS: PCP Family Medicine; Visit Provider Surgery
PROC: 0DJ08ZZ Inspection of Upper Intestinal Tract, Via Natural or Artificial Opening Endoscopic (ICD-10-PCS; CPT 43235; principal; 2023-10-27 08:20)
DX: K21.9 Gastro-esophageal reflux disease without esophagitis (principal); K44.9 Diaphragmatic hernia without obstruction or gangrene; K29.70 Gastritis, unspecified, without bleeding; I10 Essential (primary) hypertension; E11.9 Type 2 diabetes mellitus without complications; E78.5 Hyperlipidemia, unspecified; E66.01 Morbid (severe) obesity due to excess calories; Z68.32 Body mass index [BMI] 32.0-32.9, adult; Z79.82 Long term (current) use of aspirin; Z79.4 Long term (current) use of insulin
CPT/HCPCS: 36416; 43239; 82962; 88305; J2704; J7030

== ENCOUNTER → 2023-11-09 10:11 | Outpatient (BNVA) | payer MEDICARE, MEDICAID, SELFPAY | PROVIDERS: PCP Family Medicine; Visit Provider Surgery | DX: R10.9 Unspecified abdominal pain (principal) | CPT/HCPCS: 99212 ==

== ENCOUNTER → 2024-03-26 10:47 | Outpatient (BNVA) | payer MEDICARE, MEDICAID, SELFPAY | PROVIDERS: PCP Family Medicine; Visit Provider Specialist | DX: M25.551 Pain in right hip (principal); M53.3 Sacrococcygeal disorders, not elsewhere classified; M54.41 Lumbago with sciatica, right side; G89.29 Other chronic pain | CPT/HCPCS: 73502; 99214 ==

== ENCOUNTER 2024-08-10 13:01 | Emergency (ER) | payer MEDICARE, MEDICAID, SELFPAY ==
[2024-08-10 13:17] VITALS: BP 156/82; PULSE 77; RESP 16; TEMP 36.8; O2SAT 95; BMI 32.3
--- NOTE | 2024-08-10 14:30 | CTR_ITS ---
PROCEDURE INFORMATION: Exam: CT Abdomen And Pelvis With Contrast Exam date and time: 08/10/2024 3:49 PM Age: 79 years old Clinical indication: Abdominal pain; Generalized; Additional info: Abd pain TECHNIQUE: Imaging protocol: Computed tomography of the abdomen and pelvis with contrast. Radiation optimization: All CT scans at this facility use at least one of these dose optimization techniques: automated exposure control; mA and/or kV adjustment per patient size (includes targeted exams where dose is matched to clinical indication); or iterative reconstruction. Contrast material: OMNI 350; Contrast volume: 100 ml; Contrast route: INTRAVENOUS (IV); COMPARISON: CT abdomen pelvis w con* [id number] 09/14/2023 2:16 PM RADIATION DOSE METRICS: Total DLP (mGy-cm): 923.13 FINDINGS: Lungs: Benign calcified granuloma left lung base. No significant infiltrate or effusion. Liver: Small ill-defined area of hypodensity inferior right lobe of the liver that are too small to characterize appear unchanged from prior exam 09/14/2023, suggesting benign findings. This could represent an area of focal fatty infiltration. Liver is otherwise unremarkable. Gallbladder and biliary ducts: Previous cholecystectomy. No biliary ductal dilatation. Pancreas: Normal. No ductal dilation. No adjacent inflammation. Spleen: Normal. No splenomegaly. Adrenal glands: Normal. No mass. Kidneys and ureters: Normal. No hydronephrosis. Stomach and bowel: No obstruction. No significant mucosal thickening. Mild sigmoid colon diverticulosis without diverticulitis. Appendix: No evidence of appendicitis. Intraperitoneal space: No free fluid or ascites. No free air. Vasculature: Major vascular structures appear patent. Abdominal aorta is unremarkable in caliber. Lymph nodes: No significant lymphadenopathy. Urinary bladder: Posterior aspect of the urinary bladder extends very low in the pelvis suggestive of cystocele. This is unchanged with prior exam. Reproductive: Suggestion of prior hysterectomy. Bones/joints: Lumbar spondylotic change, more prominent lower lumbar spine. Minimal chronic anterolisthesis L4 on L5. Mild degenerative change of the hips. Soft tissues: Unremarkable. CT/CT abdomen pelvis w con* [id number] IMPRESSION: 1. Previous cholecystectomy and hysterectomy. 2. Suggestion of cystocele. 3. Mild sigmoid colon diverticulosis without diverticulitis. 4. Likely mild focal fatty infiltration of the liver inferior right lobe, unchanged with prior exam 09/14/2023. 5. No acute findings.
--- NOTE | 2024-08-10 14:36 | ED_ITS ---
HPI - Abdominal Pain 2 General: Chief Complaint: Abdominal Pain Stated Complaint: stomach pain(hernia) and yeast infection Time Seen by Provider: 08/10/24 13:37 Source: patient Mode of arrival: ambulatory Limitations: no limitations History of Present Illness: 79-year-old female states she been havin g intermittent abdominal pains for the last few weeks. States mainly after eating been sharp pains in her upper abdomen after eating. Had some diarrhea states she had a decreased appetite as well. She denies any pain currently patient denies any fevers Associated Symptoms: Reports nausea and vomiting; Denies chills, dysuria and fever(s) Related Data Home Medications Medication Instructions Recorded Confirmed aspirin 81 mg tablet,delayed 81 mg PO QAM 03/18/20 08/10/24 release (Adult Aspirin Regimen) trazodone 150 mg tablet 150 mg PO BEDTIME 03/18/20 08/10/24 empagliflozin 25 mg tablet 25 mg PO QAM 02/22/23 08/10/24 (Jardiance) hydrocodone 7.5 mg-acetaminophen 1 tab PO Q6H PRN Pain 02/22/23 08/10/24 325 mg tablet simvastatin 80 mg tablet 80 mg PO BEDTIME 02/22/23 08/10/24 escitalopram oxalate 20 mg tablet 20 mg PO QAM 09/14/23 08/10/24 (Lexapro) fluticasone propionate 50 2 spray intranasal DAILY 09/14/23 08/10/24 mcg/actuation nasal spray,suspension insulin degludec 100 unit/mL (3 80 unit SUBCUT DAILY 09/14/23 08/10/24 mL) subcutaneous pen (Tresiba FlexTouch U-100 insulin) insulin lispro 100 unit/mL 7 unit SUBCUT TID 09/14/23 08/10/24 subcutaneous pen (Humalog KwikPen (U-100) Insulin) omeprazole 20 mg capsule,delayed 20 mg PO DAILY 08/10/24 08/10/24 release Previous Rx's Medication Instructions Recorded ondansetron 4 mg disintegrating 4 mg PO Q6H PRN nausea and 08/10/24 tablet vomiting #14 tabs Allergies Allergy/AdvReac Type Severity Reaction Status Date / Time No Known Allergies Allergy Verified 08/10/24 13:26 Review of Systems 2 Const: Denies: fever(s), chills, body aches or change in appetite ENMT: Denies: throat pain or dental pain Card: Denies: chest pain Resp: Denies: dyspnea GI: Reports: abdominal pain, nausea and vomiting : Denies: dysuria Musc: Denies: neck pain or back pain Neuro: Denies: headache(s) PFSH ED 2 PFSH: Medical History Abdominal pain Viral syndrome Hypoxia Malaise and fatigue Headache Nausea, vomiting, and diarrhea Diabetes Sacroiliac joint dysfunction of right side Surgical History History of ankle surgery Family History Other Cancer Diabetes Hyperlipidemia Social History Smoking and tobacco/nicotine status: never used tobacco/nicotine Physical Exam 2 Const: COMMON NORMALS: no acute distress, patient oriented x3 and healthy appearing HENMT: COMMON NORMALS: normocephalic and atraumatic HEAD & SCALP: n ormocephalic and atraumatic Eye: COMMON NORMALS: Equal, round and reactive pupils present and EOMs intact bilaterally PUPIL: Yes Equal, round and reactive pupils present Neck/C-Spine: COMMON NORMALS: full ROM and supple Chest: COMMONS NORMALS: normal inspection of the chest and normal palpation of entire chest wall Resp: COMMON NORMALS: normal respiratory effort, No retractions, No use of accessory muscles and clear to auscultation bilaterally AUSCULTATION: clear to auscultation bilaterally Cardio: COMMON NORMALS: regular rate, regular rhythm and No murmurs present (Cardio) RATE: regular rate RHYTHM: regular rhythm GI: COMMON NORMALS: Normal to inspection, nondistended, normoactive bowel sounds present, Soft to palpation, non-tender and no masses PALPATION: Yes Soft to palpation Extremity: COMMON NORMALS: normal to inspection and full ROM Neuro: COMMON NORMALS: patient oriented x3, moves all extremities and no focal motor deficits Psych: COMMON NORMALS: mental status grossly normal, Normal thought process present and cooperative THOUGHT PROCESS: Normal thought process present Skin: COMMON NORMALS: no rashes or lesions noted and no wounds GENERAL SKIN EXAM: no rashes or lesions noted Course 2 Vital Signs: Vital signs: Vital Signs Temperature 98.2 F 08/10/24 13:17 Pulse Rate 77 08/10/24 13:17 Respiratory Rate 16 08/10/24 13:17 Blood Pressure 156/82 08/10/24 13:17 Pulse Oximetry 95 08/10/24 13:17 Oxygen Delivery Me thod Room Air 08/10/24 13:17 MDM - Abdominal Pain Medical Decision Making Patient presents here with abdominal pain her exam here is benign blood work CT shows no acute findings we will prescribe her Zofran she is follow-up with PCP she is return if worsening she understands agrees to plan. Medical Records I reviewed the patient's medical records. Lab Data I reviewed the patient's lab results. 08/10/24 14:44 08/10/24 14:44 Labs/Radiology: Radiology Impressions Abdomen/Pelvis CT 08/10/24 14:30 IMPRESSION: 1. Previous cholecystectomy and hysterectomy. 2. Suggestion of cystocele. 3. Mild sigmoid colon diverticulosis without diverticulitis. 4. Likely mild focal fatty infiltration of the liver inferior right lobe, unchanged with prior exam 09/14/2023. 5. No acute findings. Laboratory Results WBC 7.34 10^3/uL (3.29-11.43) 08/10/24 14:44 RBC 4.66 10^6/uL (3.85-5.65) 08/10/24 14:44 Hgb 14.50 g/dL (11.27-16.99) 08/10/24 14:44 Hct 44.6 % (36-47) 08/10/24 14:44 MCV 95.7 fl (85-98) 08/10/24 14:44 MCH 31.1 pg (27-33) 08/10/24 14:44 MCHC 32.5 g/dL (30-55) 08/10/24 14:44 RDW 13.2 % (12.1-15.1) 08/10/24 14:44 Plt Count 177 10^3/cmm (157-399) 08/10/24 14:44 MPV 10.9 fL (7.4-10.4) H 08/10/24 14:44 Neut % (Auto) 59.2 % 08/10/24 14:44 Lymph % (Auto) 32.4 % 08/10/24 14:44 Cross % (Auto) 6.0 % 08/10/24 14:44 Eos % (Auto) 1.8 % 08/10/24 14:44 Baso % (Auto) 0.5 % 08/10/24 14:44 Neut # (Auto) 4.34 10^3/uL (1.8-7.7) 08/10/24 14:44 Lymph # (Auto) 2.4 10^3/uL (0.8-4.8) 08/10/24 14:44 Cross # (Auto) 0.4 10^3/uL (0.2-0.9) 08/10/24 14:44 Eos # (Auto) 0.1 10^3/uL (0.0-0.8) 08/10/24 14:44 Baso # (Auto) 0.0 10^3/uL (0.0-0.1) 08/10/24 14:44 Nucleated RBC % (auto) 0 % 08/10/24 14:44 Nucleated RBCs # 0.0 /100WBC 08/10/24 14:44 Sodium 140 mmol/L (136-145) 08/10/24 14:44 Potassium 4.2 mmol/L (3.5-5.1) 08/10/24 14:44 Chloride 104 mmol/L (98-107) 08/10/24 14:44 Carbon Dioxide 24 mmol/L (22-29) 08/10/24 14:44 Anion Gap 16.2 (5-19) 08/10/24 14:44 BUN 20 mg/dL (8-23) 08/10/24 14:44 Creatinine 1.5 mg/dL (0.5-0.9) H 08/10/24 14:44 GFR Calculation Not Reportable 08/10/24 14:44 Glucose 154 mg/dL (65-115) H 08/10/24 14:44 Calculated Osmolality 296 mOsm/kg (285-295) H 08/10/24 14:44 Calcium 9.6 mg/dL (8.5-10.5) 08/10/24 14:44 Total Bilirubin 0.2 mg/dL (0.15-1.2) 08/10/24 14:44 AST 19 U/L (0-32) 08/10/24 14:44 ALT 15 U/L (0-33) 08/10/24 14:44 Alkaline Phosphatase 58 U/L (35-105) 08/10/24 14:44 Total Protein 7.2 g/dL (6.6-8.7) 08/10/24 14:44 Albumin 4.1 g/dL (3.5-5.2) 08/10/24 14:44 Globulin 3.1 g/dL (1.3-4.6) 08/10/24 14:44 Lipase 29 U/L (13-60) 08/10/24 14:44 All radiology interpretation(s) finalized by discharge Discharge Plan Discharge Patient Disposition: Home Clinical Impression: Abdominal pain Condition: Stable Prescriptions: New ondansetron 4 mg tablet,disintegrating 4 mg PO Q6H PRN (Reason: nausea and vomiting) Qty: 14 0RF No Action aspirin [Adult Aspirin Regimen] 81 mg tablet,delayed release (DR/EC) 81 mg PO QAM trazodone 150 mg tablet 150 mg PO BEDTIME hydrocodone-acetaminophen 7.5-325 mg Tablet 1 tab PO Q6H PRN (Reason: Pain) Jardiance 25 mg Tablet 25 mg PO QAM simvastatin 80 mg tablet 80 mg PO BEDTIME fluticasone propionate 50 mcg/actuation spray,suspension 2 spray INTRANASAL DAILY insulin lispro [Humalog KwikPen Insulin] 100 unit/mL insulin pen 7 unit SUBCUT TID escitalopram oxalate [Lexapro] 20 mg tablet 20 mg PO QAM insulin degludec [Tresiba FlexTouch U-100] 100 unit/mL (3 mL) insulin pen 80 unit SUBCUT DAILY omeprazole 20 mg capsule,delayed release(DR/EC) 20 mg PO DAILY Discharge Orders: Discharge ED (Routine); Ordered 08/10/24 Ordered By: Alfie Diez Referrals: Luis Antonio Urbina DO [Primary Care Provider] - 4-7 days Discharge Diet: Advance as tolerated Discharge Activity: Resume usual activity Patient Instructions: Abdominal Pain (ED) Coding Level of Care Code ED Hand Cementer for Brody Donovan
[2024-08-10 14:51] LABS: Basophils % 0.5 %; Eosinophils # 0.1 10^3/uL (0.0-0.8); Eosinophils % 1.8 %; Hematocrit 44.6 % (36-47); Lymphocytes # 2.4 10^3/uL (0.8-4.8); Lymphocytes % 32.4 %; Mean Corpuscular HGB Conc 32.5 g/dL (30-55); Mean Corpuscular Hemoglobin 31.1 pg (27-33); Mean Corpuscular Volume 95.7 fl (85-98); Mean Platelet Volume 10.9 fL (7.4-10.4); Monocytes # 0.4 10^3/uL (0.2-0.9); Neutrophils # 4.34 10^3/uL (1.8-7.7); Neutrophils % 59.2 %; Nucleated Red Blood Cells % 0 %; Platelet Count 177 10^3/cmm (157-399); Red Blood Count 4.66 10^6/uL (3.85-5.65); Red Cell Distribution Width 13.2 % (12.1-15.1); White Blood Count 7.34 10^3/uL (3.29-11.43)
[2024-08-10 15:13] LABS: Alanine Aminotransferase 15 U/L (0-33); Albumin Level 4.1 g/dL (3.5-5.2); Alkaline Phosphatase 58 U/L (35-105); Anion Gap 16.2 (5-19); Aspartate Amino Transferase 19 U/L (0-32); Blood Urea Nitrogen 20 mg/dL (8-23); Calcium 9.6 mg/dL (8.5-10.5); Carbon Dioxide 24 mmol/L (22-29); Chloride 104 mmol/L (98-107); Creatinine Clr Calc Pharmacy 35.0685; Globulin 3.1 g/dL (1.3-4.6); Glucose 154 mg/dL (65-115); Lipase 29 U/L (13-60); Osmolality Calculated 296 mOsm/kg (285-295); Potassium 4.2 mmol/L (3.5-5.1); Sodium 140 mmol/L (136-145); Total Bilirubin 0.2 mg/dL (0.15-1.2); Total Protein 7.2 g/dL (6.6-8.7)
[2024-08-10] MEDS: iohexol 350 mg/mL 500 mL Btl (per mL) IV (15:50)
[2024-08-10] MEDS: ondansetron 2 mg/ML SDV 2 mL 4 MG IVP (16:04)
[2024-08-10 17:06] VITALS: BP 152/81; PULSE 76; O2SAT 96
== END 2024-08-10 17:07 | disposition home or self-care (01) ==
PROVIDERS: Emergency Provider Emergency Medicine; PCP Family Medicine
DX: R10.9 Unspecified abdominal pain (principal); Z79.82 Long term (current) use of aspirin; Z79.4 Long term (current) use of insulin; E11.9 Type 2 diabetes mellitus without complications
CPT/HCPCS: 36415; 74177; 80053; 83690; 85025; 96374; 99285; J2405

== ENCOUNTER → 2024-08-31 13:25 | Outpatient (BNVA) | payer MEDICARE, MEDICAID, SELFPAY | PROVIDERS: PCP Family Medicine; Visit Provider Registered Nurse Neonatal Intensive Care | DX: M25.571 Pain in right ankle and joints of right foot (principal); Z98.890 Other specified postprocedural states | CPT/HCPCS: 73610 ==

== ENCOUNTER → 2024-12-18 10:47 | Outpatient (BNVA) | payer MEDICARE, MEDICAID, SELFPAY | PROVIDERS: PCP Family Medicine; Visit Provider Nurse Practitioner Family | DX: L82.1 Other seborrheic keratosis (principal); D22.5 Melanocytic nevi of trunk; L82.0 Inflamed seborrheic keratosis; Z78.9 Other specified health status; L53.8 Other specified erythematous conditions; H53.452 Other localized visual field defect, left eye; D48.5 Neoplasm of uncertain behavior of skin; L57.0 Actinic keratosis | CPT/HCPCS: 11102; 17000; 17110; 99203 ==

== ENCOUNTER → 2025-06-19 09:50 | Outpatient (BNVA) | payer MEDICARE, MEDICAID, SELFPAY | PROVIDERS: PCP Family Medicine; Visit Provider Nurse Practitioner Family | DX: L81.7 Pigmented purpuric dermatosis (principal); L57.8 Other skin changes due to chronic exposure to nonionizing radiation; L57.0 Actinic keratosis; D48.5 Neoplasm of uncertain behavior of skin | CPT/HCPCS: 11102; 17004; 99214 ==